=== PATIENT | male | born 1990 | race Caucasian/White ===

== ENCOUNTER 2017-09-12 14:42 | Emergency (ER) | payer SELFPAY ==
[2017-09-12 14:52] VITALS: BP 158/94; PULSE 138; RESP 20; TEMP 36.9; O2SAT 93
[2017-09-12 16:37] VITALS: BP 151/85; PULSE 126; RESP 16; O2SAT 99
--- NOTE | 2017-09-12 17:03 | ED.ANXIETY ---
HPI - Anxiety <NOEL Lucio - Last Filed: 09/12/17 22:32> General Chief Complaint: Anxiety Stated Complaint: PANIC ATTACK Time Seen by Provider: 09/12/17 17:03 Source: patient History of Present Illness HPI narrative: 27-year-old male here for complaint of feeling anxious starting since this morning. Patient states that he did a large amount of cocaine this morning and then felt anxious. He denies any chest pain. He denies any shortness of breath. He does report that he was hyperventilating earlier. No nausea or vomiting. No fevers no chills. After waiting in the waiting room for a while his symptoms have resolved. He states he feels much better at this timeframe and has no complaints. He states he desires to go home. MD complaint: anxiety Related Data Previous Rx's Medication Instructions Recorded chlordiazepoxide HCl 25 mg PO SEE INSTRUCTIONS #30 cap 01/16/17 famotidine [Pepcid] 40 mg PO QDAY 30 Days #0 01/16/17 tramadol 50 mg PO Q4HP PRN #5 tab 01/16/17 lorazepam 1 mg tablet 1 mg PO BIDP PRN #30 tab 06/23/17 Review of Systems <NOEL Lucio - Last Filed: 09/12/17 22:32> Constitutional Denies chills, Denies fever(s), Denies lethargy and Denies weakness Eyes Denies change in vision, Denies eye discharge, Denies irritation and Denies loss of vision ENT Ears, Nose, Mouth, and Throat: Denies change in voice, Denies neck pain and Denies sore throat Cardiovascular Denies chest pain, Denies irregular heart rhythm, Denies lightheadedness, Denies palpitations, Denies dyspnea, Denies dyspnea on exertion and Denies orthopnea Respiratory Denies cough, Denies dyspnea, Denies dyspnea on exertion and Denies wheezing Gastrointestinal Gastrointestinal: Denies abdominal pain, Denies change in bowel habits, Denies diarrhea, Denies nausea and Denies vomiting Genitourinary Denies hematuria, Denies flank pain, Denies urinary incontinence and Denies urinary urgency Musculoskeletal Denies neck pain Integumentary/Breasts Denies pruritus, Denies erythema, Denies rash and Denies wounds Neurologic Denies loss of vision and Denies weakness Psychiatric Reports anxiety Endocrine Denies palpitations Hematologic/Lymphatic Denies easy bruising Allergic/Immunologic Denies wheezing Exam <NOEL Lucio - Last Filed: 09/12/17 22:32> Initial Vital Signs Initial Vital Signs: Vital Signs Temperature 98.5 F 09/12/17 14:52 Pulse Rate 138 H 09/12/17 14:52 Respiratory Rate 20 09/12/17 14:52 Blood Pressure 158/94 H 09/12/17 14:52 Pulse Oximetry 93 09/12/17 14:52 Const General: cooperative and well developed Nutritional Appearance: well nourished Orientation: alert, awake, oriented x3 and not confused HENMI Mouth: oral mucosae normal and moist mucous membranes Throat: tonsils normal and uvula midline Eyes Conjunctivae: conjunctivae normal Sclera: sclerae normal Pupils: PERRL EOM: EOM intact bilaterally Resp Effort & Inspection: normal respiratory effort, able to speak in complete sentences, no respiratory distress and no use of accessory muscles Auscultation: clear to auscultation bilaterally, no rales, no rhonchi and no wheezes Cardio Rate: regular rate Rhythm: regular rhythm Heart Sounds: no click, no gallops, no murmurs and no rubs Pulses: normal peripheral pulses Skin General: no rashes or lesions noted, No jaundice and No petechiae Neuro General: alert, oriented x3, gait normal and no focal motor deficits Speech: speech normal <Dagoberto Salcedo DO - Last Filed: 09/18/17 18:23> Initial Vital Signs Initial Vital Signs: Vital Signs Temperature 98.5 F 09/12/17 14:52 Pulse Rate 138 H 09/12/17 14:52 Respiratory Rate 20 09/12/17 14:52 Blood Pressure 158/94 H 09/12/17 14:52 Pulse Oximetry 93 09/12/17 14:52 Course <NOEL Lucio - Last Filed: 09/12/17 22:32> Vital Signs - 8 hr 09/12/17 14:52 09/12/17 16:37 09/12/17 18:02 Temperature 98.5 F Pulse Rate 138 H 126 H 105 H Respiratory Rate 20 16 16 Blood Pressure 158/94 H Blood Pressure [Right Arm] 151/85 H 132/74 H Pulse Oximetry 93 99 96 09/12/17 19:03 Temperature Pulse Rate 90 Respiratory Rate 18 Blood Pressure 147/90 H Blood Pressure [Right Arm] Pulse Oximetry 95 <Dagoberto Salcedo DO - Last Filed: 09/18/17 18:23> Vital Signs - 8 hr 09/12/17 14:52 09/12/17 16:37 09/12/17 18:02 Temperature 98.5 F Pulse Rate 138 H 126 H 105 H Respiratory Rate 20 16 16 Blood Pressure 158/94 H Blood Pressure [Right Arm] 151/85 H 132/74 H Pulse Oximetry 93 99 96 09/12/17 19:03 Temperature Pulse Rate 90 Respiratory Rate 18 Blood Pressure 147/90 H Blood Pressure [Right Arm] Pulse Oximetry 95 MDM - Anxiety <NOEL Lucio - Last Filed: 09/12/17 22:32> MDM Narrative Medical decision making narrative: Signs and symptoms of his anxiety and hyperventilating have resolved since he has been in the emergency room. His symptoms secondary to the cocaine and alcohol use this morning. His heart rate normalized from the time of admission. Patient desires to go home at this timeframe. He is encouraged to hydrate with plenty of fluids and rest. Follow up with primary care provider. Return emergency room for any worsening symptoms. Discharge Plan Departure Patient Disposition: Home, Self-Care Clinical Impression: Cocaine abuse Discharge Date/Time: 09/12/17 19:04 Interventions: ED Discharge Assessment Last Done: 09/12/17 19:03 Instructions: DI for Cocaine Use Disorder Activity Restrictions/Additional Instructions: Signs and symptoms are secondary to the cocaine and alcohol use earlier today. Symptoms have resolved over time while you were in the emergency room. Plenty of fluids and rest. Follow up with her primary care provider. For any worsening symptoms return to the emergency room. Prescriptions: No Action famotidine [Pepcid] 40 MG tablet 40 mg PO QDAY 30 Days Qty: 0 RF: 0 tramadol 50 MG tablet 50 mg PO Q4HP PRNQty: 5 RF: 0 chlordiazepoxide HCl 25 MG capsule 25 mg PO SEE INSTRUCTIONS Qty: 30 RF: 0 lorazepam [Ativan] 1 mg tablet 1 mg PO BIDP PRN (Reason: anxiety) Qty: 30 RF: 1 Referrals: Erika Jimenez PA-C [Primary Care Provider] - <Dagoberto Salcedo DO - Last Filed: 09/18/17 18:23> Cosign ED Attending Yuanature Attestation: I was available for consultation during this patient's emergency department encounter
[2017-09-12 18:02] VITALS: BP 132/74; PULSE 105; RESP 16; O2SAT 96
--- NOTE | 2017-09-12 18:50 | PC.NURSE ---
Admits to [facility] abuse and use of cocaine.
--- NOTE | 2017-09-12 18:53 | PC.NURSE ---
Patient sitting on floor in room with mom. Not on monitor at this time, ok per PELP who states patient will be DC'd shortly.
[2017-09-12 19:03] VITALS: BP 147/90; PULSE 90; RESP 18; O2SAT 95
== END 2017-09-12 19:04 | disposition home or self-care (01) ==
PROVIDERS: Emergency Provider Nurse Practitioner Family; Family Provider Physician Assistant; PCP Physician Assistant
DX: F14.10 Cocaine abuse, uncomplicated (principal)
CPT/HCPCS: 99282

== ENCOUNTER 2019-11-22 13:28 | Emergency (ER) | payer OTHER, MEDICAID, SELFPAY ==
[2019-11-22] VITALS (23 sets, daily range): BP systolic 138–181; BP diastolic 92–128; PULSE 71–104; RESP 12–27; TEMP 36.6; O2SAT 83–100
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
[2019-11-22] MEDS: fentaNYL 100 MCG/2 ML INJ (14:03)
[2019-11-22] MEDS: ONDANSETRON 4 MG/2 ML INJ (14:04)
[2019-11-22 14:08] LABS: Add Manual Diff / Slide Review NO; Basophils Absolute Auto 0 /uL (0-100); Basophils Percent Auto 0.3 % (0-2); Eosinophils Absolute Auto 0 /uL (0-450); Eosinophils Percent Auto 0.1 % (2-4); Hemoglobin 15.8 g/dL (13.5-17.5); Lymphocytes Absolute Auto 1400 /uL (1100-4500); Mean Corpuscular Hemoglobin 31.6 PG (26-34); Mean Corpuscular Volume 90.2 fL (80-100); Monocytes Absolute Auto 700 /uL (0-900); Monocytes Percent Auto 6.8 % (3-14); Neutrophils Absolute Auto 8500 /uL (1500-7000); Neutrophils Percent Auto 79.8 % (50-75); Platelet Count 275 X10^3/uL (150-400); Red Blood Cell Count 4.99 X10^6/uL (4.5-5.9); Red Cell Distribution Width 13.6 % (11.6-14.8); White Blood Cell Count 10.6 X10^3/uL (4.5-11.0)
[2019-11-22 14:19] LABS: Alanine Aminotransferase 22 IU/L (<50); Albumin 5.1 g/dL (3.5-5.0); Albumin Globulin Ratio 1.3 (1.0-2.8); Alkaline Phosphatase 71 U/L (38-126); Aspartate Aminotransferase 33 IU/L (17-59); BUN Creatinine Ratio 7.8 (6-22); Blood Urea Nitrogen 7 mg/dL (9-20); Calcium 10.7 mg/dL (8.4-10.2); Carbon Dioxide 26 mmol/L (22-32); Chloride 101 mmol/L (98-107); Creatine Kinase 326 U/L (55-170); Estimated Glomerular Filt Rate > 60.0 mL/min (>60); Ethanol (ETOH) < 10 mg/dL; Globulin 3.9 g/dL (1.7-4.1); Glucose 105 mg/dL (70-100); HEMOLYSIS < 15 (0-50); Lipase 31 U/L (23-300); Potassium 3.7 mmol/L (3.4-5.1); Sodium 139 mmol/L (137-145)
[2019-11-22 14:30] LABS: Troponin I < 0.012 ng/mL (0.01-0.034)
[2019-11-22 14:34] LABS: CKMB % Relative Index 1.2 % (1.5-5.0); Creatine Kinase MB 4.06 ng/mL (<2.37)
[2019-11-22] MEDS: SODIUM CHLORIDE 0.9% 1,000 ML 125 ML IV (14:40)
--- NOTE | 2019-11-22 15:15 | PC.NURSE ---
patient reporting increasing back pain, provider aware, verbal sublimaze order received.
[2019-11-22] MEDS: fentaNYL 100 MCG/2 ML INJ IV (15:24)
--- NOTE | 2019-11-22 16:26 | PC.NURSE ---
collar cleard and removed by ROCAEL
== END 2019-11-22 16:47 | disposition home or self-care (01) ==
PROVIDERS: Emergency Provider Emergency Medicine
DX: M54.6 Pain in thoracic spine (principal); S20.212A Contusion of left front wall of thorax, initial encounter; R07.9 Chest pain, unspecified; R10.9 Unspecified abdominal pain; V29.9XXA Motorcycle rider (driver) (passenger) injured in unspecified traffic accident, initial encounter
CPT/HCPCS: 36415; 70450; 71045; 71260; 72125; 72170; 74177; 80053; 80320; 82550; 82553; 83690; 84484; 85025; 86850; 86900; 86901; 93005; 96361; 96374; 96375; 96376; 99285; J2405; J3010; Q9967

== ENCOUNTER 2022-10-26 11:14 | Emergency (ER) | payer OTHER, MEDICAID, SELFPAY ==
[2022-10-26 11:33] VITALS: BP 129/96; PULSE 139; RESP 18; TEMP 36.8; O2SAT 99; BMI 25.8
--- NOTE | 2022-10-26 11:40 | ED.GENADULT ---
HPI - General Adult General Chief complaint: Toxicology Problem Stated complaint: chest arm pain Time Seen by Provider: 10/26/22 11:30 Source: patient Mode of arrival: Ambulatory Limitations: no limitations History of Present Illness HPI narrative: 32-year-old male who is here for chest pain. He states that he took ?a bunch? of Adderall this morning. He states that it was prescribed to him. He was not taking it in order to hurt himself but was taking it in order to get high. It is somewhat difficult to obtain an HPI as he is very tangential with his speech. He denied any other drugs or alcohol. Related Data Home Medications Medication Instructions Recorded Confirmed acetaminophen 500 mg tablet 1,000 mg PO Q6H PRN 07/26/18 05/30/21 (Tylenol Extra Strength) veokvgy-yraducvzemimv-xtepmvxs 250 1 tab PO Q4-6H PRN 07/26/18 05/30/21 mg-250 mg-65 mg tablet (Excedrin Extra Strength) Previous Rx's Medication Instructions Recorded dextroamphetamine-amphetamine ER See Rx Instructions .Route 05/30/22 20 mg 24hr capsule,extend release .COMPLEX #90 caps dextroamphetamine-amphetamine ER See Rx Instructions .Route 05/30/22 20 mg 24hr capsule,extend release .COMPLEX #90 caps dextroamphetamine-amphetamine ER See Rx Instructions .Route 09/18/22 20 mg 24hr capsule,extend release .COMPLEX #90 caps Allergies Allergy/AdvReac Type Severity Reaction Status Date / Time No Known Drug Allergies Allergy Verified 05/30/21 15:24 Review of Systems Neurologic Neurologic: Reports system reviewed and no additional complaints, except as documented Hematologic/Lymphatic On Anticoagulants: No Patient History Medical History (Updated 10/26/22 @ 14:37 by Dagoberto Salcedo DO) Alcohol abuse Alcoholism Anxiety Cocaine abuse History of pancreatitis Tachycardia Social History Smoking Status: Current some day smoker Tobacco: How many years used: 10 quit status: not considering quitting second hand exposure: No alcohol intake: current substance use type: does not use Smoking Status: Current some day smoker alcohol intake frequency: 3 or more drinks per day Substance Use Type: crack/cocaine Exam Initial Vital Signs Initial Vital Signs: Vital Signs Temperature 98.2 F 10/26/22 11:33 Pulse Rate 139 H 10/26/22 11:33 Respiratory Rate 18 10/26/22 11:33 Blood Pressure 129/96 H 10/26/22 11:33 Pulse Oximetry 99 10/26/22 11:33 Oxygen Delivery Method Room Air 10/26/22 11:33 HENMT Head: normal to inspection and normocephalic Resp Effort & Inspection: normal respiratory effort Auscultation: clear to auscultation bilaterally Cardio Rate: regular rate Rhythm: regular rhythm GI Inspection: normal to inspection Skin General: no rashes or lesions noted Neuro General: patient alert, patient awake and moves all extremities Psych Other: Very tangential. Not suicidal. Not homicidal. Is cooperative. Course Orders Ordered: ED Orders 10/26/22 11:29 EKG-12 Lead Stat Discontinued Medications Lorazepam (Lorazepam 0.5 Mg Tablet) 1 mg PO NOW ONE Stop: 10/26/22 11:40 Last Admin: 10/26/22 11:57 Dose: 1 mg Documented By: CHANDRAKANT Lorazepam (Lorazepam 0.5 Mg Tablet) 1 mg PO NOW ONE Stop: 10/26/22 13:42 Last Admin: 10/26/22 14:00 Dose: 1 mg Documented By: FEDE Nicotine (Nicotine 21 Mg Patch) 21 mg TOP NOW ONE Stop: 10/26/22 14:02 Last Admin: 10/26/22 14:16 Dose: 21 mg Documented By: CHANDRAKANT Vital Signs Vital signs: Vital Signs - 8 hr 10/26/22 11:33 Temperature 98.2 F Pulse Rate 139 H Respiratory Rate 18 Blood Pressure 129/96 H Pulse Oximetry 99 Oxygen Delivery Method Room Air Medical Decision Making MDM Narrative Medical decision making narrative: Patient is obviously having a reaction to his Adderall. He was having some hallucinations. He is not suicidal. He did receive Ativan which potentially helped his symptoms somewhat but was very anxious in the room and moving around. He stated that he did not want to stay in the emergency department anymore. He stated that he would rather go home. No indication for further workup here. He was advised that he should take all of his medications as directed. Discharge Plan Departure Patient Disposition: Home Clinical Impression: Amphetamine overdose Activity Restrictions/Additional Instructions: No driving for the next 24 hours. It is important that you take all of your medications as directed. Keep all of your scheduled medical appointments. Prescriptions: No Action dextroamphetamine-amphetamine 20 mg capsule,extended release 24hr See Rx Instructions .ROUTE .COMPLEX Qty: 90 0RF Rx Instructions: 40 mg (2 caps) PO QAM and 20 mg (1 cap) PO Q Noon dextroamphetamine-amphetamine 20 mg capsule,extended release 24hr See Rx Instructions .ROUTE .COMPLEX Qty: 90 0RF Rx Instructions: 40 mg (2 caps) PO QAM and 20 mg (1 cap) PO Q Noon; dextroamphetamine-amphetamine 20 mg capsule,extended release 24hr See Rx Instructions .ROUTE .COMPLEX Qty: 90 0RF Rx Instructions: 40 mg (2 tabs) PO QAM and 20 mg (1 tab) PO QNoon; acetaminophen [Tylenol Extra Strength] 500 mg tablet 1,000 mg PO Q6H PRN Excedrin Extra Strength 250-250-65 mg tablet 1 tab PO Q4-6H PRN Referrals: Miscellaneous,Doctor, MD [Primary Care Provider] - Stand Alone Forms: Patient Portal/API
[2022-10-26] MEDS: LORazepam 0.5 MG TABLET 1 MG PO ×2 (11:57→14:00)
[2022-10-26] MEDS: NICOTINE 21 MG PATCH TOP (14:16)
[2022-10-27 12:14] LABS: PCO2 ABG 35.9 mmHg (35-45); pH ABG 7.46 (7.35-7.45)
[2022-10-27 12:15] LABS: HCO3 ABG 25 mmol/L (23-27); Oxygen Saturation ABG 96 % (95-100); PO2 ABG 76 mmHg (80-100); TCO2 ABG 26 mmol/L (23-27)
== END 2022-10-26 14:38 | disposition home or self-care (01) ==
PROVIDERS: Emergency Provider Emergency Medicine
DX: T43.621A Poisoning by amphetamines, accidental (unintentional), initial encounter (principal)
CPT/HCPCS: 36600; 82805; 99283

== ENCOUNTER 2023-02-02 16:51 | Emergency (ER) | payer OTHER, MEDICAID, SELFPAY ==
[2023-02-02 16:56] VITALS: BP 148/107; PULSE 127; RESP 20; TEMP 36.3; O2SAT 98; BMI 25.0
--- NOTE | 2023-02-02 17:41 | PC.NURSE ---
current ciwa is 8, pt requesting placement for rehab
[2023-02-02 17:47] LABS: Add Manual Diff / Slide Review NO; Basophils Absolute Auto 0 /uL (0-100); Basophils Percent Auto 0.9 % (0-2); Eosinophils Absolute Auto 0 /uL (0-450); Eosinophils Percent Auto 0.4 % (2-4); Hematocrit 45.2 % (41-53); Hemoglobin 15.7 g/dL (13.5-17.5); INR 0.9 (0.9-1.3); Lymphocytes Absolute Auto 1700 /uL (1100-4500); Lymphocytes Percent Auto 44.2 % (25-40); Mean Corpuscular HGB Conc 34.6 % (30-36); Mean Corpuscular Hemoglobin 31.5 PG (26-34); Mean Corpuscular Volume 90.9 fL (80-100); Monocytes Absolute Auto 200 /uL (0-900); Monocytes Percent Auto 5.2 % (3-14); Neutrophils Absolute Auto 1900 /uL (1500-7000); Neutrophils Percent Auto 49.3 % (50-75); Platelet Count 225 X10^3/uL (150-400); Prothrombin Time 9.9 SECONDS (9.4-12.5); Red Blood Cell Count 4.98 X10^6/uL (4.5-5.9); Red Cell Distribution Width 14.1 % (11.6-14.8); White Blood Cell Count 3.9 X10^3/uL (4.5-11.0)
[2023-02-02] MEDS: PHENobarbital 65 MG/ML VIAL 260 MG IV (17:49)
[2023-02-02 17:50] LABS: PTT Partial Thromboplastin Tim 30 SECONDS (25.1-36.5)
[2023-02-02 17:53] LABS: Alanine Aminotransferase 43 IU/L (<50); Albumin 4.4 g/dL (3.5-5.0); Albumin Globulin Ratio 1.3 (1.0-2.8); Alkaline Phosphatase 74 U/L (38-126); Aspartate Aminotransferase 84 IU/L (17-59); BUN Creatinine Ratio 16.1 (6-22); Bilirubin Total 0.7 mg/dL (0.2-1.3); Blood Urea Nitrogen 15 mg/dL (9-20); Calcium 8.9 mg/dL (8.4-10.2); Carbon Dioxide 26 mmol/L (22-32); Chloride 109 mmol/L (98-107); Estimated Glomerular Filt Rate > 60 mL/min (>60); Globulin 3.4 g/dL (1.7-4.1); Glucose 99 mg/dL (70-100); HEMOLYSIS < 15 (0-50); Lipase 258 U/L (23-300); Potassium 4.4 mmol/L (3.4-5.1); Sodium 146 mmol/L (137-145); Total Protein 7.8 g/dL (6.3-8.2)
[2023-02-02] MEDS: SODIUM CHLORIDE 0.9% 1,000 ML 1000 ML IV (17:59)
[2023-02-02 18:01] LABS: Ethanol (ETOH) 382 mg/dL
--- NOTE | 2023-02-02 18:10 | CM.SWNOTE ---
ED PROCEDURAL NURSE Assessment PROCEDURAL NURSE - Cps Team Lead Assessment PROCEDURAL NURSE/Cps Team Lead Assessment Time Spent with Patient Start date 02/02/23 Visit Start Time 17:40 End date 02/02/23 Visit End Time 17:50 Total time Care Management spent on 15 minutes patient visit-in minutes Substance Abuse Screening Include Onset, Duration, Intensity Presenting Problem Patient presents to ED due to concern for ETOH withdrawal symptoms, patient states he is seeking detox. Patient does not recall when his last drink was earlier today but patient states he drank a lot of alcohol (liquor and beer). Patient states he has been on a 3 week hernandez and drank anything he could find. Patient states I was even stealing liquor. Patient endorses he has been drinking more than 750ml of ETOH a day. Patient states his ex- girlfriend drove him here today. Patient presents with a 382 BAL. Precipitating Event(s) Patient cannot identify a specific trigger. Patient states he started on antidepressants a few weeks ago, patient states he wants to be a better father to his kids. Patient states his kids are in the care of their mother/his ex girlfriend currently. Patient Strengths Patient endorses he is seeking to be sober so he can be a good father to his children. Current Behavioral Health Provider(s) Patient has hx of seeing Include Facility, Provider, Ph. # Psychiatrist Dr. Concepcion with [facility] clinic (Ph. # [phone]) patient was discharged from the clinic in September 2022 due to missed appts and lack of correspondence with clinic. Patient endorses that his PCP Dr. Jordan prescribes his adderall and antidepressant. Family Hx of Behavioral Abuse None reported Rehab Facilities? ((Date(s), Location(s) Patient endorses he has been ) to [facility] and [facility] in [facility] for detox and rehab treatment. Patient is not able to provide dates. History of Withdrawal? Seizures? Patient endorses tremors, Nausea and vomiting. Patient presents with anxiety as well. Patient denies hx of seizures . Longest Period of Sobriety Patient endorses his longest period of sobriety has been a few months. Psychosocial information & Support Patient is 32 y/o male who Systems resides in [place] on [facility]. Patient has his mother and father listed as supports. 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 Mental Status Orientation (Person/Place/Time) A/Ox4 Stated Mood I drank a lot Affect (Congruent with Mood?) anxious, congruent with mood Thought Content - Specify/Describe None reported Obsessions, Delusions, Hallucinations Thought Processes (Nwhkevy-Pbkdaexz-Uyhr circumstantial Qhrjkcgh-Txkwefmu-Ndbkadmtbx- Rauzudcuidmfxe-Mmpqfmb-Haltqmpkwmmj- Thought Blocking) Speech (Efupdb-Tcgg-Slacwbs-Rapid-Soft- rapid/slurred Loud-Pressured) Motor (Fauarz-Cdafskzvg-Rgvg-Other) excessive, patient is shaking with tremors. Insight (Hduc-Mabs-Jrqb/Limited) fair Judgement (Uwub-Dqpc-Uxca/Limited) fair Impulse Control (Adequate-Impaired) adequate Memory (Gsfnwjari-Twrjkv-Kdtcsx, somewhat intact, not formally Impaired-Intact) assessed. Patient unable to identify when his last drink was and exactly how much he drank. Concentration (Intact-Impaired) intact Attention (Intact-Impaired) intact Behavior (Appropriate-Inappropriate) appropriate Additional Comment Patient presents as cooperative and communicative. Risk Assessment Suicidal Ideation (Plan) No Homicidal Ideation (Plan) No Intervention Intervention PROCEDURAL NURSE enters room to meet with patient. Patient presents with tremors and appears to be currently withdrawing from ETOH. Patient endorses he drank large amounts of ETOH (liquor and beer) and he is not able to quantify how much or when his last drink was. Patient states his last drink was sometime earlier today and he has drank at least 750 ml of ETOH. Patient presents in some physical distress and is seeking detox for his withdrawals. Patient is not yet medically clear at this time and will likely board in the ED over night. It is the opinion of this PROCEDURAL NURSE that patient is appropriate for and will benefit from detox upon medical clearance. ED provider to evaluate patient to determine medical clearance. Plan RA Plan ED team to seek detox for patient upon medical clearance . Etta Cochran, PIT MANAGER
[2023-02-02 18:42] LABS: UR Morphine/Opiate cutoff 300 Negative (Negative); Ur Creatinine Normal (Normal); Ur Specific Gravity Normal (Normal); Urine Amphetamines Negative (Negative); Urine Barbiturates Negative (Negative); Urine Benzodiazepines Negative (Negative); Urine Cocaine Negative (Negative); Urine MDMA Negative (Negative); Urine Methadone Negative (Negative); Urine Methamphetamines Negative (Negative); Urine Oxycodone Negative (Negative); Urine Phencyclidine Negative (Negative); Urine Tetrahydrocannabinol Negative (Negative); Urine Tricyclic Antidepressant Negative (Negative); Urine pH Normal (Normal)
[2023-02-02 18:46] LABS: Bacteria Urine Occasional (0-1); Hyaline Casts Urine 0-1/LPF; Mucus Urine 1+ (Negative); RBC Urine 0-1/HPF (0-5/HPF); Squamous Epithelial Cell Urine 0-1 /HPF (0-5/HPF); Urine Comments N; WBC Urine 0-1/HPF (0-5/HPF)
--- NOTE | 2023-02-02 18:57 | PC.NURSE ---
MEDICAL SPECIALIST NOTE Patient is in silly goofy mood, walked/danced down hallway shirtless. assisted to cover and back to bed.
[2023-02-02] MEDS: LORazepam 2 MG/ML INJ 1 MG IV (19:33)
[2023-02-02] MEDS: NICOTINE 21 MG PATCH TOP (20:42)
--- NOTE | 2023-02-02 21:27 | ED_ITS ---
HPI - Alcohol General Chief Complaint: Toxicology Problem Stated Complaint: alcohol withdrawls really bad Time Seen by Provider: 02/02/23 17:28 Source: patient Mode of arrival: Ambulatory History of Present Illness HPI narrative: 32-year-old male with a history of alcohol abuse presenting requesting alcohol detox. He is also apparently had some nausea and vomiting. He is not having abdominal pain he is not having fevers. Has a history of alcohol withdrawal seizures in the past. States that his last drink was earlier in the day. He drinks regularly. Related Data Home Medications Medication Instructions Recorded Confirmed acetaminophen 500 mg tablet 1,000 mg PO Q6H PRN 07/26/18 05/30/21 (Tylenol Extra Strength) tnfyzdv-xcxuwklqdtndb-yhiacnwk 250 1 tab PO Q4-6H PRN 07/26/18 05/30/21 mg-250 mg-65 mg tablet (Excedrin Extra Strength) Previous Rx's Medication Instructions Recorded dextroamphetamine-amphetamine ER See Rx Instructions .Route 05/30/22 20 mg 24hr capsule,extend release .COMPLEX #90 caps dextroamphetamine-amphetamine ER See Rx Instructions .Route 05/30/22 20 mg 24hr capsule,extend release .COMPLEX #90 caps dextroamphetamine-amphetamine ER See Rx Instructions .Route 09/18/22 20 mg 24hr capsule,extend release .COMPLEX #90 caps Allergies Allergy/AdvReac Type Severity Reaction Status Date / Time No Known Drug Allergies Allergy Verified 05/30/21 15:24 Patient History Medical History (Updated 02/02/23 @ 21:27 by Perez Klein MD) History of pancreatitis Anxiety Tachycardia Cocaine abuse Alcohol abuse Alcoholism Social History Smoking Status: Current some day smoker Tobacco: How many years used: 10 quit status: not considering quitting second hand exposure: No alcohol intake: current substance use type: does not use Smoking Status: Current some day smoker alcohol intake frequency: 3 or more drinks per day Alcohol type: beer, wine and hard liquor Substance Use Type: crack/cocaine Exam Initial Vital Signs Initial Vital Signs: Vital Signs Temperature 97.4 F L 02/02/23 16:56 Pulse Rate 127 H 02/02/23 16:56 Respiratory Rate 20 02/02/23 16:56 Blood Pressure 148/107 H 02/02/23 16:56 Pulse Oximetry 98 02/02/23 16:56 Oxygen Delivery Method Room Air 02/02/23 16:56 Const General: No acute distress, disheveled and intoxicated appearing [facility] Head: normocephalic and atraumatic Eyes Pupils: PERRL EOM: EOM intact bilaterally Resp Effort & Inspection: normal respiratory effort Auscultation: clear to auscultation bilaterally Cardio Rate: tachycardic GI Palpation: soft and No tender Skin General: dry skin and warm Neuro General: patient awake, patient oriented x3 and gait normal Psych Appearance: disheveled Affect: labile affect Thought Content: normal Judgment: fair Course Orders Ordered: Discontinued Medications Sodium Chloride (Normal Saline 0.9%) 1,000 mls @ 1,000 mls/hr IV BOLUS ONE Stop: 02/02/23 18:51 Last Infusion: 02/02/23 19:16 Dose: Infused Documented By: Admin: 02/02/23 17:59 Dose: 1,000 mls/hr Documented By: BROOKLYN Lorazepam (Lorazepam 2 Mg/Ml Inj) 1 mg IV NOW ONE Stop: 02/02/23 19:26 Last Admin: 02/02/23 19:33 Dose: 1 mg Documented By: BROOKLYN Nicotine (Nicotine 21 Mg Patch) 21 mg TOP NOW ONE Stop: 02/02/23 20:38 Last Admin: 02/02/23 20:42 Dose: 21 mg Documented By: BROOKLYN Phenobarbital (Phenobarbital 65 Mg/Ml Vial) 260 mg IV NOW ONE Stop: 02/02/23 17:42 Last Admin: 02/02/23 17:49 Dose: 260 mg Documented By: BROOKLYN Reevaluation(s) Reevaluation #2: Patient was standing at the doorway room requesting discharge. He has been calm and cooperative for the last hour and a half. It has been a couple hours since he received any sedating medications, he is definitely still intoxicated on alcohol however that appears to be his typical state. He is ambulatory with a steady gait his speech is clear and he can elaborate understanding of risks related to his ongoing alcohol use and his present intoxication. At this point I do not think that I can continue to hold him involuntarily. He is discharged against medical advice. Vital Signs Vital signs: Vital Signs - 8 hr 02/02/23 16:56 Temperature 97.4 F L Pulse Rate 127 H Respiratory Rate 20 Blood Pressure 148/107 H Pulse Oximetry 98 Oxygen Delivery Method Room Air MDM - Alcohol Lab Data Lab results narrative: CBC with diff and CMP are unremarkable. Lipase was normal. Ethanol elevated at 382. Urine drug screen is negative 02/02/23 17:35 02/02/23 17:35 Labs: Lab Results 02/02/23 02/02/23 Range/Units 17:35 18:10 WBC 3.9 L (4.5-11.0) X10^3/uL RBC 4.98 (4.5-5.9) X10^6/uL Hgb 15.7 (13.5-17.5) g/dL Hct 45.2 (41-53) % MCV 90.9 (80-100) fL MCH 31.5 (26-34) PG MCHC 34.6 (30-36) % RDW 14.1 (11.6-14.8) % Plt Count 225 (150-400) X10^3/uL Neut % (Auto) 49.3 L (50-75) % Lymph % (Auto) 44.2 H (25-40) % [place]dwell % (Auto) 5.2 (3-14) % Eos % (Auto) 0.4 L (2-4) % Baso % (Auto) 0.9 (0-2) % Neut # (Auto) 1900 (9740-0411) /uL Lymph # (Auto) 1700 (9326-3717) /uL Caldwell # (Auto) 200 (0-900) /uL Eos # (Auto) 0 (0-450) /uL Baso # (Auto) 0 (0-100) /uL PT 9.9 (9.4-12.5) SECONDS INR 0.9 (0.9-1.3) APTT 30 (25.1-36.5) SECONDS Sodium 146 H (137-145) mmol/L Potassium 4.4 (3.4-5.1) mmol/L Chloride 109 H (98-107) mmol/L Carbon Dioxide 26 (22-32) mmol/L BUN 15 (9-20) mg/dL Creatinine 0.93 (0.66-1.25) mg/dL Estimated GFR > 60 (>60) mL/min BUN/Creatinine Ratio 16.1 (6-22) Glucose 99 (70-100) mg/dL Calcium 8.9 (8.4-10.2) mg/dL Total Bilirubin 0.7 (0.2-1.3) mg/dL AST 84 H (17-59) IU/L ALT 43 (<50) IU/L Alkaline Phosphatase 74 (38-126) U/L Total Protein 7.8 (6.3-8.2) g/dL Albumin 4.4 (3.5-5.0) g/dL Globulin 3.4 (1.7-4.1) g/dL Albumin/Globulin Ratio 1.3 (1.0-2.8) Lipase 258 (23-300) U/L Urine RBC 0-1/hpf (0-5/HPF) Urine WBC 0-1/hpf (0-5/HPF) Ur Squamous Epith Cells 0-1 /hpf (0-5/HPF) Urine Bacteria Occasional (0-1) (None) Hyaline Casts 0-1/lpf (None) Urine Mucus 1+ H (Negative) Micro UA Comment N U Opiates 300ng/mL cut Negative (Negative) Ur Oxycodone Screen Negative (Negative) Urine Methadone Screen Negative (Negative) Ur Barbiturates Screen Negative (Negative) U Tricyclic Antidepress Negative (Negative) Ur Phencyclidine Scrn Negative (Negative) Ur Amphetamines Screen Negative (Negative) U Methamphetamines Scrn Negative (Negative) Ur MDMA Scrn (Ecstasy) Negative (Negative) U Benzodiazepines Scrn Negative (Negative) Urine Cocaine Screen Negative (Negative) U Marijuana (THC) Screen Negative (Negative) Urine pH Normal (Normal) Urine Specific [place] Normal (Normal) Ethyl Alcohol 382 H ( - 10) mg/dL Ur Creatinine Normal (Normal) Urine Dip Bedside Urine Glucose Negative Bedside Urine Bilirubin - Negative Bedside Urine Ketone - Negative Urine Specific [place] 1.025 Bedside Urine Occult Blood +/- Bedside Urine pH 6.0 Bedside Urine Protein + 30 Bedside Urine Urobilinogen 0.2 Bedside Urine Nitrite - Negative Bedside Urine Leukocytes - Negative Esterase Treatment and Disposition Social Determinants of Health that impact treatment or disposition: Active use of alcohol MDM Narrative Medical decision making narrative: 32-year-old male with a significant alcohol use history presenting requesting detox. He was initially treated with phenobarbital and then lorazepam, he then began requesting to be discharged. He was observed for 2 hours after his last dose of lorazepam he is not driving he is fully alert oriented although his blood alcohol is I am sure still elevated, I do not think that he is incapable of making an informed decision. He is signed out against medical advice. Discharge Plan Departure Patient Disposition: Left Against Medical Advice Clinical Impression: Alcohol withdrawal Activity Restrictions/Additional Instructions: We are discharging against medical advice. I am concerned that you are still fairly intoxicated and you have also received some sedating medications. You are however walking and talking and able to engage in a reasonable conversation acknowledging the risks that you assume. You are going to walk directly home. I hope that you do not drink anymore alcohol and I hope that you do in fact go to treatment soon. You are always welcome to return to the emergency department if you need our assistance. Prescriptions: No Action dextroamphetamine-amphetamine 20 mg capsule,extended release 24hr See Rx Instructions .ROUTE .COMPLEX Qty: 90 0RF Rx Instructions: 40 mg (2 caps) PO QAM and 20 mg (1 cap) PO Q Noon dextroamphetamine-amphetamine 20 mg capsule,extended release 24hr See Rx Instructions .ROUTE .COMPLEX Qty: 90 0RF Rx Instructions: 40 mg (2 caps) PO QAM and 20 mg (1 cap) PO Q Noon; dextroamphetamine-amphetamine 20 mg capsule,extended release 24hr See Rx Instructions .ROUTE .COMPLEX Qty: 90 0RF Rx Instructions: 40 mg (2 tabs) PO QAM and 20 mg (1 tab) PO QNoon; acetaminophen [Tylenol Extra Strength] 500 mg tablet 1,000 mg PO Q6H PRN Excedrin Extra Strength 250-250-65 mg tablet 1 tab PO Q4-6H PRN Referrals: Miscellaneous,Doctor, MD [Primary Care Provider] - Stand Alone Forms: Patient Portal/API, Against Medical Advice
[2023-02-02 21:32] VITALS: BP 159/106; PULSE 124; RESP 18; O2SAT 98
== END 2023-02-02 21:34 | disposition left against medical advice (07) ==
PROVIDERS: Emergency Medicine; Emergency Provider Emergency Medicine
DX: F10.239 Alcohol dependence with withdrawal, unspecified (principal); Y90.8 Blood alcohol level of 240 mg/100 ml or more
CPT/HCPCS: 36415; 80053; 80305; 80320; 81003; 81015; 83690; 85025; 85610; 85730; 87086; 93005; 93010; 96361; 96374; 96375; 99284; J2060; J2560

== ENCOUNTER 2023-02-03 15:00 | Emergency (ER) | payer OTHER, MEDICAID, SELFPAY ==
[2023-02-03] VITALS (13 sets, daily range): BP systolic 126–173; BP diastolic 79–102; PULSE 103–127; RESP 12–26; TEMP 36.6–36.9; O2SAT 86–100; BMI 24.3
--- NOTE | 2023-02-03 15:05 | ED_ITS ---
HPI - General Adult <DO Butch Hodgson Filed: 02/04/23 07:36> General Chief complaint: Toxicology Problem Stated complaint: alcohol withdrawl Time Seen by Provider: 02/03/23 15:05 Source: patient, RN notes reviewed and old records reviewed Mode of arrival: Ambulatory Limitations: no limitations History of Present Illness HPI narrative: 32-year-old male with history of chronic alcohol abuse on Wellbutrin and Adderall. Patient presents with request for alcohol detox. Patient was here last night and left Against Medical Advice after receiving medications but before having placement. States it after he left he did drink alcohol again has not sure how much. Patient states he does not think that he had anything in the last couple hours. Denies any trauma or falls. He does note he is having more pain today in the right upper quadrant area. Denies fevers, denies chest pain or shortness of breath. He has been nauseated but had no vomiting. Denies any diarrhea, has had some constipation but still stooling, no black or bloody stools. Denies any urinary symptoms. No new swelling in extremities. Patient states he has not had any other ingestions. Patient states home medications are Wellbutrin and Adderall. He denies any recent surgeries. Patient does use tobacco daily, drinks approximately a 5th of alcohol daily, does use recreational drugs at times including cocaine. Denies recent ingestion. Related Data Home Medications Medication Instructions Recorded Confirmed acetaminophen 500 mg tablet 1,000 mg PO Q6H PRN 07/26/18 05/30/21 (Tylenol Extra Strength) aphsccf-[id number]-rhtvveax 250 1 tab PO Q4-6H PRN 07/26/18 05/30/21 mg-250 mg-65 mg tablet (Excedrin Extra Strength) Previous Rx's Medication Instructions Recorded dextroamphetamine-amphetamine ER See Rx Instructions .Route 05/30/22 20 mg 24hr capsule,extend release .COMPLEX #90 caps dextroamphetamine-amphetamine ER See Rx Instructions .Route 05/30/22 20 mg 24hr capsule,extend release .COMPLEX #90 caps dextroamphetamine-amphetamine ER See Rx Instructions .Route 09/18/22 20 mg 24hr capsule,extend release .COMPLEX #90 caps Allergies Allergy/AdvReac Type Severity Reaction Status Date / Time No Known Drug Allergies Allergy Verified 05/30/21 15:24 Review of Systems <DO Butch Hodgson Filed: 02/04/23 07:36> Review of Systems ROS Unobtainable: All systems reviewed & are unremarkable except as noted in HPI and below Patient History <Aleida CristobalDO - Last Filed: 02/04/23 07:36> Medical History (Updated 02/03/23 @ 21:50 by Laurence Sumner MD) History of pancreatitis Anxiety Tachycardia Cocaine abuse Alcohol abuse Alcoholism Social History Smoking Status: Current some day smoker Tobacco: How many years used: 10 quit status: not considering quitting second hand exposure: No alcohol intake: current substance use type: does not use Smoking Status: Current some day smoker alcohol intake frequency: 3 or more drinks per day Alcohol type: beer, wine and hard liquor Substance Use Type: crack/cocaine Exam <Aleida CristobalDO - Last Filed: 02/04/23 07:36> Narrative Exam Narrative: GENERAL: Alert and oriented x three, male in mild distress. Slurred speech does smell of alcohol. HEENT: Head normocephalic, atraumatic, EOMI, pupils reactive, face symmetric, moist mucous membranes NECK: Supple, full range of motion CARDIOVASCULAR: Regular rate and rhythm without murmurs, rubs or gallops. RESPIRATORY: Breath sounds equal bilaterally, no wheezes rales or rhonchi. ABDOMEN: Soft, positive for right upper quadrant tenderness. No ecchymosis or skin changes. Normoactive bowel sounds all 4 quadrants. No guarding or rebound, rigidity, no mass : No CVA tenderness EXTREMITIES: Normal range of motion, no clubbing or edema. Neurovascularly intact NEUROLOGICAL: Cranial nerves II through XII grossly intact. Moving all extremities, patient ambulated back from bathroom without assistance. SKIN: Warm, dry, no petechiae, no rashes or lesions. Initial Vital Signs Initial Vital Signs: Vital Signs Temperature 98.4 F 02/03/23 15:03 Pulse Rate 120 H 02/03/23 15:03 Respiratory Rate 26 H 02/03/23 15:03 Blood Pressure 173/82 H 02/03/23 15:03 Pulse Oximetry 100 02/03/23 15:03 Oxygen Delivery Method Room Air 02/03/23 15:03 <Laurence Sumner MD - Last Filed: 02/03/23 21:50> Initial Vital Signs Initial Vital Signs: Vital Signs Temperature 98.4 F 02/03/23 15:03 Pulse Rate 120 H 02/03/23 15:03 Respiratory Rate 26 H 02/03/23 15:03 Blood Pressure 173/82 H 02/03/23 15:03 Pulse Oximetry 100 02/03/23 15:03 Oxygen Delivery Method Room Air 02/03/23 15:03 Course <Aleida Cristobal DO - Last Filed: 02/04/23 07:36> Orders Ordered: Discontinued Medications Sodium Chloride (Normal Saline 0.9%) 1,000 mls @ 1,000 mls/hr IV BOLUS ONE Stop: 02/03/23 16:16 Last Infusion: 02/03/23 16:32 Dose: Infused Documented By: Admin: 02/03/23 15:30 Dose: 1,000 mls/hr Documented By: OW Ondansetron HCl (Ondansetron 4 Mg/2 Ml Inj) 4 mg IV NOW ONE Stop: 02/03/23 15:56 Last Admin: 02/03/23 15:56 Dose: 4 mg Documented By: EBEN Phenobarbital (Phenobarbital 65 Mg/Ml Vial) 260 mg IV NOW ONE Stop: 02/03/23 15:19 Last Admin: 02/03/23 15:33 Dose: 260 mg Documented By: EBEN Phenobarbital (Phenobarbital 65 Mg/Ml Vial) 130 mg IV NOW ONE Stop: 02/03/23 17:23 Last Admin: 02/03/23 17:27 Dose: 130 mg Documented By: EBEN Phenobarbital (Phenobarbital 65 Mg/Ml Vial) 130 mg IV NOW ONE Stop: 02/03/23 18:56 Last Admin: 02/03/23 19:03 Dose: 130 mg Documented By: EBEN Phenobarbital (Phenobarbital 65 Mg/Ml Vial) 130 mg IV NOW ONE Stop: 02/03/23 20:35 Last Admin: 02/03/23 20:47 Dose: 130 mg Documented By: BROOKLYN Vital Signs Vital signs: Vital Signs - 8 hr 02/03/23 15:03 02/03/23 15:30 02/03/23 16:00 Temperature 98.4 F Pulse Rate 120 H 110 H 103 H Respiratory Rate 26 H 26 H 20 Blood Pressure 173/82 H 133/102 H 144/95 H Pulse Oximetry 100 98 95 Oxygen Delivery Method Room Air Room Air Room Air Oxygen Flow Rate 02/03/23 16:25 02/03/23 16:30 02/03/23 17:06 Temperature 97.8 F Pulse Rate 104 H 103 H Respiratory Rate 12 14 14 Blood Pressure 131/88 126/79 Pulse Oximetry 86 L 98 99 Oxygen Delivery Method Room Air Nasal Cannula Room Air Oxygen Flow Rate 2 02/03/23 17:31 02/03/23 17:55 02/03/23 19:00 Temperature Pulse Rate 120 H 119 H 118 H Respiratory Rate 22 12 18 Blood Pressure 148/98 H 147/92 H 130/88 Pulse Oximetry 97 95 94 Oxygen Delivery Method Room Air Room Air Room Air Oxygen Flow Rate 02/03/23 19:30 02/03/23 19:30 02/03/23 19:39 Temperature Pulse Rate 112 H 127 H Respiratory Rate 16 18 Blood Pressure 130/79 Pulse Oximetry 94 96 Oxygen Delivery Method Oxygen Flow Rate 02/03/23 19:39 02/03/23 20:00 02/03/23 20:00 Temperature Pulse Rate 120 H Respiratory Rate 16 Blood Pressure 150/89 H 141/91 H Pulse Oximetry 96 Oxygen Delivery Method Oxygen Flow Rate 02/03/23 20:30 02/03/23 20:30 Temperature Pulse Rate 116 H Respiratory Rate 17 Blood Pressure 135/83 Pulse Oximetry 96 Oxygen Delivery Method Oxygen Flow Rate <Laurence Sumner MD - Last Filed: 02/03/23 21:50> Orders Ordered: Discontinued Medications Sodium Chloride (Normal Saline 0.9%) 1,000 mls @ 1,000 mls/hr IV BOLUS ONE Stop: 02/03/23 16:16 Last Infusion: 02/03/23 16:32 Dose: Infused Documented By: Admin: 02/03/23 15:30 Dose: 1,000 mls/hr Documented By: EBEN Ondansetron HCl (Ondansetron 4 Mg/2 Ml Inj) 4 mg IV NOW ONE Stop: 02/03/23 15:56 Last Admin: 02/03/23 15:56 Dose: 4 mg Documented By: EBEN Phenobarbital (Phenobarbital 65 Mg/Ml Vial) 260 mg IV NOW ONE Stop: 02/03/23 15:19 Last Admin: 02/03/23 15:33 Dose: 260 mg Documented By: OW Phenobarbital (Phenobarbital 65 Mg/Ml Vial) 130 mg IV NOW ONE Stop: 02/03/23 17:23 Last Admin: 02/03/23 17:27 Dose: 130 mg Documented By: OW Phenobarbital (Phenobarbital 65 Mg/Ml Vial) 130 mg IV NOW ONE Stop: 02/03/23 18:56 Last Admin: 02/03/23 19:03 Dose: 130 mg Documented By: OW Phenobarbital (Phenobarbital 65 Mg/Ml Vial) 130 mg IV NOW ONE Stop: 02/03/23 20:35 Last Admin: 02/03/23 20:47 Dose: 130 mg Documented By: BROOK[place]N Vital Signs Vital signs: Vital Signs - 8 hr 02/03/23 15:03 02/03/23 15:30 02/03/23 16:00 Temperature 98.4 F Pulse Rate 120 H 110 H 103 H Respiratory Rate 26 H 26 H 20 Blood Pressure 173/82 H 133/102 H 144/95 H Pulse Oximetry 100 98 95 Oxygen Delivery Method Room Air Room Air Room Air Oxygen Flow Rate 02/03/23 16:25 02/03/23 16:30 02/03/23 17:06 Temperature 97.8 F Pulse Rate 104 H 103 H Respiratory Rate 12 14 14 Blood Pressure 131/88 126/79 Pulse Oximetry 86 L 98 99 Oxygen Delivery Method Room Air Nasal Cannula Room Air Oxygen Flow Rate 2 02/03/23 17:31 02/03/23 17:55 02/03/23 19:00 Temperature Pulse Rate 120 H 119 H 118 H Respiratory Rate 22 12 18 Blood Pressure 148/98 H 147/92 H 130/88 Pulse Oximetry 97 95 94 Oxygen Delivery Method Room Air Room Air Room Air Oxygen Flow Rate 02/03/23 19:30 02/03/23 19:30 02/03/23 19:39 Temperature Pulse Rate 112 H 127 H Respiratory Rate 16 18 Blood Pressure 130/79 Pulse Oximetry 94 96 Oxygen Delivery Method Oxygen Flow Rate 02/03/23 19:39 02/03/23 20:00 02/03/23 20:00 Temperature Pulse Rate 120 H Respiratory Rate 16 Blood Pressure 150/89 H 141/91 H Pulse Oximetry 96 Oxygen Delivery Method Oxygen Flow Rate 02/03/23 20:30 02/03/23 20:30 Temperature Pulse Rate 116 H Respiratory Rate 17 Blood Pressure 135/83 Pulse Oximetry 96 Oxygen Delivery Method Oxygen Flow Rate Medical Decision Making <Aleida Mitchelljavid, DO - Last Filed: 02/04/23 07:36> Lab Data 02/03/23 15:30 02/03/23 15:30 Labs: Lab Results 02/03/23 02/03/23 Range/Units 15:30 15:57 WBC 5.3 (4.5-11.0) X10^3/uL RBC 4.91 (4.5-5.9) X10^6/uL Hgb 15.2 (13.5-17.5) g/dL Hct 44.7 (41-53) % MCV 91.0 (80-100) fL MCH 30.9 (26-34) PG MCHC 34.0 (30-36) % RDW 14.2 (11.6-14.8) % Plt Count 214 (150-400) X10^3/uL Neut % (Auto) 40.7 L (50-75) % Lymph % (Auto) 53.1 H (25-40) % [place] % (Auto) 4.6 (3-14) % Eos % (Auto) 0.5 L (2-4) % Baso % (Auto) 1.1 (0-2) % Neut # (Auto) 2200 (9614-2143) /uL Lymph # (Auto) 2800 (7329-6215) /uL [place] # (Auto) 200 (0-900) /uL Eos # (Auto) 0 (0-450) /uL Baso # (Auto) 100 (0-100) /uL PT 10.7 (9.4-12.5) SECONDS INR 0.9 (0.9-1.3) APTT 31 (25.1-36.5) SECONDS Sodium 140 (137-145) mmol/L Potassium 3.8 (3.4-5.1) mmol/L Chloride 102 (98-107) mmol/L Carbon Dioxide 23 (22-32) mmol/L BUN 11 (9-20) mg/dL Creatinine 0.64 L (0.66-1.25) mg/dL Estimated GFR > 60 (>60) mL/min BUN/Creatinine Ratio 17.2 (6-22) Glucose 100 (70-100) mg/dL Calcium 8.8 (8.4-10.2) mg/dL Total Bilirubin 1.5 H (0.2-1.3) mg/dL AST 57 (17-59) IU/L ALT 37 (<50) IU/L Alkaline Phosphatase 75 (38-126) U/L Total Protein 8.1 (6.3-8.2) g/dL Albumin 4.6 (3.5-5.0) g/dL Globulin 3.5 (1.7-4.1) g/dL Albumin/Globulin Ratio 1.3 (1.0-2.8) Lipase 160 (23-300) U/L U Opiates 300ng/mL cut Negative (Negative) Ur Oxycodone Screen Negative (Negative) Urine Methadone Screen Negative (Negative) Ur Barbiturates Screen Negative (Negative) U Tricyclic Antidepress Negative (Negative) Ur Phencyclidine Scrn Negative (Negative) Ur Amphetamines Screen Negative (Negative) U Methamphetamines Scrn Negative (Negative) Ur MDMA Scrn (Ecstasy) Negative (Negative) U Benzodiazepines Scrn Negative (Negative) Urine Cocaine Screen Negative (Negative) U Marijuana (THC) Screen Negative (Negative) Urine pH Normal (Normal) Urine Specific Vinson Normal (Normal) Ethyl Alcohol 329 H ( - 10) mg/dL Ur Creatinine Normal (Normal) MDM Narrative Medical decision making narrative: 32-year-old male presents with complaint of alcohol withdrawal and request for detox. States his last drink was last night. He was here last night requesting detox but left prior to placement against medical advice. Denies any other current ingestions. He is tachycardic and hypertensive on examination. No hypoxia afebrile. Patient was seen briefly by myself last night was not tender on examination at that time but does have some tenderness in his right upper quadrant today. Labs and abdominal ultrasound was ordered. Labs patient's CBC shows a normal white count, hemoglobin and platelets, elevated lymphocytes, low neutrophils. Coags are negative, electrolytes are normal normal creatinine, patient's bilirubin is elevated today at 1.5 but AST ALT and lipase are all appropriate. ETOH is 392. Ultrasound UDS is negative. Patient received fluids and phenobarbital on recheck is feeling improved. Patient signed out to Dr. Sumner is talking to [facility]. 815pm phone call to [employer]. They are just receiving paperwork. We will call back. Patient has been given another dose of 130 mg of phenobarbital after complaining of feeling increasing anxiety, tremor and heart rate beginning to increase. He has tolerated this nicely and at this point is doing well 950pm patient has been accepted to [facility]. He will be transported via taxi. He is safe for discharge to the detox facility at this time <Laurence Sumner MD - Last Filed: 02/03/23 21:50> Lab Data Labs: Lab Results 02/03/23 02/03/23 Range/Units 15:30 15:57 WBC 5.3 (4.5-11.0) X10^3/uL RBC 4.91 (4.5-5.9) X10^6/uL Hgb 15.2 (13.5-17.5) g/dL Hct 44.7 (41-53) % MCV 91.0 (80-100) fL MCH 30.9 (26-34) PG MCHC 34.0 (30-36) % RDW 14.2 (11.6-14.8) % Plt Count 214 (150-400) X10^3/uL Neut % (Auto) 40.7 L (50-75) % Lymph % (Auto) 53.1 H (25-40) % [place] % (Auto) 4.6 (3-14) % Eos % (Auto) 0.5 L (2-4) % Baso % (Auto) 1.1 (0-2) % Neut # (Auto) 2200 (0614-1950) /uL Lymph # (Auto) 2800 (5662-7288) /uL [place] # (Auto) 200 (0-900) /uL Eos # (Auto) 0 (0-450) /uL Baso # (Auto) 100 (0-100) /uL PT 10.7 (9.4-12.5) SECONDS INR 0.9 (0.9-1.3) APTT 31 (25.1-36.5) SECONDS Sodium 140 (137-145) mmol/L Potassium 3.8 (3.4-5.1) mmol/L Chloride 102 (98-107) mmol/L Carbon Dioxide 23 (22-32) mmol/L BUN 11 (9-20) mg/dL Creatinine 0.64 L (0.66-1.25) mg/dL Estimated GFR > 60 (>60) mL/min BUN/Creatinine Ratio 17.2 (6-22) Glucose 100 (70-100) mg/dL Calcium 8.8 (8.4-10.2) mg/dL Total Bilirubin 1.5 H (0.2-1.3) mg/dL AST 57 (17-59) IU/L ALT 37 (<50) IU/L Alkaline Phosphatase 75 (38-126) U/L Total Protein 8.1 (6.3-8.2) g/dL Albumin 4.6 (3.5-5.0) g/dL Globulin 3.5 (1.7-4.1) g/dL Albumin/Globulin Ratio 1.3 (1.0-2.8) Lipase 160 (23-300) U/L U Opiates 300ng/mL cut Negative (Negative) Ur Oxycodone Screen Negative (Negative) Urine Methadone Screen Negative (Negative) Ur Barbiturates Screen Negative (Negative) U Tricyclic Antidepress Negative (Negative) Ur Phencyclidine Scrn Negative (Negative) Ur Amphetamines Screen Negative (Negative) U Methamphetamines Scrn Negative (Negative) Ur MDMA Scrn (Ecstasy) Negative (Negative) U Benzodiazepines Scrn Negative (Negative) Urine Cocaine Screen Negative (Negative) U Marijuana (THC) Screen Negative (Negative) Urine pH Normal (Normal) Urine Specific Vinson Normal (Normal) Ethyl Alcohol 329 H ( - 10) mg/dL Ur Creatinine Normal (Normal) [facility] Narrative Medical decision making narrative: 32-year-old male presents with complaint of alcohol withdrawal and request for detox. States his last drink was last night. He was here last night requesting detox but left prior to placement against medical advice. Denies any other current ingestions. He is tachycardic and hypertensive on examination. No hypoxia afebrile. Patient was seen briefly by myself last night was not tender on examination at that time but does have some tenderness in his right upper quadrant today. Labs and abdominal ultrasound was ordered. Labs patient's CBC shows a normal white count, hemoglobin and platelets, elevated lymphocytes, low neutrophils. Coags are negative, electrolytes are normal normal creatinine, patient's bilirubin is elevated today at 1.5 but AST ALT and lipase are all appropriate. ETOH is 392. Ultrasound UDS is negative. Patient received fluids and phenobarbital on recheck 815pm phone call to [facility]. They are just receiving paperwork. We will call back. Patient has been given another dose of 130 mg of phenobarbital after complaining of feeling increasing anxiety, tremor and heart rate beginning to increase. He has tolerated this nicely and at this point is doing well 950pm patient has been accepted to [facility]. He will be transported via taxi. He is safe for discharge to the detox facility at this time Discharge Plan Departure Patient Disposition: Home Clinical Impression: Alcohol abuse Alcohol withdrawal Qualifiers: Complication of substance-induced condition: with perceptual disturbance Q ualified Code(s): F10.932 - Alcohol use, unspecified with withdrawal with perceptual disturbance Instructions: DI for Alcohol Use Disorder Activity Restrictions/Additional Instructions: I am glad that you have decided to go to detox. The taxi will take you to [facility] I wish you the best in your recovery Prescriptions: No Action dextroamphetamine-amphetamine 20 mg capsule,extended release 24hr See Rx Instructions .ROUTE .COMPLEX Qty: 90 0RF Rx Instructions: 40 mg (2 caps) PO QAM and 20 mg (1 cap) PO Q Noon dextroamphetamine-amphetamine 20 mg capsule,extended release 24hr See Rx Instructions .ROUTE .COMPLEX Qty: 90 0RF Rx Instructions: 40 mg (2 caps) PO QAM and 20 mg (1 cap) PO Q Noon; dextroamphetamine-amphetamine 20 mg capsule,extended release 24hr See Rx Instructions .ROUTE .COMPLEX Qty: 90 0RF Rx Instructions: 40 mg (2 tabs) PO QAM and 20 mg (1 tab) PO QNoon; acetaminophen [Tylenol Extra Strength] 500 mg tablet 1,000 mg PO Q6H PRN Excedrin Extra Strength 250-250-65 mg tablet 1 tab PO Q4-6H PRN Referrals: Miscellaneous,Doctor, MD [Primary Care Provider] - Stand Alone Forms: Patient Portal/API
--- NOTE | 2023-02-03 15:18 | DI.US.S_ITS ---
PROCEDURE: US ABDOMEN LIMITED INDICATIONS: RUQ pain, etoh abuse TECHNIQUE: Real-time focused scanning was performed of the abdomen, with image documentation. COMPARISON: None. FINDINGS: The liver demonstrates enlarged size. The liver demonstrates generalized mildly to moderately increased echogenicity. This decreases ultrasound sensitivity for detection of hepatic masses. The main portal vein demonstrates normal size and demonstrates normal appearing, hepatopetal flow. No findings of gallstones or sludge are seen. The gallbladder wall is not thickened, measuring 3 mm or less. No specific pericholecystic fluid is seen. The sonographic Aragon sign is negative. There is no biliary dilatation, the common bile duct measures 4 mm. No significant pancreatic abnormality is seen on these images. IMPRESSION: The liver demonstrates increased echogenicity. This finding is nonspecific, yet it is most commonly attributed to fatty infiltration. However, differential diagnosis includes cirrhosis and fibrosis in this patient. Dictated by: Mert Wright M.D. on 02/03/2023 at 16:15 Approved by: Mert Wright M.D. on 02/03/2023 at 16:17
[2023-02-03] MEDS: SODIUM CHLORIDE 0.9% 1,000 ML 1000 ML IV (15:30)
[2023-02-03] MEDS: PHENobarbital 65 MG/ML VIAL 260 MG IV (15:33)
[2023-02-03 15:40] LABS: Add Manual Diff / Slide Review NO; Basophils Absolute Auto 100 /uL (0-100); Basophils Percent Auto 1.1 % (0-2); Eosinophils Absolute Auto 0 /uL (0-450); Eosinophils Percent Auto 0.5 % (2-4); Hematocrit 44.7 % (41-53); Hemoglobin 15.2 g/dL (13.5-17.5); Lymphocytes Absolute Auto 2800 /uL (1100-4500); Lymphocytes Percent Auto 53.1 % (25-40); Mean Corpuscular Hemoglobin 30.9 PG (26-34); Monocytes Absolute Auto 200 /uL (0-900); Monocytes Percent Auto 4.6 % (3-14); Neutrophils Absolute Auto 2200 /uL (1500-7000); Neutrophils Percent Auto 40.7 % (50-75); Platelet Count 214 X10^3/uL (150-400); Red Blood Cell Count 4.91 X10^6/uL (4.5-5.9); Red Cell Distribution Width 14.2 % (11.6-14.8); White Blood Cell Count 5.3 X10^3/uL (4.5-11.0)
[2023-02-03 15:46] LABS: INR 0.9 (0.9-1.3); Prothrombin Time 10.7 SECONDS (9.4-12.5)
[2023-02-03 15:49] LABS: PTT Partial Thromboplastin Tim 31 SECONDS (25.1-36.5)
[2023-02-03] MEDS: ONDANSETRON 4 MG/2 ML INJ IV (15:56)
[2023-02-03 16:02] LABS: Alanine Aminotransferase 37 IU/L (<50); Albumin 4.6 g/dL (3.5-5.0); Albumin Globulin Ratio 1.3 (1.0-2.8); Alkaline Phosphatase 75 U/L (38-126); Aspartate Aminotransferase 57 IU/L (17-59); BUN Creatinine Ratio 17.2 (6-22); Bilirubin Total 1.5 mg/dL (0.2-1.3); Blood Urea Nitrogen 11 mg/dL (9-20); Calcium 8.8 mg/dL (8.4-10.2); Carbon Dioxide 23 mmol/L (22-32); Chloride 102 mmol/L (98-107); Estimated Glomerular Filt Rate > 60 mL/min (>60); Globulin 3.5 g/dL (1.7-4.1); Glucose 100 mg/dL (70-100); HEMOLYSIS < 15 (0-50); Lipase 160 U/L (23-300); Potassium 3.8 mmol/L (3.4-5.1); Sodium 140 mmol/L (137-145); Total Protein 8.1 g/dL (6.3-8.2)
[2023-02-03 16:09] LABS: Ethanol (ETOH) 329 mg/dL
--- NOTE | 2023-02-03 16:11 | PC.NURSE ---
1535: Pt was able to stand at bedside without assist and voided into a urinal. Total output: 400cc. Urine is dark yellow and clear.
--- NOTE | 2023-02-03 16:14 | PC.NURSE ---
1600: Pt is now able to lay still in bed and is no longer grabbing and squeezing the side rails. Pt is no longer trying to get out of bed and has stopped shaking his legs like he did upon arrival. Pt has slowed his RR from 33 to 18 and reports that the tingling in his hands have gone away. Pt appears slightly lethargic but is able to speak to RN in full sentences. his CIWA score has gone from 13 to 5 since receiving phenobarbital. Pt states, that he feels his alcohol withdrawal symptoms returning. This RN spoke to pt about the specific symptoms he feels and then this RN gave education to the pt that he presents with an improvement in symptoms and that it is unsafe to give more medications at this time due to his presentation. This RN reassures that she is continually monitoring and will treat patient properly if his condition changes. This RN continues to monitor. ED MD notified.
[2023-02-03 16:16] LABS: UR Morphine/Opiate cutoff 300 Negative (Negative); Ur Creatinine Normal (Normal); Ur Specific Gravity Normal (Normal); Urine Amphetamines Negative (Negative); Urine Barbiturates Negative (Negative); Urine Benzodiazepines Negative (Negative); Urine Cocaine Negative (Negative); Urine MDMA Negative (Negative); Urine Methadone Negative (Negative); Urine Methamphetamines Negative (Negative); Urine Oxycodone Negative (Negative); Urine Phencyclidine Negative (Negative); Urine Tetrahydrocannabinol Negative (Negative); Urine Tricyclic Antidepressant Negative (Negative); Urine pH Normal (Normal)
--- NOTE | 2023-02-03 16:40 | PC.NURSE ---
1625: Pt reporting to RN that he needs more medication for alcohol withdraw. This RN asks pt to inform her what he is experiencing of feeling. Pt avoids answering the questions and repeatedly states, I don't know it just feels like its coming. I just need something to get me through the next hour. Just knock me out, please just knock me out. This RN provides pt with education on how he needs to be given oxygen via nasal canula due to his SpO2 being 86% of RA and that it would be unsafe to give further medication without evidence of needing more combined with his decreased respiratory rate. This then left the room and continued to monitor pt from nurses station and within 5 min. pt is resting with his eyes closed with unlabored respiration. CIWA 3. This RN will continue to closely monitor.
[2023-02-03] MEDS: PHENobarbital 65 MG/ML VIAL 130 MG IV ×3 (17:27→20:47)
--- NOTE | 2023-02-03 18:04 | PC.NURSE ---
1730: After RN finished giving pt second dose of IV phenobarbital and received a sandwich pt states that he is ready to go home now. When RN question pt about his request for detox pt states, Yeah, yeah, well, I've been to multiple rehabs and I just need to go home and I'll go, I just need to go home now. This RN reminds pt that he is medically cleared and that ED staff is currently looking for placement for him now. Pt responds by saying, yeah, you don't need to do that I'll detox at home. I usually do and it just got to bad this time, but I'm good now. ED MD and ED charge accounts audit clerk notified.
--- NOTE | 2023-02-03 18:08 | PC.NURSE ---
Pt walked to the bathroom with a steady gait.
--- NOTE | 2023-02-03 18:26 | PC.NURSE ---
After speaking with ED cupola charger insulation pt is in agreement to continue seeking detox. Pt is now on the phone doing an intake interview. Pt speaks in full clear sentences.
== END 2023-02-03 21:56 | disposition home or self-care (01) ==
PROVIDERS: Emergency Provider Emergency Medicine
DX: F10.139 Alcohol abuse with withdrawal, unspecified (principal); Y90.8 Blood alcohol level of 240 mg/100 ml or more; R10.11 Right upper quadrant pain; R00.0 Tachycardia, unspecified; I10 Essential (primary) hypertension
CPT/HCPCS: 36415; 76705; 80053; 80305; 80320; 83690; 85025; 85610; 85730; 96361; 96374; 96375; 96376; 99284; 99285; J2405; J2560

== ENCOUNTER 2023-05-19 14:02 | Emergency (ER) | payer OTHER, MEDICAID, SELFPAY ==
[2023-05-19 14:21] VITALS: BP 141/103; PULSE 90; RESP 16; TEMP 36.9; O2SAT 97; BMI 27.3
--- NOTE | 2023-05-19 14:34 | ED_ITS ---
HPI - Dental/Oral General Chief complaint: Dental/Oral Stated complaint: tooth pain Time Seen by Provider: 05/19/23 14:25 Source: patient Mode of arrival: Ambulatory History of Present Illness HPI Narrative: Patient is a 33-year-old male presenting with dental pain. He was seen by a dentist yesterday he was given 14 5 mg tablets of oxycodone, 4 days' worth, and amoxicillin presenting today with increased pain. He says that he only has 2 pain pills left and he has not going to make it. He sees a dentist again in 5 days. He feels like something is swollen in his tooth. He is unable to sit still during exam. Patient reports that he has gabapentin at home but he has not taking it. Related Data Home Medications Medication Instructions Recorded Confirmed acetaminophen 500 mg tablet 1,000 mg PO Q6H PRN 07/26/18 03/06/23 (Tylenol Extra Strength) [id number]-[id number]-[id number] 250 1 tab PO Q4-6H PRN 07/26/18 03/06/23 mg-250 mg-65 mg tablet (Excedrin Extra Strength) bupropion HCl 300 mg 24 hr tablet, 300 mg PO DAILY 03/06/23 03/06/23 extended release hydroxyzine pamoate 50 mg capsule 50 mg PO 3XD 03/06/23 03/06/23 Previous Rx's Medication Instructions Recorded dextroamphetamine-amphetamine ER See Rx Instructions .Route 05/30/22 20 mg 24hr capsule,extend release .COMPLEX #90 caps dextroamphetamine-amphetamine ER See Rx Instructions .Route 05/30/22 20 mg 24hr capsule,extend release .COMPLEX #90 caps dextroamphetamine-amphetamine ER See Rx Instructions .Route 09/18/22 20 mg 24hr capsule,extend release .COMPLEX #90 caps lidocaine 5 % topical patch 1 patch topical DAILY #15 ea 03/06/23 Allergies Allergy/AdvReac Type Severity Reaction Status Date / Time No Known Drug Allergies Allergy Verified 05/19/23 14:21 Patient History Medical History (Updated 05/19/23 @ 14:41 by Rebecca Garcia DO) History of pancreatitis Anxiety Tachycardia Cocaine abuse Alcohol abuse Alcoholism Social History Smoking Status: Current some day smoker Tobacco: How many years used: 10 quit status: not considering quitting second hand exposure: No alcohol intake: current substance use type: does not use Smoking Status: Current some day smoker alcohol intake frequency: 3 or more drinks per day Alcohol type: beer, wine and hard liquor Substance Use Type: crack/cocaine Exam Initial Vital Signs Initial Vital Signs: Vital Signs Temperature 98.4 F 05/19/23 14:21 Pulse Rate 90 05/19/23 14:21 Respiratory Rate 16 05/19/23 14:21 Blood Pressure 141/103 H 05/19/23 14:21 Pulse Oximetry 97 05/19/23 14:21 Oxygen Delivery Method Room Air 05/19/23 14:21 GENERAL: Jittery unable to sit still FACE: No facial swelling no trismus no erythema CARDIOVASCULAR: peripheral pulses in tact, cap refill <2 sec RESPIRATORY: No respiratory distress, speaks in full sentences without difficulty EXTREMITIES: Normal range of motion, no clubbing or edema. Neurovascularly intact NEUROLOGICAL: Cranial nerves II through XII grossly intact. Normal gait and speech. SKIN: Warm, dry, no petechiae, no rashes or lesions. HENMT Adult Head Mouth w/Numbe Teeth: 2 1. Multiple dental caries and fractures no obvious abscess Procedures Nerve Block Nerve Block 1: Local Anesthetic: bupivacaine 0.25% and with epi Amount of anesthesia used (mL): 2 Side: right Intraoral Nerve Block: supraperiosteal Procedure Successful: Yes Patient Tolerated Procedure: Well and No complications Course Orders Ordered: Discontinued Medications Bupivacaine HCl/Epinephrine Bitart (Bupivacaine 0.25% W/ Epi (Pf) 10 Ml Vial) 5 ml SUBCUT NOW ONE Stop: 05/19/23 14:34 Last Admin: 05/19/23 14:56 Dose: 5 ml Vital Signs Vital signs: Vital Signs - 8 hr 05/19/23 14:21 Temperature 98.4 F Pulse Rate 90 Respiratory Rate 16 Blood Pressure 141/103 H Pulse Oximetry 97 Oxygen Delivery Method Room Air MDM - Dental/Oral MDM Narrative Medical decision making narrative: Patient 33-year-old male presenting today with ongoing dental pain. He multiple rotted teeth in the same area I do not appreciate any obvious abscess. He received 14 oxycodone yesterday and only has 2 left. I will not be prescribing him any further narcotic medication. However he was given a dental block which he actually did receive significant amount of relief from. He is already on antibiotics. Encouraged him to use gabapentin at night max out Tylenol and ibuprofen. He can talk with primary care provider or dentist for further opiate medications. Discharge Plan Departure Patient Disposition: Home Clinical Impression: Pain, dental Instructions: DI for Dental Pain Activity Restrictions/Additional Instructions: *You have been diagnosed with dental *What to do: At this time unfortunately it is not time for you to have refill prescription of your oxycodone *Continue to take medications as directed Gabapentin 300 mg at night Continue antibiotics as prescribed Ibuprofen 600 mg every 6 hours ziwx-ab-ockyqyda pain Tylenol mg every 6 hours for [id number]-rhdnatcx *Follow up with your primary care provider in 2-3 days or call [phone] *Return to ER if you should have increasing pain, facial swelling redness fever or any new, worsening or concerning symptoms Prescriptions: No Action bupropion HCl 300 mg tablet extended release 24 hr 300 mg PO DAILY hydroxyzine pamoate 50 mg capsule 50 mg PO 3XD lidocaine 5 % adhesive patch,medicated 1 patch topical DAILY Qty: 15 0RF Rx Instructions: leave on most painful area for up to 12 hrs dextroamphetamine-amphetamine 20 mg capsule,extended release 24hr See Rx Instructions .ROUTE .COMPLEX Qty: 90 0RF Rx Instructions: 40 mg (2 caps) PO QAM and 20 mg (1 cap) PO Q Noon dextroamphetamine-amphetamine 20 mg capsule,extended release 24hr See Rx Instructions .ROUTE .COMPLEX Qty: 90 0RF Rx Instructions: 40 mg (2 caps) PO QAM and 20 mg (1 cap) PO Q Noon; dextroamphetamine-amphetamine 20 mg capsule,extended release 24hr See Rx Instructions .ROUTE .COMPLEX Qty: 90 0RF Rx Instructions: 40 mg (2 tabs) PO QAM and 20 mg (1 tab) PO QNoon; acetaminophen [Tylenol Extra Strength] 500 mg tablet 1,000 mg PO Q6H PRN Excedrin Extra Strength 250-250-65 mg tablet 1 tab PO Q4-6H PRN Referrals: Miscellaneous,Doctor, MD [Primary Care Provider] - Stand Alone Forms: Patient Portal/API
[2023-05-19] MEDS: BUPIVACAINE 0.25% W/ EPI (PF) 10 ML VIAL 5 ML SUBCUT (14:56)
--- NOTE | 2023-05-19 15:01 | PC.NURSE ---
See provider note. first contact with pt is discharge. pt discharge in NAD
== END 2023-05-19 15:03 | disposition home or self-care (01) ==
PROVIDERS: Emergency Provider Emergency Medicine
DX: K08.89 Other specified disorders of teeth and supporting structures (principal); Z79.899 Other long term (current) drug therapy
CPT/HCPCS: 64400; 99281; 99283

== ENCOUNTER 2023-06-10 05:28 | Emergency (ER) | payer OTHER, MEDICAID, SELFPAY ==
[2023-06-10 05:33] VITALS: BP 134/92; PULSE 109; RESP 18; TEMP 35.6; O2SAT 100; BMI 24.3
--- NOTE | 2023-06-10 05:34 | DI.RAD.S_ITS ---
PROCEDURE: XR FOOT RT MIN 3V INDICATIONS: injury TECHNIQUE: 3 views of the foot were acquired. COMPARISON: [facility], CR, XR ANKLE RT MIN 3V, 06/10/2023, 5:43. [facility], , FOOT 3V RIGHT, 11/15/2014, 10:33. FINDINGS: Bones: No fractures or dislocations. No suspicious bony lesions. There is a postoperative screws seen at the base of the 5th metatarsal. A moderate plantar calcaneal spur can be seen. Soft tissues: No tibiotalar joint effusion. Achilles tendon appears normal. IMPRESSION: No acute bony abnormality. Postoperative change of the proximal 5th metatarsal. Plantar calcaneal spur noted. Note: No significant discrepancy from the preliminary report. Dictated by: Mert Wright M.D. on 06/10/2023 at 7:58 Approved by: Mert Wright M.D. on 06/10/2023 at 7:59
--- NOTE | 2023-06-10 05:43 | ED.LOWEXIN ---
HPI - Extremity Injury (Lower) General Chief Complaint: Extremity Injury, Lower Stated Complaint: Right foot injury Time Seen by Provider: 06/10/23 05:43 Source: patient Mode of arrival: Wheelchair History of Present Illness HPI Narrative: Patient is a 33-year-old male without significant past medical history presenting today with right ankle pain and swelling. He denies any sort of injury. 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 But he woke up a couple days ago with increased swelling and pain. He is unable to bear weight. He previously had surgery on his foot about 10 years ago. He has been taking ibuprofen without any sort of relief Related Data Home Medications Medication Instructions Recorded Confirmed acetaminophen 500 mg tablet 1,000 mg PO Q6H PRN 07/26/18 03/06/23 (Tylenol Extra Strength) omtwgfm-avtxocknyjykx-lrhjghbo 250 1 tab PO Q4-6H PRN 07/26/18 03/06/23 mg-250 mg-65 mg tablet (Excedrin Extra Strength) bupropion HCl 300 mg 24 hr tablet, 300 mg PO DAILY 03/06/23 03/06/23 extended release hydroxyzine pamoate 50 mg capsule 50 mg PO 3XD 03/06/23 03/06/23 Previous Rx's Medication Instructions Recorded dextroamphetamine-amphetamine ER See Rx Instructions .Route 05/30/22 20 mg 24hr capsule,extend release .COMPLEX #90 caps dextroamphetamine-amphetamine ER See Rx Instructions .Route 05/30/22 20 mg 24hr capsule,extend release .COMPLEX #90 caps dextroamphetamine-amphetamine ER See Rx Instructions .Route 09/18/22 20 mg 24hr capsule,extend release .COMPLEX #90 caps lidocaine 5 % topical patch 1 patch topical DAILY #15 ea 03/06/23 Allergies Allergy/AdvReac Type Severity Reaction Status Date / Time bupropion [From Wellbutrin] Allergy Mild Anxiety Verified 06/10/23 05:43 Patient History Medical History (Updated 06/10/23 @ 06:01 by Rebecca Garcia DO) History of pancreatitis Anxiety Tachycardia Cocaine abuse Alcohol abuse Alcoholism Social History Smoking Status: Current some day smoker Tobacco: How many years used: 10 quit status: not considering quitting second hand exposure: No alcohol intake: current substance use type: does not use Smoking Status: Current some day smoker alcohol intake frequency: 3 or more drinks per day Alcohol type: beer, wine and hard liquor Substance Use Type: crack/cocaine Exam Initial Vital Signs Initial Vital Signs: Vital Signs Temperature 96.0 F L 06/10/23 05:33 Pulse Rate 109 H 06/10/23 05:33 Respiratory Rate 18 06/10/23 05:33 Blood Pressure 134/92 H 06/10/23 05:33 Pulse Oximetry 100 06/10/23 05:33 Oxygen Delivery Method Room Air 06/10/23 05:33 GENERAL: Well-appearing, well-nourished and in no acute distress. CARDIOVASCULAR: peripheral pulses in tact, cap refill <2 sec RESPIRATORY: No respiratory distress, speaks in full sentences without difficulty EXTREMITIES: Normal range of motion, no clubbing or edema. Neurovascularly intact Right lower extremity ankle is swollen on the medial side no significant erythema decreased range of motion Achilles tendon intact soft calf. Distal pedal pulse intact NEUROLOGICAL: Cranial nerves II through XII grossly intact. Normal gait and speech. SKIN: Warm, dry, no petechiae, no rashes or lesions. Course Orders Ordered: ED Orders 06/10/23 05:34 XR foot RT min 3V Stat 06/10/23 05:44 XR ankle RT min 3V Stat Vital Signs Vital signs: Vital Signs - 8 hr 06/10/23 05:33 06/10/23 06:20 Temperature 96.0 F L Pulse Rate 109 H 72 Respiratory Rate 18 15 Blood Pressure 134/92 H 125/78 Pulse Oximetry 100 99 Oxygen Delivery Method Room Air Room Air MDM - Extremity Injury (Lower) Imaging Data Extremity x-ray #1: My Impression: No acute fracture. Previous hardware noted in foot Radiologist's Impression: Right foot no acute traumatic injury is identified postsurgical findings detailed and calcaneal spur Extremity x-ray #2: Radiologist's Impression: No acute traumatic injuries identified postsurgical findings as detailed of in inferior calcaneal spur MDM Narrative Medical decision making narrative: Patient 33-year-old male presenting today with increased ankle pain and swelling. Obviously swollen medially not significantly erythematous. He is extremely tender and jumpy. He is afebrile. He denies any injury over there is report of cocaine abuse and alcohol abuse in chart. He does not remember any sort of injury. It has not significantly erythematous not likely a cellulitis or gout although considered. That this time recommend supportive care with increased elevation ice and crutches. Discharge Plan Departure Patient Disposition: Home Clinical Impression: Right ankle sprain Instructions: DI for Ankle Sprain Activity Restrictions/Additional Instructions: *You have been diagnosed with right ankle sprain *What to do: At this time your x-ray is negative. Possibly that you sprained it at this time recommend elevation ice and crutches. Meds swelling goes down the pain will improve *Continue to take medications as directed Ibuprofen 600 mg every 6 hours if needed for yxnf-le-emvyjyjb pain *Follow up with your primary care provider in 2-3 days or call [phone] *Return to ER if you should have increasing pain redness swelling [or] any new, worsening or concerning symptoms Prescriptions: No Action bupropion HCl 300 mg tablet extended release 24 hr 300 mg PO DAILY hydroxyzine pamoate 50 mg capsule 50 mg PO 3XD lidocaine 5 % adhesive patch,medicated 1 patch topical DAILY Qty: 15 0RF Rx Instructions: leave on most painful area for up to 12 hrs dextroamphetamine-amphetamine 20 mg capsule,extended release 24hr See Rx Instructions .ROUTE .COMPLEX Qty: 90 0RF Rx Instructions: 40 mg (2 caps) PO QAM and 20 mg (1 cap) PO Q Noon dextroamphetamine-amphetamine 20 mg capsule,extended release 24hr See Rx Instructions .ROUTE .COMPLEX Qty: 90 0RF Rx Instructions: 40 mg (2 caps) PO QAM and 20 mg (1 cap) PO Q Noon; dextroamphetamine-amphetamine 20 mg capsule,extended release 24hr See Rx Instructions .ROUTE .COMPLEX Qty: 90 0RF Rx Instructions: 40 mg (2 tabs) PO QAM and 20 mg (1 tab) PO QNoon; acetaminophen [Tylenol Extra Strength] 500 mg tablet 1,000 mg PO Q6H PRN Excedrin Extra Strength 250-250-65 mg tablet 1 tab PO Q4-6H PRN Referrals: Miscellaneous,Doctor, MD [Primary Care Provider] - Stand Alone Forms: Patient Portal/API
--- NOTE | 2023-06-10 05:44 | DI.RAD.S_ITS ---
PROCEDURE: XR ANKLE RT MIN 3V INDICATIONS: injury TECHNIQUE: 3 views of the ankle were acquired. COMPARISON: [facility], CR, XR FOOT RT MIN 3V, 06/10/2023, 5:38. FINDINGS: Bones: No fractures or dislocations. Ankle mortise is normally aligned. No suspicious bony lesions. The talar dome demonstrates no demetra abnormality. Postoperative change of the proximal 5th metatarsal can be seen. A moderate plantar calcaneal spur is seen. Soft tissues: No tibiotalar joint effusion. Achilles tendon appears normal. IMPRESSION: No acute bony abnormality or significant effusion. Additional findings: Moderate plantar calcaneal spur Intact appearing postoperative change of the proximal 5th metatarsal. Note: No significant discrepancy from the preliminary report. Dictated by: Mert Wright M.D. on 06/10/2023 at 8:00 Approved by: Mert Wright M.D. on 06/10/2023 at 8:01
--- NOTE | 2023-06-10 06:17 | PC.NURSE ---
Crutches set at 5ft 8 in, top handle quality control inspector heading. Pt has used before return demonstration done. 4 inch whitney wrap to right ankle.
[2023-06-10 06:20] VITALS: BP 125/78; PULSE 72; RESP 15; O2SAT 99
== END 2023-06-10 06:21 | disposition home or self-care (01) ==
PROVIDERS: Emergency Provider Emergency Medicine
DX: S93.401A Sprain of unspecified ligament of right ankle, initial encounter (principal); X58.XXXA Exposure to other specified factors, initial encounter
CPT/HCPCS: 73610; 73630; 99282

== ENCOUNTER 2023-07-22 09:09 | Emergency (ER) | payer OTHER, MEDICAID, SELFPAY ==
[2023-07-22 09:15] VITALS: BP 152/104; PULSE 105; RESP 18; TEMP 36.8; O2SAT 100; BMI 25.8
--- NOTE | 2023-07-22 09:49 | PC.NURSE ---
Pt came to to the ED today after being sober for several months and recently relapsing. Pt reports that he recently went on a what he refers to as a hernandez and now would like help seeking detox to get sober again. Pt visibly shaking and states that he is feeling very nauseous and vomited this morning. Denies any visual and audio hallucinations. Pt skin cool and dry. He also reports that his girlfriend usually monitors him for ETOH detox but today he felt that he needed more help. Last ETOH drink today at 0600 today.
[2023-07-22 09:50] LABS: Add Manual Diff / Slide Review NO; Basophils Absolute Auto 0 /uL (0-100); Basophils Percent Auto 1.2 % (0-2); Eosinophils Absolute Auto 0 /uL (0-450); Eosinophils Percent Auto 0.2 % (2-4); Hemoglobin 14.3 g/dL (13.5-17.5); Lymphocytes Absolute Auto 1600 /uL (1100-4500); Lymphocytes Percent Auto 39.9 % (25-40); Mean Corpuscular HGB Conc 34.9 % (30-36); Mean Corpuscular Hemoglobin 31.9 PG (26-34); Mean Corpuscular Volume 91.3 fL (80-100); Monocytes Absolute Auto 300 /uL (0-900); Monocytes Percent Auto 8.2 % (3-14); Neutrophils Absolute Auto 2000 /uL (1500-7000); Neutrophils Percent Auto 50.5 % (50-75); Platelet Count 332 X10^3/uL (150-400); Red Blood Cell Count 4.49 X10^6/uL (4.5-5.9); Red Cell Distribution Width 13.7 % (11.6-14.8)
--- NOTE | 2023-07-22 09:53 | ED.ALCOHOL ---
HPI - Alcohol General Chief Complaint: Toxicology Problem Stated Complaint: Alcohol withdrawl Time Seen by Provider: 07/22/23 09:42 Source: patient Mode of arrival: Ambulatory History of Present Illness HPI narrative: Patient 33-year-old male history of alcohol abuse presenting today without well withdrawal. He reports that he was sober for about 4 months started drinking almost a gal of wine daily for the last 5 days. He reports he is involved in AA he does not yet have a sponsor. He does not want detox he thinks he can do it at home. He would like some Ativan. He is done drinking he does not want his kid seeing him this way. Related Data Home Medications Medication Instructions Recorded Confirmed acetaminophen 500 mg tablet 1,000 mg PO Q6H PRN 07/26/18 03/06/23 (Tylenol Extra Strength) [id number] 250 1 tab PO Q4-6H PRN 07/26/18 03/06/23 mg-250 mg-65 mg tablet (Excedrin Extra Strength) bupropion HCl 300 mg 24 hr tablet, 300 mg PO DAILY 03/06/23 03/06/23 extended release hydroxyzine pamoate 50 mg capsule 50 mg PO 3XD 03/06/23 03/06/23 Previous Rx's Medication Instructions Recorded dextroamphetamine-amphetamine ER See Rx Instructions .Route 05/30/22 20 mg 24hr capsule,extend release .COMPLEX #90 caps dextroamphetamine-amphetamine ER See Rx Instructions .Route 05/30/22 20 mg 24hr capsule,extend release .COMPLEX #90 caps dextroamphetamine-amphetamine ER See Rx Instructions .Route 09/18/22 20 mg 24hr capsule,extend release .COMPLEX #90 caps lidocaine 5 % topical patch 1 patch topical DAILY #15 ea 03/06/23 lorazepam 1 mg tablet 1 mg PO TID #6 tabs 07/22/23 Allergies Allergy/AdvReac Type Severity Reaction Status Date / Time bupropion [From Wellbutrin] Allergy Mild Anxiety Verified 06/10/23 05:43 Patient History Medical History (Updated 07/22/23 @ 12:15 by Rebecca Garcia DO) History of pancreatitis Anxiety Tachycardia Cocaine abuse Alcohol abuse Alcoholism Social History Smoking Status: Current some day smoker Tobacco: How many years used: 10 quit status: not considering quitting second hand exposure: No alcohol intake: current substance use type: does not use Smoking Status: Current some day smoker alcohol intake frequency: 3 or more drinks per day Alcohol type: beer, wine and hard liquor Substance Use Type: crack/cocaine Exam Initial Vital Signs Initial Vital Signs: Vital Signs Temperature 98.3 F 07/22/23 09:15 Pulse Rate 105 H 07/22/23 09:15 Respiratory Rate 18 07/22/23 09:15 Blood Pressure 152/104 H 07/22/23 09:15 Pulse Oximetry 100 07/22/23 09:15 Oxygen Delivery Method Room Air 07/22/23 09:15 GENERAL: Alert 33-year-old male clears and in no acute distress. HEENT: Head atraumatic,EOMI, pupils reactive, face symmetric, moist mucous membranes CARDIOVASCULAR: Regular rate and rhythm without murmurs, rubs or gallops. RESPIRATORY: Breath sounds equal bilaterally, no wheezes rales or rhonchi. ABDOMEN: Soft, nontender. Normoactive bowel sounds all 4 quadrants. No guarding or rebound. EXTREMITIES: Normal range of motion, no clubbing or edema. Neurovascularly intact NEUROLOGICAL: Alert and oriented x4.Normal gait and speech. No tremor SKIN: Warm, dry, no laceration, no petechiae, no rashes or lesions. Course Orders Ordered: ED Orders 07/22/23 09:37 Complete Blood Count AUTO DIFF Stat Comprehensive Metabolic Panel Stat Ethanol (ETOH) Stat Lipase Stat 07/22/23 09:42 EKG-12 Lead Stat 07/22/23 10:52 Urinalysis and Microscopic Stat Urine Drug Screen, Rapid Stat Discontinued Medications Sodium Chloride (Normal Saline 0.9%) 1,000 mls @ 1,000 mls/hr IV BOLUS ONE Stop: 07/22/23 12:10 Last Infusion: 07/22/23 12:34 Dose: Infused Documented By: Admin: 07/22/23 11:26 Dose: 1,000 mls/hr Documented By: YUNI Lorazepam (Lorazepam 2 Mg/Ml Inj) 2 mg IV NOW ONE Stop: 07/22/23 10:59 Last Admin: 07/22/23 11:08 Dose: 2 mg Documented By: REJI Lorazepam (Lorazepam 2 Mg/Ml Inj) 2 mg IV NOW ONE Stop: 07/22/23 12:21 Last Admin: 07/22/23 12:42 Dose: 2 mg Documented By: YUNI Ondansetron HCl (Ondansetron 4 Mg/2 Ml Inj) 4 mg IV NOW ONE Stop: 07/22/23 11:12 Last Admin: 07/22/23 11:26 Dose: 4 mg Documented By: YUNI Phenobarbital (Phenobarbital 65 Mg/Ml Vial) 130 mg IV NOW ONE Stop: 07/22/23 10:19 Last Admin: 07/22/23 10:25 Dose: 130 mg Documented By: REJI Phenobarbital (Phenobarbital 65 Mg/Ml Vial) 130 mg IV NOW ONE Stop: 07/22/23 12:21 Last Admin: 07/22/23 12:36 Dose: 130 mg Documented By: YUNI Vital Signs Vital signs: Vital Signs - 8 hr 07/22/23 09:15 07/22/23 11:30 07/22/23 12:53 Temperature 98.3 F Pulse Rate 105 H 100 H 116 H Respiratory Rate 18 16 12 Blood Pressure 152/104 H 149/106 H 137/89 Pulse Oximetry 100 98 98 Oxygen Delivery Method Room Air Room Air Room Air MDM - Alcohol Lab Data 07/22/23 09:37 07/22/23 09:37 Labs: Lab Results 07/22/23 07/22/23 07/22/23 Range/Units 09:37 10:52 10:52 WBC 4.0 L (4.5-11.0) X10^3/uL RBC 4.49 L (4.5-5.9) X10^6/uL Hgb 14.3 (13.5-17.5) g/dL Hct 41.0 (41-53) % MCV 91.3 (80-100) fL MCH 31.9 (26-34) PG MCHC 34.9 (30-36) % RDW 13.7 (11.6-14.8) % Plt Count 332 (150-400) X10^3/uL Neut % (Auto) 50.5 (50-75) % Lymph % (Auto) 39.9 (25-40) % Dickens % (Auto) 8.2 (3-14) % Eos % (Auto) 0.2 L (2-4) % Baso % (Auto) 1.2 (0-2) % Neut # (Auto) 2000 (3484-5421) /uL Lymph # (Auto) 1600 (0483-4313) /uL Dickens # (Auto) 300 (0-900) /uL Eos # (Auto) 0 (0-450) /uL Baso # (Auto) 0 (0-100) /uL Sodium 136 L (137-145) mmol/L Potassium 4.2 (3.4-5.1) mmol/L Chloride 102 (98-107) mmol/L Carbon Dioxide 26 (22-32) mmol/L BUN 20 (9-20) mg/dL Creatinine 0.90 (0.66-1.25) mg/dL Estimated GFR > 60 (>60) mL/min BUN/Creatinine Ratio 22.2 H (6-22) Glucose 103 H (70-100) mg/dL Calcium 8.6 (8.4-10.2) mg/dL Total Bilirubin 1.1 (0.2-1.3) mg/dL AST 150 H (17-59) IU/L ALT 167 H (<50) IU/L Alkaline Phosphatase 47 (38-126) U/L Total Protein 8.0 (6.3-8.2) g/dL Albumin 4.6 (3.5-5.0) g/dL Globulin 3.4 (1.7-4.1) g/dL Albumin/Globulin Ratio 1.4 (1.0-2.8) Lipase 63 (23-300) U/L Urine Color Yellow Urine Appearance Clear Urine pH 7.5 Normal (4.5-8.0) Ur Specific [place] 1.015 (1.000-1.035) Urine Protein Negative (Negative) Urine Glucose (UA) Negative (Negative) g/dL Urine Ketones Negative (NEGATIVE) Urine Occult Blood Negative (Negative) Urine Nitrate Negative (Negative) Urine Bilirubin Negative (NEGATIVE) Urine Urobilinogen 1.0 (0.2) E.U./dL Ur Leukocyte Esterase Negative (NEGATIVE) Urine RBC None seen (0-5/HPF) Urine WBC None seen (0-5/HPF) Ur Squamous Epith Cells None seen (0-5/HPF) Urine Bacteria None seen (None) Ur Culture Indicated? Cult not indicated Vol Urine Centrifuged 10ml (spun) U Opiates 300ng/mL cut Negative (Negative) Ur Oxycodone Screen Negative (Negative) Urine Methadone Screen Negative (Negative) Ur Barbiturates Screen Negative (Negative) U Tricyclic Antidepress Negative (Negative) Ur Phencyclidine Scrn Negative (Negative) Ur Amphetamines Screen Negative (Negative) U Methamphetamines Scrn Negative (Negative) Ur MDMA Scrn (Ecstasy) Negative (Negative) U Benzodiazepines Scrn Negative (Negative) Urine Cocaine Screen Negative (Negative) U Marijuana (THC) Screen Negative (Negative) Urine Specific [place] Normal (Normal) Ethyl Alcohol 162 H ( - 10) mg/dL Ur Creatinine Normal (Normal) ECG Data Attestation: I personally reviewed and interpreted this ECG as follows: Interpretation: Normal sinus rhythm rate 93 PA interval 160 QRS [address] changes MDM Narrative Medical decision making narrative: Patient 33-year-old male history of alcohol abuse presenting today with alcohol withdrawal and wanting to stop. He has not interested in detox. He has required multiple doses of phenobarb and Ativan here in the ED. Blood work today does not show any evidence of pancreatitis but does show some mild elevation in liver enzymes AST 150 ALT 167, bilirubin 1.1 lipase is 63. Discussed with patient need for detox what he is quite adamant he does not want to do it. We will give him few tablets of Ativan however discussed with him and his partner that this is likely not enough for him and he would benefit from detox. He reports the all alcohol has been removed from the house as fiancee or girlfriend will be responsible for giving him the Ativan he understands that he can come back at any time. Discharge Plan Departure Patient Disposition: Home Clinical Impression: Alcohol withdrawal Instructions: DI for Delirium Tremens Activity Restrictions/Additional Instructions: *You have been diagnosed with alcohol withdrawal *What to do: At this time I do recommend that you go to detox if you are continuing to having significant symptoms *Continue to take medications as directed Ativan 1 mg 3 times a day for 1 day, 1 mg twice a day for 1 day and 1 mg once a day do not drink while taking *Follow up with your primary care provider in 2-3 days or call [phone] *Return to ER if you should have shaking seizure or any new, worsening or concerning symptoms Prescriptions: New lorazepam 1 mg tablet 1 mg PO TID Qty: 6 0RF Rx Instructions: Day 1 1 tablet 3 times a day, Day 2 1 tablet twice a day, Day 3 1 tablet No Action bupropion HCl 300 mg tablet extended release 24 hr 300 mg PO DAILY hydroxyzine pamoate 50 mg capsule 50 mg PO 3XD lidocaine 5 % adhesive patch,medicated 1 patch topical DAILY Qty: 15 0RF Rx Instructions: leave on most painful area for up to 12 hrs dextroamphetamine-amphetamine 20 mg capsule,extended release 24hr See Rx Instructions .ROUTE .COMPLEX Qty: 90 0RF Rx Instructions: 40 mg (2 caps) PO QAM and 20 mg (1 cap) PO Q Noon dextroamphetamine-amphetamine 20 mg capsule,extended release 24hr See Rx Instructions .ROUTE .COMPLEX Qty: 90 0RF Rx Instructions: 40 mg (2 caps) PO QAM and 20 mg (1 cap) PO Q Noon; dextroamphetamine-amphetamine 20 mg capsule,extended release 24hr See Rx Instructions .ROUTE .COMPLEX Qty: 90 0RF Rx Instructions: 40 mg (2 tabs) PO QAM and 20 mg (1 tab) PO QNoon; acetaminophen [Tylenol Extra Strength] 500 mg tablet 1,000 mg PO Q6H PRN Excedrin Extra Strength 250-250-65 mg tablet 1 tab PO Q4-6H PRN Referrals: Miscellaneous,Doctor, MD [Primary Care Provider] - Stand Alone Forms: Patient Portal/API
[2023-07-22 10:17] LABS: Alanine Aminotransferase 167 IU/L (<50); Albumin 4.6 g/dL (3.5-5.0); Albumin Globulin Ratio 1.4 (1.0-2.8); Alkaline Phosphatase 47 U/L (38-126); Aspartate Aminotransferase 150 IU/L (17-59); BUN Creatinine Ratio 22.2 (6-22); Bilirubin Total 1.1 mg/dL (0.2-1.3); Blood Urea Nitrogen 20 mg/dL (9-20); Calcium 8.6 mg/dL (8.4-10.2); Carbon Dioxide 26 mmol/L (22-32); Chloride 102 mmol/L (98-107); Estimated Glomerular Filt Rate > 60 mL/min (>60); Ethanol (ETOH) 162 mg/dL; Globulin 3.4 g/dL (1.7-4.1); Glucose 103 mg/dL (70-100); Lipase 63 U/L (23-300); Potassium 4.2 mmol/L (3.4-5.1); Sodium 136 mmol/L (137-145)
[2023-07-22 10:20] LABS: HEMOLYSIS 72 (0-50)
[2023-07-22] MEDS: PHENobarbital 65 MG/ML VIAL 130 MG IV ×2 (10:25→12:36)
[2023-07-22 11:04] LABS: Appearance Urine UA CLEAR; Bilirubin Urine UA NEGATIVE (NEGATIVE); Color Urine UA YELLOW; Glucose Urine UA NEGATIVE (Negative); Ketones Urine UA NEGATIVE (NEGATIVE); Leukocyte Esterase Urine UA NEGATIVE (NEGATIVE); Nitrite Urine UA NEGATIVE (Negative); Occult Blood Urine UA NEGATIVE (Negative); Protein Urine UA NEGATIVE (Negative); Specific Gravity Urine UA 1.015 (1.000-1.035); pH Urine UA 7.5 (4.5-8.0)
[2023-07-22 11:06] LABS: UR Morphine/Opiate cutoff 300 Negative (Negative); Ur Creatinine Normal (Normal); Ur Specific Gravity Normal (Normal); Urine Amphetamines Negative (Negative); Urine Barbiturates Negative (Negative); Urine Benzodiazepines Negative (Negative); Urine Cocaine Negative (Negative); Urine MDMA Negative (Negative); Urine Methadone Negative (Negative); Urine Methamphetamines Negative (Negative); Urine Oxycodone Negative (Negative); Urine Phencyclidine Negative (Negative); Urine Tetrahydrocannabinol Negative (Negative); Urine Tricyclic Antidepressant Negative (Negative); Urine pH Normal (Normal)
[2023-07-22] MEDS: LORazepam 2 MG/ML INJ IV ×2 (11:08→12:42)
[2023-07-22] MEDS: SODIUM CHLORIDE 0.9% 1,000 ML 1000 ML IV (11:26)
[2023-07-22] MEDS: ONDANSETRON 4 MG/2 ML INJ IV (11:26)
[2023-07-22 11:30] VITALS: BP 149/106; PULSE 100; RESP 16; O2SAT 98
[2023-07-22 11:41] LABS: Urine Volume 10mL (spun)
[2023-07-22 11:42] LABS: Bacteria Urine None Seen; Culture Indicated Urine Cult Not Indicated; RBC Urine None Seen (0-5/HPF); Squamous Epithelial Cell Urine None Seen (0-5/HPF); WBC Urine None Seen (0-5/HPF)
[2023-07-22 12:53] VITALS: BP 137/89; PULSE 116; RESP 12; O2SAT 98
== END 2023-07-22 13:00 | disposition home or self-care (01) ==
PROVIDERS: Emergency Provider Emergency Medicine
DX: F10.139 Alcohol abuse with withdrawal, unspecified (principal); Y90.6 Blood alcohol level of 120-199 mg/100 ml
CPT/HCPCS: 36415; 80053; 80305; 80320; 81001; 83690; 85025; 93005; 93010; 96361; 96374; 96375; 96376; 99284; J2060; J2405; J2560

== ENCOUNTER 2023-09-12 08:14 | Emergency (ER) | payer OTHER, MEDICAID, SELFPAY ==
[2023-09-12] VITALS (17 sets, daily range): BP systolic 112–139; BP diastolic 73–94; PULSE 81–110; RESP 12–30; TEMP 36.6; O2SAT 94–100; BMI 26.6
--- NOTE | 2023-09-12 08:48 | DI.CT.S_ITS ---
PROCEDURE: CT CHEST ABD PEL W CON INDICATIONS: Fall/trauma TECHNIQUE: After the administration of intravenous contrast, 5 mm thick sections acquired from the lung apices to the symphysis. 2.5 mm thick coronal and sagittal reformats were acquired. Additional 7 mm thick coronal maximum intensity projection (MIP) reformats acquired through the lungs. Optional 10-minute delayed imaging may be performed from the kidneys to the bladder. For radiation dose reduction, the following was used: automated exposure control, adjustment of mA and/or kV according to patient size. COMPARISON: None. FINDINGS: Image quality: Diagnostic. CHEST: Lower Neck: No enlarged lymph nodes. Thyroid: No thyroid nodules which require sonographic evaluation. Axillae: No enlarged lymph nodes. Chest Wall: No subcutaneous gas. Lungs and Pleura: No evidence of pneumonia or edema. 2 mm subpleural nodule within the right middle lobe laterally (image 196). Mediastinum: No mediastinal hematomas. Heart size is normal. No pericardial effusion. Thoracic aorta and pulmonary arteries demonstrate normal size and enhancement. No mediastinal or hilar adenopathy. Esophagus is normal in caliber. No hiatal hernia. ABDOMEN: Liver: No lacerations. Gallbladder: No radiopaque gallstones or wall thickening. Biliary ducts: No biliary dilation. Pancreas: Homogenous enhancement. Spleen: Homogenous enhancement without laceration or hematoma. Adrenal Glands: Symmetric enhancement. Kidneys and Ureters: Symmetric enhancement. No hydronephrosis. No solid mass. No complex renal cystic lesion which requires follow up. Stomach and Bowel: Normal colonic caliber, without significant wall thickening. Peritoneum: No abnormal intraperitoneal fluid. No free air. Ventral Wall: No hernia. Abdominal Nodes: No retroperitoneal or mesenteric adenopathy by size criteria. Vessels: Aorta and inferior vena cava are normal in size. PELVIS: Pelvic Organs: Unremarkable. Bladder: Normal thickness. Pelvic Nodes: No enlarged lymph nodes. Miscellaneous: No inguinal hernias are seen. Bones: Pelvic ring and hip joints appear intact. No displaced rib fractures. IMPRESSION: 1. No acute process. 2. Small right middle lobe pulmonary nodule. Follow-up is recommended below. Fleischner Society criteria for SOLID lung nodule followup. Nodule size (mm)Low-risk patientHigh-risk patient<6 (single or multiple)No routine followup.Optional CT at 12 months. 6-8 (single or multiple)CT at 6-12 months, then optional CT at 18-24 mo.CT at 6-12 months, then CT at 18-24 months. >8 (single)CT, PET-CT, or biopsy at 3 months. Same as for low-risk pts. >8 (multiple)CT at 3-6 months, then optional CT at 18-24 mo.CT at 3-6 months, then CT at 18-24 months. Fleischner Society criteria for SUB-SOLID lung nodule followup. Solitary pure ground-glass nodules<6 mm (ground glass or part solid)No followup needed. 6 mm or larger (ground glass)CT at 6-12 months to confirm persistence, then CT every 2 years until 5 years.6 mm or larger (part solid)CT at 3-6 months to confirm persistence, then annual CT until 5 years if unchanged and solid component remains <6 mm. Multiple sub-solid nodules<6 mmCT at 3-6 months, then CT consider at 2 & 4 years for high risk patients. [address] at 3-6 months. Subsequent management based on most suspicious lesions. Recommendations do not apply to lung cancer screening, patients with immunosuppression, or patients with known primary cancer. Dictated by: Kyree Lu M.D. on 09/12/2023 at 9:13 Approved by: Kyree Lu M.D. on 09/12/2023 at 9:18
[2023-09-12 08:50] LABS: Ur Creatinine Normal (Normal); Ur Specific Gravity Normal (Normal); Urine Amphetamines Negative (Negative); Urine Barbiturates Negative (Negative); Urine Benzodiazepines Negative (Negative); Urine Cocaine Negative (Negative); Urine MDMA Negative (Negative); Urine Methadone Negative (Negative); Urine Methamphetamines Negative (Negative); Urine Opiates Negative (Negative); Urine Oxycodone Negative (Negative); Urine Phencyclidine Negative (Negative); Urine THC Negative (Negative); Urine Tricyclic Antidepressant Negative (Negative); Urine pH Normal (Normal)
--- NOTE | 2023-09-12 08:51 | ED_ITS ---
HPI - Alcohol General Chief Complaint: Toxicology Problem Stated Complaint: alcohol withdrawal Time Seen by Provider: 09/12/23 08:44 Source: patient Mode of arrival: Ambulatory History of Present Illness HPI narrative: Patient here for alcohol withdrawal symptoms. He is trying to drink from alcohol. Has long history of alcohol abuse. Does not recall last detox or inpatient treatment. Last alcohol taken was yesterday. Since then has nausea shakes and tremors.. He did trip and fall and has bruising to left lower quadrant. Denies hitting his head. Has not had any seizures or confusion. It does wish to stop drinking alcohol. Does not recall any stressors that caused him to drink again. He states he has been doing well until recently. Related Data Home Medications Medication Instructions Recorded Confirmed acetaminophen 500 mg tablet 1,000 mg PO Q6H PRN 07/26/18 03/06/23 (Tylenol Extra Strength) yvinite-hjcslibegwtys-ucszazun 250 1 tab PO Q4-6H PRN 07/26/18 03/06/23 mg-250 mg-65 mg tablet (Excedrin Extra Strength) bupropion HCl 300 mg 24 hr tablet, 300 mg PO DAILY 03/06/23 03/06/23 extended release hydroxyzine pamoate 50 mg capsule 50 mg PO 3XD 03/06/23 03/06/23 Previous Rx's Medication Instructions Recorded dextroamphetamine-amphetamine ER See Rx Instructions .Route 05/30/22 20 mg 24hr capsule,extend release .COMPLEX #90 caps dextroamphetamine-amphetamine ER See Rx Instructions .Route 05/30/22 20 mg 24hr capsule,extend release .COMPLEX #90 caps dextroamphetamine-amphetamine ER See Rx Instructions .Route 09/18/22 20 mg 24hr capsule,extend release .COMPLEX #90 caps lidocaine 5 % topical patch 1 patch topical DAILY #15 ea 03/06/23 lorazepam 1 mg tablet 1 mg PO TID #6 tabs 07/22/23 chlordiazepoxide HCl 25 mg capsule 25 mg PO QID #12 caps 09/12/23 Allergies Allergy/AdvReac Type Severity Reaction Status Date / Time bupropion [From Wellbutrin] Allergy Mild Anxiety Verified 09/12/23 08:26 Review of Systems Review of Systems Narrative: GENERAL: negative chills, fatigue, malaise, fever, sweats. HEENT: negative sinus pain, ear pain, sore throat RESPIRATORY: negative dyspnea, cough CARDIOVASCULAR: negative chest pain, palpitations GASTROINTESTINAL: Positive nausea, vomiting, abdominal pain : negative dysuria, frequency, hematuria MUSCULOSKELETAL: negative muscle or bony pain SKIN: negative rash, skin lesions NEUROLOGIC: negative weakness, numbness negative seizure, positive tremor ROS Unobtainable: All systems reviewed & are unremarkable except as noted in HPI and below Patient History Medical History (Updated 09/12/23 @ 12:30 by Higinio Cochran MD) History of pancreatitis Anxiety Tachycardia Cocaine abuse Alcohol abuse Alcoholism Social History Smoking Status: Current some day smoker Tobacco: How many years used: 10 quit status: not considering quitting second hand exposure: No alcohol intake: current substance use type: does not use Smoking Status: Current some day smoker alcohol intake frequency: 3 or more drinks per day Alcohol type: beer, wine and hard liquor Substance Use Type: former substance user and crack/cocaine Exam Narrative Exam Narrative: GENERAL: in no distress, not toxic not dyspneic HEAD: Normocephalic. Atraumatic EYES: Pupils equal round ENT: Mucous membranes moist. NECK: Trachea midline. No midline tenderness or step-off of the cervical thoracic or lumbar spine CARDIOVASCULAR: Regular rate and rhythm RESPIRATORY: Clear to auscultation. Breath sounds equal bilaterally. No wheezes, rales, or rhonchi. GASTROINTESTINAL: Abdomen soft, non-tender however, there is linear ecchymosis to the left lower quadrant which is nontender. No peritoneal signs. Bowel sounds are present. No CVA tenderness. EXTREMITIES: No gross deformities. Nontender bilateral shoulders elbows wrists pelvis hips knees and ankles BACK: No flank tenderness. NEURO: AOx4. Clear speech no facial droop moving all 4 extremities purposely., slight tremors to the hands SKIN: Warm and dry PSYCH: Not anxious, is cooperative Initial Vital Signs Initial Vital Signs: Vital Signs Pulse Rate 93 H 09/12/23 08:19 Pulse Oximetry 96 09/12/23 08:19 Course Orders Ordered: Discontinued Medications Folic Acid (Folic Acid 1 Mg Tablet) 1 mg PO DAILY MANISH Last Admin: 09/12/23 09:02 Dose: 1 mg Documented By: Sodium Chloride (Normal Saline 0.9%) 500 mls @ 1,000 mls/hr IV BOLUS ONE Stop: 09/12/23 09:17 Last Infusion: 09/12/23 09:42 Dose: Infused Documented By: Admin: 09/12/23 09:02 Dose: 1,000 mls/hr Documented By: Sodium Chloride (Normal Saline 0.9%) 1,000 mls @ 1,000 mls/hr IV BOLUS ONE Stop: 09/12/23 12:20 Last Admin: 09/12/23 11:27 Dose: 1,000 mls/hr Documented By: MARY Lorazepam (Lorazepam 2 Mg/Ml Inj) 0 mg IV CIWAPRN PRN; Protocol PRN Reason: Alcohol Withdrawal Last Admin: 09/12/23 10:38 Dose: 1 mg Documented By: Admin: 09/12/23 09:02 Dose: 1 mg Documented By: Lorazepam (Lorazepam 0.5 Mg Tablet) 1 mg PO NOW ONE Stop: 09/12/23 12:29 Last Admin: 09/12/23 12:32 Dose: 1 mg Documented By: MILLA Multivitamins (Multivitamin 1 Tablet) 1 tab PO DAILY [facility] Last Admin: 09/12/23 09:02 Dose: 1 tab Documented By: Nicotine (Nicotine 21 Mg Patch) 21 mg TOP NOW ONE Stop: 09/12/23 09:13 Last Admin: 09/12/23 09:39 Dose: 21 mg Documented By: Ondansetron HCl (Ondansetron 4 Mg/2 Ml Inj) 4 mg IV Q6HR PRN PRN Reason: Nausea And Vomiting Last Admin: 09/12/23 09:02 Dose: 4 mg Documented By: Thiamine HCl (Thiamine 100 Mg Tablet) 100 mg PO DAILY MANISH Stop: 09/15/23 09:01 Last Admin: 09/12/23 09:02 Dose: 100 mg Documented By: Vital Signs Vital signs: Vital Signs - 8 hr 09/12/23 08:19 09/12/23 08:20 09/12/23 08:23 Temperature 98 F Pulse Rate 93 H 92 H 93 H Respiratory Rate 18 Blood Pressure 139/94 H Pulse Oximetry 96 100 100 Oxygen Delivery Method Room Air 09/12/23 08:30 09/12/23 08:30 09/12/23 09:02 Temperature Pulse Rate 89 82 Respiratory Rate 21 Blood Pressure 125/84 Pulse Oximetry 100 100 Oxygen Delivery Method 09/12/23 09:03 09/12/23 09:03 09/12/23 09:30 Temperature Pulse Rate 81 Respiratory Rate Blood Pressure 114/73 117/77 Pulse Oximetry 100 Oxygen Delivery Method 09/12/23 09:30 09/12/23 10:00 09/12/23 10:00 Temperature Pulse Rate 90 94 H Respiratory Rate 16 15 Blood Pressure 112/73 Pulse Oximetry 94 97 Oxygen Delivery Method 09/12/23 10:30 09/12/23 10:30 09/12/23 11:00 Temperature Pulse Rate 88 89 Respiratory Rate 13 12 Blood Pressure 116/78 Pulse Oximetry 98 99 Oxygen Delivery Method 09/12/23 11:29 09/12/23 11:29 09/12/23 11:30 Temperature Pulse Rate 94 H Respiratory Rate 15 Blood Pressure 119/78 122/78 Pulse Oximetry 98 Oxygen Delivery Method 09/12/23 11:30 09/12/23 11:36 Temperature Pulse Rate 90 87 Respiratory Rate 17 16 Blood Pressure Pulse Oximetry 98 96 Oxygen Delivery Method Room Air MDM - Alcohol Lab Data 09/12/23 08:33 09/12/23 08:33 Labs: Lab Results 09/12/23 09/12/23 09/12/23 Range/Units 08:23 08:23 08:33 WBC 4.7 (4.5-11.0) X10^3/uL RBC 4.69 (4.5-5.9) X10^6/uL Hgb 15.1 (13.5-17.5) g/dL Hct 43.2 (41-53) % MCV 92.1 (80-100) fL MCH 32.1 (26-34) PG MCHC 34.9 (30-36) % RDW 13.9 (11.6-14.8) % Plt Count 296 (150-400) X10^3/uL Neut % (Auto) 61.1 (50-75) % Lymph % (Auto) 29.9 (25-40) % [place] % (Auto) 8.0 (3-14) % Eos % (Auto) 0.0 L (2-4) % Baso % (Auto) 1.0 (0-2) % Neut # (Auto) 2900 (7669-7123) /uL Lymph # (Auto) 1400 (2890-2964) /uL [place] # (Auto) 400 (0-900) /uL Eos # (Auto) 0 (0-450) /uL Baso # (Auto) 0 (0-100) /uL Sodium 140 (137-145) mmol/L Potassium 4.6 (3.4-5.1) mmol/L Chloride 102 (98-107) mmol/L Carbon Dioxide 25 (22-32) mmol/L BUN 22 H (9-20) mg/dL Creatinine 0.98 (0.66-1.25) mg/dL Estimated GFR > 60 (>60) mL/min BUN/Creatinine Ratio 22.4 H (6-22) Glucose 112 H (70-100) mg/dL Lactate 2.5 H (0.7-2.1) mmol/L Calcium 8.7 (8.4-10.2) mg/dL Magnesium (1.6-2.3) mg/dL Total Bilirubin 1.0 (0.2-1.3) mg/dL Conjugated Bilirubin 0.0 (0.0-0.3) md/dL Unconjugated Bilirubin 0.5 (0.0-1.1) mg/dL AST 47 (17-59) IU/L ALT 38 (<50) IU/L Alkaline Phosphatase 53 (38-126) U/L Total Protein 7.9 (6.3-8.2) g/dL Albumin 4.7 (3.5-5.0) g/dL Globulin 3.2 (1.7-4.1) g/dL Albumin/Globulin Ratio 1.5 (1.0-2.8) Lipase 142 (23-300) U/L TSH (0.47-4.68) uIU/mL Urine Color Yellow Urine Appearance Clear Urine pH 5.5 Normal (4.5-8.0) Ur Specific [place] >=1.030 H (1.000-1.035) Urine Protein Negative (Negative) Urine Glucose (UA) Negative (Negative) g/dL Urine Ketones Negative (NEGATIVE) Urine Occult Blood Negative (Negative) Urine Nitrate Negative (Negative) Urine Bilirubin Negative (NEGATIVE) Urine Urobilinogen 0.2 (0.2) E.U./dL Ur Leukocyte Esterase Negative (NEGATIVE) Urine RBC None seen (0-5/HPF) Urine WBC None seen (0-5/HPF) Ur Squamous Epith Cells None seen (0-5/HPF) Urine Bacteria None seen (None) Ur Culture Indicated? Cult not indicated Vol Urine Centrifuged 10ml (spun) Salicylates < 1.0 (<20) mg/dL U Opiates 300ng/mL cut Negative (Negative) Ur Oxycodone Screen Negative (Negative) Urine Methadone Screen Negative (Negative) Acetaminophen < 10 (10-30) ug/mL Ur Barbiturates Screen Negative (Negative) U Tricyclic Antidepress Negative (Negative) Ur Phencyclidine Scrn Negative (Negative) Ur Amphetamines Screen Negative (Negative) U Methamphetamines Scrn Negative (Negative) Ur MDMA Scrn (Ecstasy) Negative (Negative) U Benzodiazepines Scrn Negative (Negative) Urine Cocaine Screen Negative (Negative) U Marijuana (THC) Screen Negative (Negative) Urine Specific [place] Normal (Normal) Ethyl Alcohol 220 H ( - 10) mg/dL Ur Creatinine Normal (Normal) 09/12/23 09/12/23 09/12/23 Range/Units 08:48 08:49 10:38 WBC (4.5-11.0) X10^3/uL RBC (4.5-5.9) X10^6/uL Hgb (13.5-17.5) g/dL Hct (41-53) % MCV (80-100) fL MCH (26-34) PG MCHC (30-36) % RDW (11.6-14.8) % Plt Count (150-400) X10^3/uL Neut % (Auto) (50-75) % Lymph % (Auto) (25-40) % [place] % (Auto) (3-14) % Eos % (Auto) (2-4) % Baso % (Auto) (0-2) % Neut # (Auto) (4238-8536) /uL Lymph # (Auto) (5011-4220) /uL [place] # (Auto) (0-900) /uL Eos # (Auto) (0-450) /uL Baso # (Auto) (0-100) /uL Sodium (137-145) mmol/L Potassium (3.4-5.1) mmol/L Chloride (98-107) mmol/L Carbon Dioxide (22-32) mmol/L BUN (9-20) mg/dL Creatinine (0.66-1.25) mg/dL Estimated GFR (>60) mL/min BUN/Creatinine Ratio (6-22) Glucose (70-100) mg/dL Lactate 2.6 H (0.7-2.1) mmol/L Calcium (8.4-10.2) mg/dL Magnesium 1.8 (1.6-2.3) mg/dL Total Bilirubin (0.2-1.3) mg/dL Conjugated Bilirubin (0.0-0.3) md/dL Unconjugated Bilirubin (0.0-1.1) mg/dL AST (17-59) IU/L ALT (<50) IU/L Alkaline Phosphatase (38-126) U/L Total Protein (6.3-8.2) g/dL Albumin (3.5-5.0) g/dL Globulin (1.7-4.1) g/dL Albumin/Globulin Ratio (1.0-2.8) Lipase (23-300) U/L TSH 0.490 (0.47-4.68) uIU/mL Urine Color Urine Appearance Urine pH (4.5-8.0) Ur Specific [place] (1.000-1.035) Urine Protein (Negative) Urine Glucose (UA) (Negative) g/dL Urine Ketones (NEGATIVE) Urine Occult Blood (Negative) Urine Nitrate (Negative) Urine Bilirubin (NEGATIVE) Urine Urobilinogen (0.2) E.U./dL Ur Leukocyte Esterase (NEGATIVE) Urine RBC (0-5/HPF) Urine WBC (0-5/HPF) Ur Squamous Epith Cells (0-5/HPF) Urine Bacteria (None) Ur Culture Indicated? Vol Urine Centrifuged Salicylates (<20) mg/dL U Opiates 300ng/mL cut (Negative) Ur Oxycodone Screen (Negative) Urine Methadone Screen (Negative) Acetaminophen (10-30) ug/mL Ur Barbiturates Screen (Negative) U Tricyclic Antidepress (Negative) Ur Phencyclidine Scrn (Negative) Ur Amphetamines Screen (Negative) U Methamphetamines Scrn (Negative) Ur MDMA Scrn (Ecstasy) (Negative) U Benzodiazepines Scrn (Negative) Urine Cocaine Screen (Negative) U Marijuana (THC) Screen (Negative) Urine Specific [place] (Normal) Ethyl Alcohol ( - 10) mg/dL Ur Creatinine (Normal) Urine Dip Bedside Urine Glucose Negative Bedside Urine Bilirubin - Negative Bedside Urine Ketone - Negative Urine Specific [place] 1.030 Bedside Urine Occult Blood - Negative Bedside Urine pH 5.5 Bedside Urine Protein - Negative Bedside Urine Urobilinogen - Negative Bedside Urine Nitrite - Negative Bedside Urine Leukocytes - Negative Esterase Imaging Data CT chest abdomen pelvis: Radiologist's Impressoin: [address] [address] [address] Scan Report Signed Patient: Dagoberto Frank MR#: [id number] : 1990 Acct:[id number] Age/Sex: 33 / M Date of Service: 09/12/23 Loc: ED Accession Number: [id number] Procedure: CT chest abd pel w con Ordering Provider: Higinio Cochran MD PROCEDURE: CT CHEST ABD PEL W CON INDICATIONS: Fall/trauma TECHNIQUE: After the administration of intravenous contrast, 5 mm thick sections acquired from the lung apices to the symphysis. 2.5 mm thick coronal and sagittal reformats were acquired. Additional 7 mm thick coronal maximum intensity projection (MIP) reformats acquired through the lungs. Optional 10-minute delayed imaging may be performed from the kidneys to the bladder. For radiation dose reduction, the following was used: automated exposure control, adjustment of mA and/or kV according to patient size. COMPARISON: None. FINDINGS: Image quality: Diagnostic. CHEST: Lower Neck: No enlarged lymph nodes. Thyroid: No thyroid nodules which require sonographic evaluation. Axillae: No enlarged lymph nodes. Chest Wall: No subcutaneous gas. Lungs and Pleura: No evidence of pneumonia or edema. 2 mm subpleural nodule within the right middle lobe laterally (image 196). Mediastinum: No mediastinal hematomas. Heart size is normal. No pericardial effusion. Thoracic aorta and pulmonary arteries demonstrate normal size and enhancement. No mediastinal or hilar adenopathy. Esophagus is normal in caliber. No hiatal hernia. ABDOMEN: Liver: No lacerations. Gallbladder: No radiopaque gallstones or wall thickening. Biliary ducts: No biliary dilation. Pancreas: Homogenous enhancement. Spleen: Homogenous enhancement without laceration or hematoma. Adrenal Glands: Symmetric enhancement. Kidneys and Ureters: Symmetric enhancement. No hydronephrosis. No solid mass. No complex renal cystic lesion which requires follow up. Stomach and Bowel: Normal colonic caliber, without significant wall thickening. Peritoneum: No abnormal intraperitoneal fluid. No free air. Ventral Wall: No hernia. Abdominal Nodes: No retroperitoneal or mesenteric adenopathy by size criteria. Vessels: Aorta and inferior vena cava are normal in size. PELVIS: Pelvic Organs: Unremarkable. Bladder: Normal thickness. Pelvic Nodes: No enlarged lymph nodes. Miscellaneous: No inguinal hernias are seen. Bones: Pelvic ring and hip joints appear intact. No displaced rib fractures. IMPRESSION: 1. No acute process. 2. Small right middle lobe pulmonary nodule. Follow-up is recommended below. Fleischner Society criteria for SOLID lung nodule followup. Nodule size (mm)Low-risk patientHigh-risk patient<6 (single or multiple)No routine followup.Optional CT at 12 months. 6-8 (single or multiple)CT at 6-12 months, then optional CT at 18-24 mo.CT at 6-12 months, then CT at 18-24 months. >8 (single)CT, PET-CT, or biopsy at 3 months. Same as for low-risk pts. >8 (multiple)CT at 3-6 months, then optional CT at 18-24 mo.CT at 3-6 months, then CT at 18-24 months. Fleischner Society criteria for SUB-SOLID lung nodule followup. Solitary pure ground-glass nodules<6 mm (ground glass or part solid)No followup needed. 6 mm or larger (ground glass)CT at 6-12 months to confirm persistence, then CT every 2 years until 5 years.6 mm or larger (part solid)CT at 3-6 months to confirm persistence, then annual CT until 5 years if unchanged and solid component remains <6 mm. Multiple sub-solid nodules<6 mmCT at 3-6 months, then CT consider at 2 & 4 years for high risk patients. [address] at 3-6 months. Subsequent management based on most suspicious lesions. Recommendations do not apply to lung cancer screening, patients with immunosuppression, or patients with known primary cancer. Dictated by: Kyree Lu M.D. on 09/12/2023 at 9:13 Approved by: Kyree Lu M.D. on 09/12/2023 at 9:18 MDM Narrative Medical decision making narrative: Patient here for alcohol withdrawal symptoms. He is trying to drink from alcohol. Has long history of alcohol abuse. Does not recall last detox or inpatient treatment. Last alcohol taken was yesterday. Since then has nausea shakes and tremors.. He did trip and fall and has bruising to left lower quadrant. Denies hitting his head. Has not had any seizures or confusion. It does wish to stop drinking alcohol. Does not recall any stressors that caused him to drink again. He states he has been doing well until recently. After history and exam CBC CMP drug screen alcohol urinalysis TSH social work consult CT chest abdomen pelvis [facility] protocol normal saline Zofran [facility] Medical records reviewed: Seen in July for alcohol abuse Differential considered: Includes but not limited to alcohol withdrawal alcohol abuse dehydration Lab Test results independently reviewed as above. Pertinent findings: WBC 4.7 hemoglobin 15.1 sodium 140 potassium 4.6 lactic acid 2.5 glucose 112 AST 47 ALT 38 lipase 142 TSH 0.49 alcohol 220 drug screen negative Tylenol negative aspirin negative Imaging studies independently reviewed: CT chest abdomen pelvis no acute finding Consultations: 12:28 p.m.. Social work has seen patient. He declines detox today but he does have appointment scheduled for 9:00 a.m. tomorrow. Treatments: Ativan/CIWA protocol Re-evaluations: 12:30 p.m.. Spoke with patient and he does not want immediate detox now he has appointment tomorrow at 9:00 a.m.. He does agree with short course of Librium to get him through the night. 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 He desires discharge home Discussion: Appropriate for discharge home patient feeling much better does not want detox today. 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 tomorrow to detox. Social work has seen patient. Not toxic. Lactic acid noted however likely related to alcohol. However patient did receive 2 L of normal saline Diagnosis: Alcohol abuse Discharge Plan Departure Patient Disposition: Home Clinical Impression: Alcoholism Instructions: DI for Alcohol Use Disorder Activity Restrictions/Additional Instructions: No driving or operating machinery today. Please go to detox tomorrow as scheduled at 9:00 a.m.. Short course of Librium has been provided for you to help for withdrawals. Return if worse if any questions or concerns. Please review resources provided by social work today. Return if worse if any questions or concerns Prescriptions: New chlordiazepoxide HCl 25 mg capsule 25 mg PO QID Qty: 12 0RF No Action bupropion HCl 300 mg tablet extended release 24 hr 300 mg PO DAILY hydroxyzine pamoate 50 mg capsule 50 mg PO 3XD lidocaine 5 % adhesive patch,medicated 1 patch topical DAILY Qty: 15 0RF Rx Instructions: leave on most painful area for up to 12 hrs dextroamphetamine-amphetamine 20 mg capsule,extended release 24hr See Rx Instructions .ROUTE .COMPLEX Qty: 90 0RF Rx Instructions: 40 mg (2 caps) PO QAM and 20 mg (1 cap) PO Q Noon dextroamphetamine-amphetamine 20 mg capsule,extended release 24hr See Rx Instructions .ROUTE .COMPLEX Qty: 90 0RF Rx Instructions: 40 mg (2 caps) PO QAM and 20 mg (1 cap) PO Q Noon; dextroamphetamine-amphetamine 20 mg capsule,extended release 24hr See Rx Instructions .ROUTE .COMPLEX Qty: 90 0RF Rx Instructions: 40 mg (2 tabs) PO QAM and 20 mg (1 tab) PO QNoon; acetaminophen [Tylenol Extra Strength] 500 mg tablet 1,000 mg PO Q6H PRN Excedrin Extra Strength 250-250-65 mg tablet 1 tab PO Q4-6H PRN lorazepam 1 mg tablet 1 mg PO TID Qty: 6 0RF Rx Instructions: Day 1 1 tablet 3 times a day, Day 2 1 tablet twice a day, Day 3 1 tablet Referrals: Miscellaneous,Doctor, MD [Primary Care Provider] - Stand Alone Forms: Patient Portal/API
[2023-09-12 08:54] LABS: Add Manual Diff / Slide Review NO; Basophils Absolute Auto 0 /uL (0-100); Eosinophils Absolute Auto 0 /uL (0-450); Hematocrit 43.2 % (41-53); Hemoglobin 15.1 g/dL (13.5-17.5); Lymphocytes Absolute Auto 1400 /uL (1100-4500); Lymphocytes Percent Auto 29.9 % (25-40); Mean Corpuscular HGB Conc 34.9 % (30-36); Mean Corpuscular Hemoglobin 32.1 PG (26-34); Mean Corpuscular Volume 92.1 fL (80-100); Monocytes Absolute Auto 400 /uL (0-900); Neutrophils Absolute Auto 2900 /uL (1500-7000); Neutrophils Percent Auto 61.1 % (50-75); Platelet Count 296 X10^3/uL (150-400); Red Blood Cell Count 4.69 X10^6/uL (4.5-5.9); Red Cell Distribution Width 13.9 % (11.6-14.8); White Blood Cell Count 4.7 X10^3/uL (4.5-11.0)
[2023-09-12 09:00] LABS: Appearance Urine UA CLEAR; Bilirubin Urine UA NEGATIVE (NEGATIVE); Color Urine UA YELLOW; Glucose Urine UA NEGATIVE (Negative); Ketones Urine UA NEGATIVE (NEGATIVE); Leukocyte Esterase Urine UA NEGATIVE (NEGATIVE); Nitrite Urine UA NEGATIVE (Negative); Occult Blood Urine UA NEGATIVE (Negative); Protein Urine UA NEGATIVE (Negative); Specific Gravity Urine UA >=1.030 (1.000-1.035); Urobilinogen Urine UA 0.2 E.U./dL (0.2); pH Urine UA 5.5 (4.5-8.0)
[2023-09-12 09:00] LABS: Acetaminophen < 10 ug/mL (10-30); Alanine Aminotransferase 38 IU/L (<50); Albumin 4.7 g/dL (3.5-5.0); Albumin Globulin Ratio 1.5 (1.0-2.8); Alkaline Phosphatase 53 U/L (38-126); Aspartate Aminotransferase 47 IU/L (17-59); BUN Creatinine Ratio 22.4 (6-22); Bilirubin Unconjugated 0.5 mg/dL (0.0-1.1); Blood Urea Nitrogen 22 mg/dL (9-20); Calcium 8.7 mg/dL (8.4-10.2); Carbon Dioxide 25 mmol/L (22-32); Chloride 102 mmol/L (98-107); Estimated Glomerular Filt Rate > 60 mL/min (>60); Ethanol (ETOH) 220 mg/dL; Globulin 3.2 g/dL (1.7-4.1); Glucose 112 mg/dL (70-100); HEMOLYSIS 18 (0-50); Lactate (Lactic Acid) 2.5 mmol/L (0.7-2.1); Lipase 142 U/L (23-300); Potassium 4.6 mmol/L (3.4-5.1); Salicylate < 1.0 mg/dL (<20); Sodium 140 mmol/L (137-145); Total Protein 7.9 g/dL (6.3-8.2)
[2023-09-12] MEDS: THIAMINE 100 MG TABLET PO (09:02)
[2023-09-12] MEDS: LORazepam 2 MG/ML INJ IV ×2 (09:02→10:38)
[2023-09-12] MEDS: MULTIVITAMIN 1 TABLET 1 TAB PO (09:02)
[2023-09-12] MEDS: ONDANSETRON 4 MG/2 ML INJ IV (09:02)
[2023-09-12] MEDS: FOLIC ACID 1 MG TABLET PO (09:02)
[2023-09-12] MEDS: SODIUM CHLORIDE 0.9% 500 ML 1000 ML IV (09:02)
[2023-09-12 09:09] LABS: Bacteria Urine None Seen; Culture Indicated Urine Cult Not Indicated; RBC Urine None Seen (0-5/HPF); Squamous Epithelial Cell Urine None Seen (0-5/HPF); Urine Volume 10mL (spun); WBC Urine None Seen (0-5/HPF)
[2023-09-12 09:15] LABS: Magnesium 1.8 mg/dL (1.6-2.3)
[2023-09-12] MEDS: NICOTINE 21 MG PATCH TOP (09:39)
[2023-09-12 10:17] LABS: Reflexed Lactate in 2 Hours Y
--- NOTE | 2023-09-12 10:42 | PC.NURSE ---
Pt tolerated PO water, apple sauce, and yogurt. 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 Pt appears anxious, restless, and fidgety on stretcher. VS WNL. Pt then also requesting a sandwich. [place] deferred at this time, as multiple benzos are being given for CIWA protocol, see MAR. Call light remains within reach.
[2023-09-12 11:02] LABS: Lactate 2HR (Lactic Acid Rflx) 2.6 mmol/L (0.7-2.1)
[2023-09-12] MEDS: SODIUM CHLORIDE 0.9% 1,000 ML 1000 ML IV (11:27)
--- NOTE | 2023-09-12 12:13 | CM.SWNOTE ---
ED BRICKLAYER TENDER Note: Patient is a 33yo male, resident of [place], presented to the ED for ETOH withdrawal, requesting detox. Patient lives in a house with his ex-girlfriend, Ashia, and their two children. BRICKLAYER TENDER was consulted to assist with referral and detox placement. Patient's primary care provider is Dagoberto Marie DO and insurance is [facility], Medicaid. Per EMR review and discussing pt with ED staff, pt has had a hx of attempting to detox independently and relapsing; pt was most recently seen in ED in July 2023. Pt had obtained Ativan in the ED per [facility] protocols. BRICKLAYER TENDER entered room, introduced self and role. Pt explained he is feeling better and believes he got through the tough part of detox, I can do this at home. Pt feels supported by his ex-girlfriend, Ashia, who has medical background and has monitored pt's detox before. Patient requesting to continue detox from home with a lorazepam PRN. Pt confirmed that he fell off the wagon and drank for a week. Pt was not able to quantify drinking, I drank a lot of whiskey. Pt denies any hallucinations, denies AH/VH. 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 Patient denies any recent social stressors to cause him to start drinking again but pt explains he ran out of his Adderrall prescription on 08/22 and this usually triggers him to drink, it's the only way of self medicating my ADHD. Patient explains he had an appt with his PCP to refill his medications yesterday but he missed that appt due to drinking. Patient denied [facility] referral, pt agreeable to follow up for BEN and psych medication management with [facility]. BRICKLAYER TENDER sent referral to [facility] and initiated intake appointment with [facility] on 09/12 at 9:00am. Pt provided with [facility] handout and appointment time. Plan: Pt to discharge against medical advice, back home with ex-girlfriend, to transport home. Pt to follow up with [facility] via telehealth intake appt on 09/12 at 9:00am. NICOLE Lindsay
[2023-09-12] MEDS: LORazepam 0.5 MG TABLET 1 MG PO (12:32)
--- NOTE | 2023-09-12 13:03 | PC.NURSE ---
Patient was resistant to go to [facility] detox due to feelings of the facility having unsafe practices with other patients. He stated that their are alot of sketchy drug addicts there who have access to knives. He went on to say that he feels more safe in long-term than [facility]. The patient currently has a positive plan in place where his ex girlfriend is going to help monitor him at home and will report to his detox in the morning. He is feeling well at the moment and is ready to go home.
== END 2023-09-12 13:13 | disposition home or self-care (01) ==
PROVIDERS: Emergency Provider Emergency Medicine
DX: F10.129 Alcohol abuse with intoxication, unspecified (principal); Y90.7 Blood alcohol level of 200-239 mg/100 ml; R25.1 Tremor, unspecified; R11.0 Nausea
CPT/HCPCS: 36415; 71260; 74177; 80053; 80076; 80305; 80320; 80329; 81001; 81003; 83605; 83690; 83735; 84443; 85025; 96361; 96374; 96375; 96376; 99284; G0480; J2060; J2405; Q9967

== ENCOUNTER 2023-09-17 01:31 | Emergency (ER) | payer OTHER, MEDICAID, SELFPAY ==
[2023-09-17 01:35] VITALS: PULSE 108; RESP 26; TEMP 36.6; O2SAT 100
--- NOTE | 2023-09-17 01:35 | ED_ITS ---
HPI - General Adult General Chief complaint: Medical Clearance Stated complaint: fit for care home Time Seen by Provider: 09/17/23 01:35 History of Present Illness HPI narrative: 33-year-old male with history of alcohol use disorder presents for medical clearance prior to going to care home. Patient found by law enforcement officers naked, stating that he had taken an unknown white substance prior to their arrival. Related Data Home Medications Medication Instructions Recorded Confirmed acetaminophen 500 mg tablet 1,000 mg PO Q6H PRN 07/26/18 03/06/23 (Tylenol Extra Strength) [id number]-[id number]-[id number] 250 1 tab PO Q4-6H PRN 07/26/18 03/06/23 mg-250 mg-65 mg tablet (Excedrin Extra Strength) bupropion HCl 300 mg 24 hr tablet, 300 mg PO DAILY 03/06/23 03/06/23 extended release hydroxyzine pamoate 50 mg capsule 50 mg PO 3XD 03/06/23 03/06/23 Previous Rx's Medication Instructions Recorded dextroamphetamine-amphetamine ER See Rx Instructions .Route 05/30/22 20 mg 24hr capsule,extend release .COMPLEX #90 caps dextroamphetamine-amphetamine ER See Rx Instructions .Route 05/30/22 20 mg 24hr capsule,extend release .COMPLEX #90 caps dextroamphetamine-amphetamine ER See Rx Instructions .Route 09/18/22 20 mg 24hr capsule,extend release .COMPLEX #90 caps lidocaine 5 % topical patch 1 patch topical DAILY #15 ea 03/06/23 lorazepam 1 mg tablet 1 mg PO TID #6 tabs 07/22/23 chlordiazepoxide HCl 25 mg capsule 25 mg PO QID #12 caps 09/12/23 Allergies Allergy/AdvReac Type Severity Reaction Status Date / Time bupropion [From Wellbutrin] Allergy Mild Anxiety Verified 09/12/23 08:26 Patient History Medical History History of pancreatitis Anxiety Tachycardia Cocaine abuse Alcohol abuse Alcoholism Social History Smoking Status: Current some day smoker Tobacco: How many years used: 10 quit status: not considering quitting second hand exposure: No alcohol intake: current substance use type: does not use Smoking Status: Current some day smoker alcohol intake frequency: 3 or more drinks per day Alcohol type: beer, wine and hard liquor Substance Use Type: former substance user and crack/cocaine Exam Initial Vital Signs Initial Vital Signs: Const: Awake, agitated, appears intoxicated Cardiac: Tachycardia, regular rhythm RESP: Clear bilaterally, speaking without dyspnea GI: Soft, nontender, nondistended Skin: Warm, Dry, intact, no rashes Neuro: Moves all extremities, appears to be under the influence of stimulant substances Course Orders Ordered: Discontinued Medications Lorazepam (Lorazepam 2 Mg/Ml Inj) 2 mg IM NOW ONE Stop: 09/17/23 01:42 Last Admin: 09/17/23 01:47 Dose: 2 mg Medical Decision Making Differential Diagnosis Differential Diagnosis: Fentanyl overdose, cocaine overdose, amphetamine overdose MDM Narrative Medical decision making narrative: Patient presenting for medical clearance prior to going to care home. Patient appears to be under the influence of a stimulating substance, his pupils are blown, he was very agitated and tangential in thought process. Unfortunately due to patient agitation we were unable to obtain a blood pressure, however he has a palpable pulse and is denying any medical complaints. Patient was given 2 mg of Ativan to help his agitation. The law enforcement officers state that patient says he may have taken fentanyl but isn't sure. They state that people we will be monitoring the patient in care home and they have Narcan at their facility if patient becomes less responsive. At this time I have low suspicion for patient to have opiate overdose. Discharge Plan Departure Patient Disposition: Home Clinical Impression: Agitation Instructions: DI for Substance Use Disorder Activity Restrictions/Additional Instructions: PATIENT IS MEDICALLY FIT FOR LONGTERM Prescriptions: No Action bupropion HCl 300 mg tablet extended release 24 hr 300 mg PO DAILY hydroxyzine pamoate 50 mg capsule 50 mg PO 3XD lidocaine 5 % adhesive patch,medicated 1 patch topical DAILY Qty: 15 0RF Rx Instructions: leave on most painful area for up to 12 hrs dextroamphetamine-amphetamine 20 mg capsule,extended release 24hr See Rx Instructions .ROUTE .COMPLEX Qty: 90 0RF Rx Instructions: 40 mg (2 caps) PO QAM and 20 mg (1 cap) PO Q Noon dextroamphetamine-amphetamine 20 mg capsule,extended release 24hr See Rx Instructions .ROUTE .COMPLEX Qty: 90 0RF Rx Instructions: 40 mg (2 caps) PO QAM and 20 mg (1 cap) PO Q Noon; dextroamphetamine-amphetamine 20 mg capsule,extended release 24hr See Rx Instructions .ROUTE .COMPLEX Qty: 90 0RF Rx Instructions: 40 mg (2 tabs) PO QAM and 20 mg (1 tab) PO QNoon; acetaminophen [Tylenol Extra Strength] 500 mg tablet 1,000 mg PO Q6H PRN Excedrin Extra Strength 250-250-65 mg tablet 1 tab PO Q4-6H PRN lorazepam 1 mg tablet 1 mg PO TID Qty: 6 0RF Rx Instructions: Day 1 1 tablet 3 times a day, Day 2 1 tablet twice a day, Day 3 1 tablet chlordiazepoxide HCl 25 mg capsule 25 mg PO QID Qty: 12 0RF Referrals: Miscellaneous,Doctor, [Non-Staff] - Stand Alone Forms: Patient Portal/API
[2023-09-17] MEDS: LORazepam 2 MG/ML INJ IM (01:47)
== END 2023-09-17 02:11 | disposition home or self-care (01) ==
PROVIDERS: Emergency Provider Emergency Medicine; PCP Family Medicine
DX: R45.1 Restlessness and agitation (principal)
CPT/HCPCS: 96372; 99283; J2060

== ENCOUNTER 2023-10-25 14:15 | Emergency (ER) | payer OTHER, MEDICAID, SELFPAY ==
[2023-10-25 14:18] VITALS: BP 135/99; PULSE 130; RESP 17; TEMP 36.9; O2SAT 95; BMI 27.3
[2023-10-25 15:01] LABS: Add Manual Diff / Slide Review NO; Basophils Absolute Auto 0 /uL (0-100); Eosinophils Absolute Auto 0 /uL (0-450); Eosinophils Percent Auto 0.1 % (2-4); Hematocrit 41.1 % (41-53); Hemoglobin 14.1 g/dL (13.5-17.5); Lymphocytes Absolute Auto 1600 /uL (1100-4500); Lymphocytes Percent Auto 36.3 % (25-40); Mean Corpuscular HGB Conc 34.3 % (30-36); Mean Corpuscular Hemoglobin 31.1 PG (26-34); Mean Corpuscular Volume 90.5 fL (80-100); Monocytes Absolute Auto 300 /uL (0-900); Monocytes Percent Auto 6.7 % (3-14); Neutrophils Absolute Auto 2500 /uL (1500-7000); Neutrophils Percent Auto 55.9 % (50-75); Platelet Count 372 X10^3/uL (150-400); Red Blood Cell Count 4.54 X10^6/uL (4.5-5.9); Red Cell Distribution Width 13.2 % (11.6-14.8); White Blood Cell Count 4.4 X10^3/uL (4.5-11.0)
[2023-10-25] MEDS: THIAMINE 200 MG in SODIUM CHLORIDE 0.9% 100 ML 408 MG IV (15:02)
[2023-10-25] MEDS: PHENobarbital 65 MG/ML VIAL 130 MG IV (15:02)
[2023-10-25] MEDS: SODIUM CHLORIDE 0.9% 1,000 ML 1000 ML IV (15:04)
--- NOTE | 2023-10-25 15:05 | ED.ALCOHOL ---
HPI - Alcohol General Chief Complaint: Toxicology Problem Stated Complaint: Alcohol Withdrawal Time Seen by Provider: 10/25/23 14:33 History of Present Illness HPI narrative: Patient 33-year-old male history of alcohol abuse presenting today with alcohol withdrawal. Reports that he went on for day [place] drinking excessive Anish Simmons. He did not drink all day yesterday and had a drink very early this morning. He feels quite shaky now and was encouraged by others to come in. No history of alcohol withdrawal seizures. Denies any abdominal pain nausea or vomiting. Not interested in detox now but not feeling great. Related Data Home Medications Medication Instructions Recorded Confirmed acetaminophen 500 mg tablet 1,000 mg PO Q6H PRN 07/26/18 03/06/23 (Tylenol Extra Strength) [id number]-[id number]-[id number] 250 1 tab PO Q4-6H PRN 07/26/18 03/06/23 mg-250 mg-65 mg tablet (Excedrin Extra Strength) bupropion HCl 300 mg 24 hr tablet, 300 mg PO DAILY 03/06/23 03/06/23 extended release hydroxyzine pamoate 50 mg capsule 50 mg PO 3XD 03/06/23 03/06/23 Previous Rx's Medication Instructions Recorded dextroamphetamine-amphetamine ER See Rx Instructions .Route 05/30/22 20 mg 24hr capsule,extend release .COMPLEX #90 caps dextroamphetamine-amphetamine ER See Rx Instructions .Route 05/30/22 20 mg 24hr capsule,extend release .COMPLEX #90 caps dextroamphetamine-amphetamine ER See Rx Instructions .Route 09/18/22 20 mg 24hr capsule,extend release .COMPLEX #90 caps lidocaine 5 % topical patch 1 patch topical DAILY #15 ea 03/06/23 lorazepam 1 mg tablet 1 mg PO TID #6 tabs 07/22/23 chlordiazepoxide HCl 25 mg capsule 25 mg PO QID #12 caps 09/12/23 chlordiazepoxide HCl 25 mg capsule 25 mg PO QID 12 doses #12 caps 10/25/23 Allergies Allergy/AdvReac Type Severity Reaction Status Date / Time bupropion [From Wellbutrin] Allergy Mild Anxiety Verified 09/12/23 08:26 Patient History Medical History (Updated 10/25/23 @ 17:08 by Rebecca Garcia DO) History of pancreatitis Anxiety Tachycardia Cocaine abuse Alcohol abuse Alcoholism Social History (Reviewed 10/25/23 @ 15:07 by NATHALY Love Smoking Status: Current some day smoker Tobacco: How many years used: 10 quit status: not considering quitting second hand exposure: No alcohol intake: current substance use type: does not use Smoking Status: Current some day smoker alcohol intake frequency: 3 or more drinks per day Alcohol type: beer, wine and hard liquor Substance Use Type: former substance user and crack/cocaine Exam Initial Vital Signs Initial Vital Signs: Vital Signs Temperature 98.4 F 10/25/23 14:18 Pulse Rate 130 H 10/25/23 14:18 Respiratory Rate 17 10/25/23 14:18 Blood Pressure 135/99 H 10/25/23 14:18 Pulse Oximetry 95 10/25/23 14:18 Oxygen Delivery Method Room Air 10/25/23 14:18 GENERAL: Alert 33-year-old male appears anxious and in no acute distress. HEENT: Head atraumatic,EOMI, pupils reactive, face symmetric, moist mucous membranes CARDIOVASCULAR: Tachycardic RESPIRATORY: Breath sounds equal bilaterally, no wheezes rales or rhonchi. ABDOMEN: Soft, nontender. Normoactive bowel sounds all 4 quadrants. No guarding or rebound. EXTREMITIES: Normal range of motion, no clubbing or edema. Neurovascularly intact NEUROLOGICAL: Alert and oriented x4.Normal gait and speech. SKIN: Warm, dry, no laceration, no petechiae, no rashes or lesions. Course Orders Ordered: ED Orders 10/25/23 14:40 CBC Auto Diff [Complete Blood Count AUTO DIFF] Stat CMP [Comprehensive Metabolic Panel] Stat ETOH [Ethanol (ETOH)] Stat Lipase Stat 10/25/23 14:53 Urine Drug Screen, Rapid Stat Discontinued Medications Sodium Chloride (Normal Saline 0.9%) 1,000 mls @ 1,000 mls/hr IV BOLUS ONE Stop: 10/25/23 15:49 Last Infusion: 10/25/23 16:17 Dose: Infused Documented By: Admin: 10/25/23 15:04 Dose: 1,000 mls/hr Documented By: CHEMA Thiamine HCl 200 mg/ Sodium (Chloride) 102 mls @ 408 mls/hr IV NOW ONE Stop: 10/25/23 14:51 Last Infusion: 10/25/23 15:27 Dose: Infused Documented By: Admin: 10/25/23 15:02 Dose: 408 mls/hr Documented By: CHEMA Lorazepam (Lorazepam 2 Mg/Ml Inj) 2 mg IV NOW ONE Stop: 10/25/23 17:02 Last Admin: 10/25/23 17:28 Dose: 2 mg Documented By: CHEMA Phenobarbital (Phenobarbital 65 Mg/Ml Vial) 130 mg IV NOW ONE Stop: 10/25/23 14:51 Last Admin: 10/25/23 15:02 Dose: 130 mg Documented By: CHEMA Vital Signs Vital signs: Vital Signs - 8 hr 10/25/23 14:18 10/25/23 16:17 10/25/23 16:30 Temperature 98.4 F Pulse Rate 130 H 113 H 118 H Respiratory Rate 17 27 H 29 H Blood Pressure 135/99 H 132/85 Pulse Oximetry 95 100 97 Oxygen Delivery Method Room Air 10/25/23 16:37 10/25/23 16:37 10/25/23 17:30 Temperature Pulse Rate 114 H 125 H Respiratory Rate 25 H Blood Pressure 132/85 Pulse Oximetry 97 98 Oxygen Delivery Method Room Air 10/25/23 17:31 10/25/23 17:31 Temperature Pulse Rate 125 H Respiratory Rate 22 Blood Pressure 140/89 Pulse Oximetry 97 Oxygen Delivery Method Room Air MDM - Alcohol Lab Data 10/25/23 14:40 10/25/23 14:40 Labs: Lab Results 10/25/23 10/25/23 Range/Units 14:40 14:53 WBC 4.4 L (4.5-11.0) X10^3/uL RBC 4.54 (4.5-5.9) X10^6/uL Hgb 14.1 (13.5-17.5) g/dL Hct 41.1 (41-53) % MCV 90.5 (80-100) fL MCH 31.1 (26-34) PG MCHC 34.3 (30-36) % RDW 13.2 (11.6-14.8) % Plt Count 372 (150-400) X10^3/uL Neut % (Auto) 55.9 (50-75) % Lymph % (Auto) 36.3 (25-40) % [place] % (Auto) 6.7 (3-14) % Eos % (Auto) 0.1 L (2-4) % Baso % (Auto) 1.0 (0-2) % Neut # (Auto) 2500 (5373-0600) /uL Lymph # (Auto) 1600 (8510-9479) /uL [place] # (Auto) 300 (0-900) /uL Eos # (Auto) 0 (0-450) /uL Baso # (Auto) 0 (0-100) /uL Sodium 140 (137-145) mmol/L Potassium 4.7 (3.4-5.1) mmol/L Chloride 104 (98-107) mmol/L Carbon Dioxide 20 L (22-32) mmol/L BUN 12 (9-20) mg/dL Creatinine 0.81 (0.66-1.25) mg/dL Estimated GFR > 60 (>60) mL/min BUN/Creatinine Ratio 14.8 (6-22) Glucose 124 H (70-100) mg/dL Calcium 9.1 (8.4-10.2) mg/dL Total Bilirubin 0.5 (0.2-1.3) mg/dL AST 54 (17-59) IU/L ALT 32 (<50) IU/L Alkaline Phosphatase 54 (38-126) U/L Total Protein 7.8 (6.3-8.2) g/dL Albumin 4.5 (3.5-5.0) g/dL Globulin 3.3 (1.7-4.1) g/dL Albumin/Globulin Ratio 1.4 (1.0-2.8) Lipase 69 (23-300) U/L U Opiates 300ng/mL cut Negative (Negative) Ur Oxycodone Screen Negative (Negative) Urine Methadone Screen Negative (Negative) Ur Barbiturates Screen Negative (Negative) U Tricyclic Antidepress Negative (Negative) Ur Phencyclidine Scrn Negative (Negative) Ur Amphetamines Screen Negative (Negative) U Methamphetamines Scrn Negative (Negative) Ur MDMA Scrn (Ecstasy) Negative (Negative) U Benzodiazepines Scrn Negative (Negative) Urine Cocaine Screen Negative (Negative) U Marijuana (THC) Screen Negative (Negative) Urine pH Normal (Normal) Urine Specific [place] Normal (Normal) Ethyl Alcohol 272 H ( - 10) mg/dL Ur Creatinine Normal (Normal) MDM Narrative Medical decision making narrative: 33-year-old male known alcoholic presenting today with alcohol withdrawal. He is currently so intoxicated with an alcohol level of 272. He has no slurring of speech and a steady gait. He is tachycardic. He was given a dose of phenobarb thiamine and normal saline. He has not interested in detox he was previously detox at home with Librium he would like to do this again. Abdomen remained soft he has not vomiting getting agitated really wants to go home does not want eat does not want to talk to the social human services assistants. Other blood work has been reviewed no leukocytosis or thrombocytopenia, electrolytes are stable bicarb 20 glucose 124 bilirubin 0.5 AST 54 ALT 32 lipase 69 He is aware of risks including and seizure. He is welcome to return to the ED at any time.He has a steady gait he says that he is walking. We tried to call him a taxi cab but he refused. He is clinically sober. Discharge Plan Departure Patient Disposition: Home Clinical Impression: Alcohol withdrawal Instructions: DI for Delirium Tremens Activity Restrictions/Additional Instructions: *You have been diagnosed with alcohol withdrawal *What to do: At this time I do encourage you to go to a medical detox facility you can call or around you do not need ER clearance. *Continue to take medications as directed Librium 25 mg 4 times a day *Follow up with your primary care provider in 2-3 days or call [phone] *Return to ER if you should have seizures shaking persistent vomiting hallucinations or any new, worsening or concerning symptoms Prescriptions: New chlordiazepoxide HCl 25 mg capsule 25 mg PO QID Qty: 12 0RF Rx Instructions: until symptoms controlled No Action bupropion HCl 300 mg tablet extended release 24 hr 300 mg PO DAILY hydroxyzine pamoate 50 mg capsule 50 mg PO 3XD lidocaine 5 % adhesive patch,medicated 1 patch topical DAILY Qty: 15 0RF Rx Instructions: leave on most painful area for up to 12 hrs dextroamphetamine-amphetamine 20 mg capsule,extended release 24hr See Rx Instructions .ROUTE .COMPLEX Qty: 90 0RF Rx Instructions: 40 mg (2 caps) PO QAM and 20 mg (1 cap) PO Q Noon dextroamphetamine-amphetamine 20 mg capsule,extended release 24hr See Rx Instructions .ROUTE .COMPLEX Qty: 90 0RF Rx Instructions: 40 mg (2 caps) PO QAM and 20 mg (1 cap) PO Q Noon; dextroamphetamine-amphetamine 20 mg capsule,extended release 24hr See Rx Instructions .ROUTE .COMPLEX Qty: 90 0RF Rx Instructions: 40 mg (2 tabs) PO QAM and 20 mg (1 tab) PO QNoon; acetaminophen [Tylenol Extra Strength] 500 mg tablet 1,000 mg PO Q6H PRN Excedrin Extra Strength 250-250-65 mg tablet 1 tab PO Q4-6H PRN lorazepam 1 mg tablet 1 mg PO TID Qty: 6 0RF Rx Instructions: Day 1 1 tablet 3 times a day, Day 2 1 tablet twice a day, Day 3 1 tablet chlordiazepoxide HCl 25 mg capsule 25 mg PO QID Qty: 12 0RF Referrals: Dagoberto Marie DO [Primary Care Provider] - Stand Alone Forms: Patient Portal/API, Work Release Note
[2023-10-25 15:06] LABS: Alanine Aminotransferase 32 IU/L (<50); Albumin 4.5 g/dL (3.5-5.0); Albumin Globulin Ratio 1.4 (1.0-2.8); Alkaline Phosphatase 54 U/L (38-126); Aspartate Aminotransferase 54 IU/L (17-59); BUN Creatinine Ratio 14.8 (6-22); Bilirubin Total 0.5 mg/dL (0.2-1.3); Blood Urea Nitrogen 12 mg/dL (9-20); Calcium 9.1 mg/dL (8.4-10.2); Carbon Dioxide 20 mmol/L (22-32); Chloride 104 mmol/L (98-107); Estimated Glomerular Filt Rate > 60 mL/min (>60); Ethanol (ETOH) 272 mg/dL; Globulin 3.3 g/dL (1.7-4.1); Glucose 124 mg/dL (70-100); HEMOLYSIS 17 (0-50); Lipase 69 U/L (23-300); Potassium 4.7 mmol/L (3.4-5.1); Sodium 140 mmol/L (137-145); Total Protein 7.8 g/dL (6.3-8.2)
[2023-10-25 15:12] LABS: UR Morphine/Opiate cutoff 300 Negative (Negative); Ur Creatinine Normal (Normal); Ur Specific Gravity Normal (Normal); Urine Amphetamines Negative (Negative); Urine Barbiturates Negative (Negative); Urine Benzodiazepines Negative (Negative); Urine Cocaine Negative (Negative); Urine MDMA Negative (Negative); Urine Methadone Negative (Negative); Urine Methamphetamines Negative (Negative); Urine Oxycodone Negative (Negative); Urine Phencyclidine Negative (Negative); Urine Tetrahydrocannabinol Negative (Negative); Urine Tricyclic Antidepressant Negative (Negative); Urine pH Normal (Normal)
[2023-10-25 16:17] VITALS: PULSE 113; RESP 27; O2SAT 100
[2023-10-25 16:30] VITALS: BP 132/85; PULSE 118; RESP 29; O2SAT 97
[2023-10-25 16:37] VITALS: BP 132/85; PULSE 114; RESP 25; O2SAT 97
[2023-10-25] MEDS: LORazepam 2 MG/ML INJ IV (17:28)
[2023-10-25 17:30] VITALS: PULSE 125; O2SAT 98
[2023-10-25 17:31] VITALS: BP 140/89; PULSE 125; RESP 22; O2SAT 97
--- NOTE | 2023-10-25 17:33 | PC.NURSE ---
PT leaving ER and states he will not be driving and he will walk home. Pt refused taxi cab. Pt insists he is walking home and did not drive.
== END 2023-10-25 17:43 | disposition home or self-care (01) ==
PROVIDERS: Emergency Provider Emergency Medicine; PCP Family Medicine
DX: F10.239 Alcohol dependence with withdrawal, unspecified (principal); Y90.8 Blood alcohol level of 240 mg/100 ml or more; R79.89 Other specified abnormal findings of blood chemistry
CPT/HCPCS: 36415; 80053; 80305; 80320; 83690; 85025; 96361; 96365; 96375; 99284; J2060; J2560

== ENCOUNTER 2023-10-26 11:58 | Emergency (ER) | payer OTHER, MEDICAID, SELFPAY ==
[2023-10-26] VITALS (29 sets, daily range): BP systolic 96–178; BP diastolic 61–104; PULSE 82–107; RESP 13–26; TEMP 36.6; O2SAT 90–100; BMI 26.6
--- NOTE | 2023-10-26 12:18 | PC.NURSE ---
assisted pt to bathroom. urine obtained and sent. Pt placed in wheelchair and in rm 4. assisted to bed.
[2023-10-26 12:32] LABS: UR Morphine/Opiate cutoff 300 Negative (Negative); Ur Creatinine Normal (Normal); Ur Specific Gravity Normal (Normal); Urine Amphetamines Negative (Negative); Urine Barbiturates Negative (Negative); Urine Benzodiazepines Positive (Negative); Urine Cocaine Negative (Negative); Urine MDMA Negative (Negative); Urine Methadone Negative (Negative); Urine Methamphetamines Negative (Negative); Urine Oxycodone Negative (Negative); Urine Phencyclidine Negative (Negative); Urine Tetrahydrocannabinol Negative (Negative); Urine Tricyclic Antidepressant Negative (Negative); Urine pH Normal (Normal)
[2023-10-26] MEDS: SODIUM CHLORIDE 0.9% 1,000 ML 1000 ML IV (12:38)
[2023-10-26] MEDS: THIAMINE 200 MG in SODIUM CHLORIDE 0.9% 100 ML 408 MG IV (12:38)
[2023-10-26 12:39] LABS: Add Manual Diff / Slide Review NO; Basophils Absolute Auto 100 /uL (0-100); Basophils Percent Auto 1.5 % (0-2); Eosinophils Absolute Auto 0 /uL (0-450); Eosinophils Percent Auto 0.2 % (2-4); Hematocrit 39.8 % (41-53); Hemoglobin 13.7 g/dL (13.5-17.5); Lymphocytes Absolute Auto 1600 /uL (1100-4500); Lymphocytes Percent Auto 34.6 % (25-40); Mean Corpuscular HGB Conc 34.5 % (30-36); Mean Corpuscular Hemoglobin 31.3 PG (26-34); Mean Corpuscular Volume 90.8 fL (80-100); Monocytes Absolute Auto 500 /uL (0-900); Monocytes Percent Auto 9.7 % (3-14); Neutrophils Absolute Auto 2500 /uL (1500-7000); Platelet Count 310 X10^3/uL (150-400); Red Blood Cell Count 4.38 X10^6/uL (4.5-5.9); Red Cell Distribution Width 13.5 % (11.6-14.8); White Blood Cell Count 4.7 X10^3/uL (4.5-11.0)
[2023-10-26] MEDS: PHENobarbital 65 MG/ML VIAL 260 MG IV (12:39)
[2023-10-26 12:50] LABS: Acetaminophen < 10 ug/mL (10-30); Alanine Aminotransferase 36 IU/L (<50); Albumin 4.3 g/dL (3.5-5.0); Albumin Globulin Ratio 1.2 (1.0-2.8); Alkaline Phosphatase 59 U/L (38-126); Aspartate Aminotransferase 57 IU/L (17-59); BUN Creatinine Ratio 15.4 (6-22); Bilirubin Total 0.6 mg/dL (0.2-1.3); Blood Urea Nitrogen 12 mg/dL (9-20); Carbon Dioxide 26 mmol/L (22-32); Chloride 104 mmol/L (98-107); Estimated Glomerular Filt Rate > 60 mL/min (>60); Globulin 3.5 g/dL (1.7-4.1); Glucose 107 mg/dL (70-100); Salicylate < 1.0 mg/dL (<20); Sodium 140 mmol/L (137-145); Total Protein 7.8 g/dL (6.3-8.2)
[2023-10-26 12:58] LABS: Ethanol (ETOH) 317 mg/dL; HEMOLYSIS 55 (0-50)
[2023-10-26] MEDS: diphenhydrAMINE 50 MG/ML VIAL IV (13:12)
[2023-10-26] MEDS: HALOPERIDOL 5 MG/ML VIAL 2 MG IV (13:12)
[2023-10-26 14:23] LABS: Thyroid Stimulating Hormone 1.62 uIU/mL (0.47-4.68)
--- NOTE | 2023-10-26 14:25 | ED_ITS ---
HPI - Alcohol <Rebecca Garcia DO - Last Filed: 10/27/23 07:40> General Chief Complaint: Toxicology Problem Stated Complaint: Alcohol Withdrawal Time Seen by Provider: 10/26/23 12:28 History of Present Illness HPI narrative: Patient 33-year-old male known alcoholic familiar to myself and this facility presenting today with alcohol intoxication wanting detox. He was seen evaluated by me yesterday. He was adamant about going home he got some Librium unsure if he took it. But he would like detox. He has not really redirectable appears unsteady on his feet. Definite slurring of speech with alcohol on breath Related Data Home Medications Medication Instructions Recorded Confirmed acetaminophen 500 mg tablet 1,000 mg PO Q6H PRN 07/26/18 03/06/23 (Tylenol Extra Strength) [id number] 250 1 tab PO Q4-6H PRN 07/26/18 03/06/23 mg-250 mg-65 mg tablet (Excedrin Extra Strength) bupropion HCl 300 mg 24 hr tablet, 300 mg PO DAILY 03/06/23 03/06/23 extended release hydroxyzine pamoate 50 mg capsule 50 mg PO 3XD 03/06/23 03/06/23 Previous Rx's Medication Instructions Recorded dextroamphetamine-amphetamine ER See Rx Instructions .Route 05/30/22 20 mg 24hr capsule,extend release .COMPLEX #90 caps dextroamphetamine-amphetamine ER See Rx Instructions .Route 05/30/22 20 mg 24hr capsule,extend release .COMPLEX #90 caps dextroamphetamine-amphetamine ER See Rx Instructions .Route 09/18/22 20 mg 24hr capsule,extend release .COMPLEX #90 caps lidocaine 5 % topical patch 1 patch topical DAILY #15 ea 03/06/23 lorazepam 1 mg tablet 1 mg PO TID #6 tabs 07/22/23 chlordiazepoxide HCl 25 mg capsule 25 mg PO QID #12 caps 09/12/23 chlordiazepoxide HCl 25 mg capsule 25 mg PO QID 12 doses #12 caps 10/25/23 Allergies Allergy/AdvReac Type Severity Reaction Status Date / Time bupropion [From Wellbutrin] Allergy Mild Anxiety Verified 09/12/23 08:26 Patient History <DO Butch Love Last Filed: 10/27/23 07:40> Medical History (Updated 10/26/23 @ 20:12 by Aleida Cristobal DO) History of pancreatitis Anxiety Tachycardia Cocaine abuse Alcohol abuse Alcoholism Social History Smoking Status: Current some day smoker Tobacco: How many years used: 10 quit status: not considering quitting second hand exposure: No alcohol intake: current substance use type: does not use Smoking Status: Current some day smoker alcohol intake frequency: 3 or more drinks per day Alcohol type: beer, wine and hard liquor Substance Use Type: former substance user and crack/cocaine Exam <Rebecca Garcia DO - Last Filed: 10/27/23 07:40> Initial Vital Signs Initial Vital Signs: Vital Signs Temperature 97.8 F 10/26/23 12:01 Pulse Rate 91 H 10/26/23 12:01 Respiratory Rate 16 10/26/23 12:01 Blood Pressure 144/102 H 10/26/23 12:01 Pulse Oximetry 99 10/26/23 12:01 Oxygen Delivery Method Room Air 10/26/23 12:01 GENERAL: Alert intoxicated 33-year-old male and in [no acute] distress. HEENT: Head atraumatic,EOMI, pupils reactive, face symmetric, CARDIOVASCULAR: Regular rate and rhythm without murmurs, rubs or gallops. RESPIRATORY: Breath sounds equal bilaterally, no wheezes rales or rhonchi. ABDOMEN: Soft, nontender. Normoactive bowel sounds all 4 quadrants. No guarding or rebound. EXTREMITIES: Normal range of motion, no clubbing or edema. Neurovascularly intact NEUROLOGICAL: Slurring of speech unsteady on feet face symmetric SKIN: Warm, dry, no laceration, no petechiae, no rashes or lesions. <Aleida Cristobal DO - Last Filed: 10/27/23 02:53> Initial Vital Signs Initial Vital Signs: Vital Signs Temperature 97.8 F 10/26/23 12:01 Pulse Rate 91 H 10/26/23 12:01 Respiratory Rate 16 10/26/23 12:01 Blood Pressure 144/102 H 10/26/23 12:01 Pulse Oximetry 99 10/26/23 12:01 Oxygen Delivery Method Room Air 10/26/23 12:01 Course <Rebecca Garcia DO - Last Filed: 10/27/23 07:40> Orders Ordered: Discontinued Medications Diphenhydramine HCl (Diphenhydramine 50 Mg/Ml Vial) 50 mg IV NOW ONE Stop: 10/26/23 13:12 Last Admin: 10/26/23 13:12 Dose: 50 mg Documented By: MILLA Haloperidol (Haloperidol 5 Mg/Ml Vial) 2 mg IV NOW ONE Stop: 10/26/23 13:12 Last Admin: 10/26/23 13:12 Dose: 2 mg Documented By: MILLA Thiamine HCl 200 mg/ Sodium (Chloride) 102 mls @ 408 mls/hr IV NOW ONE Stop: 10/26/23 12:29 Last Infusion: 10/26/23 13:16 Dose: Infused Documented By: Admin: 10/26/23 12:38 Dose: 408 mls/hr Documented By: FEDE Sodium Chloride (Normal Saline 0.9%) 1,000 mls @ 1,000 mls/hr IV BOLUS ONE Stop: 10/26/23 13:27 Last Infusion: 10/26/23 13:54 Dose: Infused Documented By: Admin: 10/26/23 12:38 Dose: 1,000 mls/hr Documented By: FEDE Lorazepam (Lorazepam 2 Mg/Ml Inj) 2 mg IV NOW ONE Stop: 10/26/23 14:35 Last Admin: 10/26/23 14:45 Dose: 2 mg Documented By: CHEMA Phenobarbital (Phenobarbital 65 Mg/Ml Vial) 260 mg IV NOW ONE Stop: 10/26/23 12:29 Last Admin: 10/26/23 12:39 Dose: 260 mg Documented By: FEDE Vital Signs Vital signs: Vital Signs - 8 hr 10/26/23 19:00 10/26/23 19:00 10/26/23 19:30 Temperature Pulse Rate 82 82 Respiratory Rate 16 15 Blood Pressure 102/68 Pulse Oximetry 96 97 10/26/23 19:30 10/26/23 20:00 10/26/23 20:00 Temperature Pulse Rate 83 Respiratory Rate 15 Blood Pressure 99/70 118/81 Pulse Oximetry 97 10/26/23 20:30 10/26/23 20:30 10/26/23 21:03 Temperature Pulse Rate 95 H 101 H Respiratory Rate 19 26 H Blood Pressure 120/62 Pulse Oximetry 98 97 10/26/23 21:04 10/26/23 21:04 10/26/23 21:30 Temperature Pulse Rate 99 H 107 H Respiratory Rate 19 Blood Pressure 140/93 H Pulse Oximetry 98 97 10/26/23 21:31 10/26/23 21:31 Temperature 98 F Pulse Rate 100 H Respiratory Rate Blood Pressure 153/104 H Pulse Oximetry 98 <Aleida Cristobal, DO - Last Filed: 10/27/23 02:53> Orders Ordered: Discontinued Medications Diphenhydramine HCl (Diphenhydramine 50 Mg/Ml Vial) 50 mg IV NOW ONE Stop: 10/26/23 13:12 Last Admin: 10/26/23 13:12 Dose: 50 mg Documented By: MILLA Haloperidol (Haloperidol 5 Mg/Ml Vial) 2 mg IV NOW ONE Stop: 10/26/23 13:12 Last Admin: 10/26/23 13:12 Dose: 2 mg Documented By: MILLA Thiamine HCl 200 mg/ Sodium (Chloride) 102 mls @ 408 mls/hr IV NOW ONE Stop: 10/26/23 12:29 Last Infusion: 10/26/23 13:16 Dose: Infused Documented By: Admin: 10/26/23 12:38 Dose: 408 mls/hr Documented By: FEDE Sodium Chloride (Normal Saline 0.9%) 1,000 mls @ 1,000 mls/hr IV BOLUS ONE Stop: 10/26/23 13:27 Last Infusion: 10/26/23 13:54 Dose: Infused Documented By: Admin: 10/26/23 12:38 Dose: 1,000 mls/hr Documented By: FEDE Lorazepam (Lorazepam 2 Mg/Ml Inj) 2 mg IV NOW ONE Stop: 10/26/23 14:35 Last Admin: 10/26/23 14:45 Dose: 2 mg Documented By: CHEMA Phenobarbital (Phenobarbital 65 Mg/Ml Vial) 260 mg IV NOW ONE Stop: 10/26/23 12:29 Last Admin: 10/26/23 12:39 Dose: 260 mg Documented By: FEDE Vital Signs Vital signs: Vital Signs - 8 hr 10/26/23 19:00 10/26/23 19:00 10/26/23 19:30 Temperature Pulse Rate 82 82 Respiratory Rate 16 15 Blood Pressure 102/68 Pulse Oximetry 96 97 10/26/23 19:30 10/26/23 20:00 10/26/23 20:00 Temperature Pulse Rate 83 Respiratory Rate 15 Blood Pressure 99/70 118/81 Pulse Oximetry 97 10/26/23 20:30 10/26/23 20:30 10/26/23 21:03 Temperature Pulse Rate 95 H 101 H Respiratory Rate 19 26 H Blood Pressure 120/62 Pulse Oximetry 98 97 10/26/23 21:04 10/26/23 21:04 10/26/23 21:30 Temperature Pulse Rate 99 H 107 H Respiratory Rate 19 Blood Pressure 140/93 H Pulse Oximetry 98 97 10/26/23 21:31 10/26/23 21:31 Temperature 98 F Pulse Rate 100 H Respiratory Rate Blood Pressure 153/104 H Pulse Oximetry 98 MDM - Alcohol <Rebecca Garcia, DO - Last Filed: 10/27/23 07:40> Lab Data 10/26/23 12:30 10/26/23 12:30 Labs: Lab Results 10/26/23 10/26/23 10/26/23 Range/Units 12:09 12:30 16:27 WBC 4.7 (4.5-11.0) X10^3/uL RBC 4.38 L (4.5-5.9) X10^6/uL Hgb 13.7 (13.5-17.5) g/dL Hct 39.8 L (41-53) % MCV 90.8 (80-100) fL MCH 31.3 (26-34) PG MCHC 34.5 (30-36) % RDW 13.5 (11.6-14.8) % Plt Count 310 (150-400) X10^3/uL Neut % (Auto) 54.0 (50-75) % Lymph % (Auto) 34.6 (25-40) % [place] % (Auto) 9.7 (3-14) % Eos % (Auto) 0.2 L (2-4) % Baso % (Auto) 1.5 (0-2) % Neut # (Auto) 2500 (9153-5099) /uL Lymph # (Auto) 1600 (2397-8229) /uL [place] # (Auto) 500 (0-900) /uL Eos # (Auto) 0 (0-450) /uL Baso # (Auto) 100 (0-100) /uL Sodium 140 (137-145) mmol/L Potassium 4.0 (3.4-5.1) mmol/L Chloride 104 (98-107) mmol/L Carbon Dioxide 26 (22-32) mmol/L BUN 12 (9-20) mg/dL Creatinine 0.78 (0.66-1.25) mg/dL Estimated GFR > 60 (>60) mL/min BUN/Creatinine Ratio 15.4 (6-22) Glucose 107 H (70-100) mg/dL Calcium 9.0 (8.4-10.2) mg/dL Total Bilirubin 0.6 (0.2-1.3) mg/dL AST 57 (17-59) IU/L ALT 36 (<50) IU/L Alkaline Phosphatase 59 (38-126) U/L Total Protein 7.8 (6.3-8.2) g/dL Albumin 4.3 (3.5-5.0) g/dL Globulin 3.5 (1.7-4.1) g/dL Albumin/Globulin Ratio 1.2 (1.0-2.8) TSH 1.62 (0.47-4.68) uIU/mL Free T4 0.76 L (0.78-2.19) ng/dL Salicylates < 1.0 (<20) mg/dL U Opiates 300ng/mL cut Negative (Negative) Ur Oxycodone Screen Negative (Negative) Urine Methadone Screen Negative (Negative) Acetaminophen < 10 (10-30) ug/mL Ur Barbiturates Screen Negative (Negative) U Tricyclic Antidepress Negative (Negative) Ur Phencyclidine Scrn Negative (Negative) Ur Amphetamines Screen Negative (Negative) U Methamphetamines Scrn Negative (Negative) Ur MDMA Scrn (Ecstasy) Negative (Negative) U Benzodiazepines Scrn Positive H (Negative) Urine Cocaine Screen Negative (Negative) U Marijuana (THC) Screen Negative (Negative) Urine pH Normal (Normal) Urine Specific [place] Normal (Normal) Ethyl Alcohol 317 H 256 H ( - 10) mg/dL Ur Creatinine Normal (Normal) Urine Dip Bedside Urine Glucose Negative Bedside Urine Bilirubin - Negative Bedside Urine Ketone - Negative Urine Specific [place] 1.010 Bedside Urine Occult Blood - Negative Bedside Urine pH 6.5 Bedside Urine Protein - Negative Bedside Urine Urobilinogen - Negative Bedside Urine Nitrite - Negative Bedside Urine Leukocytes - Negative Esterase MDM Narrative Medical decision making narrative: Patient 33-year-old male with known alcohol abuse presenting today with alcohol intoxication wanting detox. Arm he has not aggressive but not redirectable unsteady on his feet fear that he will fall down if he continues to ambulate. He was given phenobarbital which did not quite sedate him. He then got up from the bed and was holding on to the door very clearly unsteady multiple people tried redirecting him and getting him into bed. Ultimately we did. At that time he was given Haldol and Benadryl for alcohol withdrawal and danger for himself. Did not want EPS symptoms with the Haldol Benadryl was given as well. Patient sleeping. Alcohol level is quite high unable to participate for interview for detox but he is willing and wanting to go. He has expresses to me yesterday as well. Other blood work has been reviewed no leukocytosis no anemia normal platelets electrolytes stable normal creatinine no evidence of pancreatitis Urine drug screen positive for benzodiazepine which I gave him yesterday Awaiting for patient to wake up and cooperate for detox <Aleida Cristobal, - Last Filed: 10/27/23 02:53> Lab Data Labs: Lab Results 10/26/23 10/26/23 10/26/23 Range/Units 12:09 12:30 16:27 WBC 4.7 (4.5-11.0) X10^3/uL RBC 4.38 L (4.5-5.9) X10^6/uL Hgb 13.7 (13.5-17.5) g/dL Hct 39.8 L (41-53) % MCV 90.8 (80-100) fL MCH 31.3 (26-34) PG MCHC 34.5 (30-36) % RDW 13.5 (11.6-14.8) % Plt Count 310 (150-400) X10^3/uL Neut % (Auto) 54.0 (50-75) % Lymph % (Auto) 34.6 (25-40) % Ball[place] % (Auto) 9.7 (3-14) % Eos % (Auto) 0.2 L (2-4) % Baso % (Auto) 1.5 (0-2) % Neut # (Auto) 2500 (0590-8524) /uL Lymph # (Auto) 1600 (1568-0492) /uL [place] # (Auto) 500 (0-900) /uL Eos # (Auto) 0 (0-450) /uL Baso # (Auto) 100 (0-100) /uL Sodium 140 (137-145) mmol/L Potassium 4.0 (3.4-5.1) mmol/L Chloride 104 (98-107) mmol/L Carbon Dioxide 26 (22-32) mmol/L BUN 12 (9-20) mg/dL Creatinine 0.78 (0.66-1.25) mg/dL Estimated GFR > 60 (>60) mL/min BUN/Creatinine Ratio 15.4 (6-22) Glucose 107 H (70-100) mg/dL Calcium 9.0 (8.4-10.2) mg/dL Total Bilirubin 0.6 (0.2-1.3) mg/dL AST 57 (17-59) IU/L ALT 36 (<50) IU/L Alkaline Phosphatase 59 (38-126) U/L Total Protein 7.8 (6.3-8.2) g/dL Albumin 4.3 (3.5-5.0) g/dL Globulin 3.5 (1.7-4.1) g/dL Albumin/Globulin Ratio 1.2 (1.0-2.8) TSH 1.62 (0.47-4.68) uIU/mL Free T4 0.76 L (0.78-2.19) ng/dL Salicylates < 1.0 (<20) mg/dL U Opiates 300ng/mL cut Negative (Negative) Ur Oxycodone Screen Negative (Negative) Urine Methadone Screen Negative (Negative) Acetaminophen < 10 (10-30) ug/mL Ur Barbiturates Screen Negative (Negative) U Tricyclic Antidepress Negative (Negative) Ur Phencyclidine Scrn Negative (Negative) Ur Amphetamines Screen Negative (Negative) U Methamphetamines Scrn Negative (Negative) Ur MDMA Scrn (Ecstasy) Negative (Negative) U Benzodiazepines Scrn Positive H (Negative) Urine Cocaine Screen Negative (Negative) U Marijuana (THC) Screen Negative (Negative) Urine pH Normal (Normal) Urine Specific [place] Normal (Normal) Ethyl Alcohol 317 H 256 H ( - 10) mg/dL Ur Creatinine Normal (Normal) Urine Dip Bedside Urine Glucose Negative Bedside Urine Bilirubin - Negative Bedside Urine Ketone - Negative Urine Specific [place] 1.010 Bedside Urine Occult Blood - Negative Bedside Urine pH 6.5 Bedside Urine Protein - Negative Bedside Urine Urobilinogen - Negative Bedside Urine Nitrite - Negative Bedside Urine Leukocytes - Negative Esterase MDM Narrative Medical decision making narrative: Patient 33-year-old male with known alcohol abuse presenting today with alcohol intoxication wanting detox. Arm he has not aggressive but not redirectable unsteady on his feet fear that he will fall down if he continues to ambulate. He was given phenobarbital which did not quite sedate him. He then got up from the bed and was holding on to the door very clearly unsteady multiple people tried redirecting him and getting him into bed. Ultimately we did. At that time he was given Haldol and Benadryl for alcohol withdrawal and danger for himself. Did not want EPS symptoms with the Haldol Benadryl was given as well. Patient sleeping. Alcohol level is quite high unable to participate for interview for detox but he is willing and wanting to go. He has expresses to me yesterday as well. Other blood work has been reviewed no leukocytosis no anemia normal platelets electrolytes stable normal creatinine no evidence of pancreatitis Urine drug screen positive for benzodiazepine which I gave him yesterday Awaiting for patient to wake up and cooperate for detox 10/26/23 Dr. Cristobal: Patient signed out to myself. Patient had multiple medications and ultimately required some medication. Has a history of alcohol withdrawal but was intoxicated at this time. Has a expressed interest in detox. Waiting for patient to metabolize medications and then will re-evaluate to see if patient wishes for detox. From lab perspective he is medically cleared. Patient was seen and evaluated by myself. He was sleeping currently has had overall appropriate vitals. 2123: Patient is awake, conversant, he would like to return home, slightly tachycardic but otherwise appropriate vitals. Patient was not interested in detox today. He is otherwise medically cleared and felt appropriate for discharge. Discharge Plan Departure Patient Disposition: Home Clinical Impression: Alcohol intoxication Activity Restrictions/Additional Instructions: Follow-up as needed, recommended that he pursue alcohol cessation with detox you can return at any time if you would like assistance with placement. You can also call to set up detox herself as an outpatient. Do not take the chlordiazepoxide or Librium when you are drinking. Please return if you have any other new or concerning changes. Prescriptions: No Action bupropion HCl 300 mg tablet extended release 24 hr 300 mg PO DAILY hydroxyzine pamoate 50 mg capsule 50 mg PO 3XD lidocaine 5 % adhesive patch,medicated 1 patch topical DAILY Qty: 15 0RF Rx Instructions: leave on most painful area for up to 12 hrs dextroamphetamine-amphetamine 20 mg capsule,extended release 24hr See Rx Instructions .ROUTE .COMPLEX Qty: 90 0RF Rx Instructions: 40 mg (2 caps) PO QAM and 20 mg (1 cap) PO Q Noon dextroamphetamine-amphetamine 20 mg capsule,extended release 24hr See Rx Instructions .ROUTE .COMPLEX Qty: 90 0RF Rx Instructions: 40 mg (2 caps) PO QAM and 20 mg (1 cap) PO Q Noon; dextroamphetamine-amphetamine 20 mg capsule,extended release 24hr See Rx Instructions .ROUTE .COMPLEX Qty: 90 0RF Rx Instructions: 40 mg (2 tabs) PO QAM and 20 mg (1 tab) PO QNoon; acetaminophen [Tylenol Extra Strength] 500 mg tablet 1,000 mg PO Q6H PRN Excedrin Extra Strength 250-250-65 mg tablet 1 tab PO Q4-6H PRN chlordiazepoxide HCl 25 mg capsule 25 mg PO QID Qty: 12 0RF Rx Instructions: until symptoms controlled lorazepam 1 mg tablet 1 mg PO TID Qty: 6 0RF Rx Instructions: Day 1 1 tablet 3 times a day, Day 2 1 tablet twice a day, Day 3 1 tablet chlordiazepoxide HCl 25 mg capsule 25 mg PO QID Qty: 12 0RF Referrals: Dagoberto Marie DO [Primary Care Provider] - Stand Alone Forms: Patient Portal/API
[2023-10-26] MEDS: LORazepam 2 MG/ML INJ IV (14:45)
[2023-10-26 15:05] LABS: Free T4, Direct Thyroxine 0.76 ng/dL (0.78-2.19)
[2023-10-26 17:03] LABS: Ethanol (ETOH) 256 mg/dL
--- NOTE | 2023-10-26 17:20 | PC.NURSE ---
patient is resting at this time of assessment with eyes closed, respirations are even
--- NOTE | 2023-10-26 21:14 | PC.NURSE ---
Patient does not want to go to detox, patient wants to leave patient reports that they want to go home and detox there. patient does not have a ride home but says they can walk. This RN told the patient that they need either a taxi or a ride to be able to leave, the patient asked well couldnt i just walk out and leave?.
== END 2023-10-26 21:55 | disposition home or self-care (01) ==
PROVIDERS: Emergency Medicine; Emergency Provider Emergency Medicine; PCP Family Medicine
DX: F10.129 Alcohol abuse with intoxication, unspecified (principal); Y90.8 Blood alcohol level of 240 mg/100 ml or more
CPT/HCPCS: 36415; 80053; 80305; 80320; 80329; 81003; 84439; 84443; 85025; 96365; 96375; 99284; G0480; J1200; J1630; J2060; J2560

== ENCOUNTER 2023-10-28 15:48 | Emergency (ER) | payer OTHER, MEDICAID, SELFPAY ==
--- NOTE | 2023-10-28 15:54 | ED.ALCOHOL ---
HPI - Alcohol General Chief Complaint: Toxicology Problem Stated Complaint: ETOH Time Seen by Provider: 10/28/23 15:49 History of Present Illness HPI narrative: 33-year-old male with history of alcohol abuse presents intoxicated. Patient states that he was dropped off by his ex-girlfriend for being drunk. Other history limited as patient is severely intoxicated and severely slurring his words. He was able to communicate that he has fallen ?a bunch of times?. Related Data Home Medications Medication Instructions Recorded Confirmed acetaminophen 500 mg tablet 1,000 mg PO Q6H PRN 07/26/18 03/06/23 (Tylenol Extra Strength) dzuaaqn-psmuylrqimlfv-lpzadetb 250 1 tab PO Q4-6H PRN 07/26/18 03/06/23 mg-250 mg-65 mg tablet (Excedrin Extra Strength) bupropion HCl 300 mg 24 hr tablet, 300 mg PO DAILY 03/06/23 03/06/23 extended release hydroxyzine pamoate 50 mg capsule 50 mg PO 3XD 03/06/23 03/06/23 Previous Rx's Medication Instructions Recorded dextroamphetamine-amphetamine ER See Rx Instructions .Route 05/30/22 20 mg 24hr capsule,extend release .COMPLEX #90 caps dextroamphetamine-amphetamine ER See Rx Instructions .Route 05/30/22 20 mg 24hr capsule,extend release .COMPLEX #90 caps dextroamphetamine-amphetamine ER See Rx Instructions .Route 09/18/22 20 mg 24hr capsule,extend release .COMPLEX #90 caps lidocaine 5 % topical patch 1 patch topical DAILY #15 ea 03/06/23 lorazepam 1 mg tablet 1 mg PO TID #6 tabs 07/22/23 chlordiazepoxide HCl 25 mg capsule 25 mg PO QID #12 caps 09/12/23 chlordiazepoxide HCl 25 mg capsule 25 mg PO QID 12 doses #12 caps 10/25/23 Allergies Allergy/AdvReac Type Severity Reaction Status Date / Time bupropion [From Wellbutrin] Allergy Mild Anxiety Verified 09/12/23 08:26 Patient History Medical History (Updated 10/28/23 @ 17:19 by Aleida Garcia MD) History of pancreatitis Anxiety Tachycardia Cocaine abuse Alcohol abuse Alcoholism Social History Smoking Status: Current some day smoker Tobacco: How many years used: 10 quit status: not considering quitting second hand exposure: No alcohol intake: current substance use type: does not use Smoking Status: Current some day smoker alcohol intake frequency: 3 or more drinks per day Alcohol type: beer, wine and hard liquor Substance Use Type: former substance user and crack/cocaine Exam Initial Vital Signs Initial Vital Signs: Vital Signs Temperature 98.1 F 10/28/23 16:01 Pulse Rate 100 H 10/28/23 16:01 Respiratory Rate 16 10/28/23 16:01 Blood Pressure 145/96 H 10/28/23 16:01 Pulse Oximetry 99 10/28/23 16:01 Oxygen Delivery Method Room Air 10/28/23 16:01 Const: Awake, alert, intoxicated Cardiac: regular rate, regular rhythm RESP: unlabored, clear bilaterally, no wheezing Skin: Warm, Dry, intact, no rashes Neuro: AO x2, slurred speech, CN II-XII grossly intact, moves all extremities Course Orders Ordered: ED Orders 10/28/23 15:58 CT head/brain wo con Stat Urine Drug Screen, Rapid Stat 10/28/23 16:10 Acetaminophen Stat CBC Auto Diff [Complete Blood Count AUTO DIFF] Stat CMP [Comprehensive Metabolic Panel] Stat Ethanol (ETOH) Stat Salicylate Stat Discontinued Medications Folic Acid (Folic Acid 1 Mg Tablet) 1 mg PO NOW ONE Stop: 10/28/23 15:58 Last Admin: 10/28/23 16:25 Dose: 1 mg Documented By: REJI Thiamine HCl 200 mg/ Sodium (Chloride) 102 mls @ 408 mls/hr IV NOW ONE Stop: 10/28/23 15:58 Last Infusion: 10/28/23 16:41 Dose: Infused Documented By: Admin: 10/28/23 16:24 Dose: 408 mls/hr Documented By: REJI Vital Signs Vital signs: Vital Signs - 8 hr 10/28/23 16:01 Temperature 98.1 F Pulse Rate 100 H Respiratory Rate 16 Blood Pressure 145/96 H Pulse Oximetry 99 Oxygen Delivery Method Room Air MDM - Alcohol Differential Diagnosis Differential diagnosis: Likely alcohol intoxication, alcohol ketoacidosis and other (Subdural hematoma) Lab Data 10/28/23 16:10 10/28/23 16:10 Labs: Lab Results 10/28/23 Range/Units 16:10 WBC 4.5 (4.5-11.0) X10^3/uL RBC 4.65 (4.5-5.9) X10^6/uL Hgb 14.7 (13.5-17.5) g/dL Hct 42.4 (41-53) % MCV 91.0 (80-100) fL MCH 31.5 (26-34) PG MCHC 34.6 (30-36) % RDW 13.7 (11.6-14.8) % Plt Count 292 (150-400) X10^3/uL Neut % (Auto) 56.6 (50-75) % Lymph % (Auto) 38.0 (25-40) % [place] % (Auto) 4.2 (3-14) % Eos % (Auto) 0.1 L (2-4) % Baso % (Auto) 1.1 (0-2) % Neut # (Auto) 2500 (4974-5868) /uL Lymph # (Auto) 1700 (2388-6284) /uL [place] # (Auto) 200 (0-900) /uL Eos # (Auto) 0 (0-450) /uL Baso # (Auto) 100 (0-100) /uL Sodium 144 (137-145) mmol/L Potassium 4.1 (3.4-5.1) mmol/L Chloride 107 (98-107) mmol/L Carbon Dioxide 24 (22-32) mmol/L BUN 12 (9-20) mg/dL Creatinine 0.89 (0.66-1.25) mg/dL Estimated GFR > 60 (>60) mL/min BUN/Creatinine Ratio 13.5 (6-22) Glucose 105 H (70-100) mg/dL Calcium 9.1 (8.4-10.2) mg/dL Total Bilirubin 0.9 (0.2-1.3) mg/dL AST 45 (17-59) IU/L ALT 37 (<50) IU/L Alkaline Phosphatase 59 (38-126) U/L Total Protein 7.8 (6.3-8.2) g/dL Albumin 4.4 (3.5-5.0) g/dL Globulin 3.4 (1.7-4.1) g/dL Albumin/Globulin Ratio 1.3 (1.0-2.8) Salicylates < 1.0 (<20) mg/dL Acetaminophen < 10 (10-30) ug/mL Ethyl Alcohol 360 H ( - 10) mg/dL Imaging Data CT scan - head: Radiologist's Impressoin: PROCEDURE: CT HEAD/BRAIN WO CON INDICATIONS: etoh, multiple falls TECHNIQUE: Noncontrast 4.5 mm thick angled axial sections acquired from the foramen magnum to the vertex, with coronal and sagittal reformats. For radiation dose reduction, the following was used: automated exposure control, adjustment of mA and/or kV according to patient size. COMPARISON: [facility], CT, CT HEAD/BRAIN WO CON, 11/22/2019, 14:53. FINDINGS: Image quality: Diagnostic. CSF spaces: Basal cisterns are patent. No extra-axial fluid collections. Ventricles are normal in size and shape. Brain: No midline shift. No intracranial masses or hemorrhage. Paulino-white matter interface is normal. Skull and face: Calvarium and visualized facial bones are intact, without suspicious lesions. Sinuses: Mucosal thickening of the bilateral maxillary sinuses. Visualized mastoids are clear. IMPRESSION: No acute intracranial pathology. No acute calvarial fractures. Dictated by: Cricket Reynolds M.D. on 10/28/2023 at 15:31 Approved by: Cricket Reynolds M.D. on 10/28/2023 at 15:32 MDM Narrative Medical decision making narrative: Patient presenting for alcohol intoxication, brought in by ex girlfriend. Slurring. Able to communicate that he does not want to go to detox. Seen here 2 times in the last week for alcohol related complaints. Thiamine, folic acid ordered. Labs reviewed, patient has elevated alcohol level, no other significant abnormalities identified. Patient was now becoming more belligerent, needing to be redirected multiple times to get back into bed. Patient was requesting to leave, he again states that he was not want to go to detox. He was requesting that we contact his ex-girlfriend to pick him up.. Patient's ex-girlfriend Ashia has arrived to pick patient up. She states that she will look out for him at home. Patient declined resources stating that he has detoxed in the past and knows where to go. Discharge Plan Departure Patient Disposition: Home Clinical Impression: Alcohol intoxication Prescriptions: No Action bupropion HCl 300 mg tablet extended release 24 hr 300 mg PO DAILY hydroxyzine pamoate 50 mg capsule 50 mg PO 3XD lidocaine 5 % adhesive patch,medicated 1 patch topical DAILY Qty: 15 0RF Rx Instructions: leave on most painful area for up to 12 hrs dextroamphetamine-amphetamine 20 mg capsule,extended release 24hr See Rx Instructions .ROUTE .COMPLEX Qty: 90 0RF Rx Instructions: 40 mg (2 caps) PO QAM and 20 mg (1 cap) PO Q Noon dextroamphetamine-amphetamine 20 mg capsule,extended release 24hr See Rx Instructions .ROUTE .COMPLEX Qty: 90 0RF Rx Instructions: 40 mg (2 caps) PO QAM and 20 mg (1 cap) PO Q Noon; dextroamphetamine-amphetamine 20 mg capsule,extended release 24hr See Rx Instructions .ROUTE .COMPLEX Qty: 90 0RF Rx Instructions: 40 mg (2 tabs) PO QAM and 20 mg (1 tab) PO QNoon; acetaminophen [Tylenol Extra Strength] 500 mg tablet 1,000 mg PO Q6H PRN Excedrin Extra Strength 250-250-65 mg tablet 1 tab PO Q4-6H PRN chlordiazepoxide HCl 25 mg capsule 25 mg PO QID Qty: 12 0RF Rx Instructions: until symptoms controlled lorazepam 1 mg tablet 1 mg PO TID Qty: 6 0RF Rx Instructions: Day 1 1 tablet 3 times a day, Day 2 1 tablet twice a day, Day 3 1 tablet chlordiazepoxide HCl 25 mg capsule 25 mg PO QID Qty: 12 0RF Referrals: Dagoberto Marie DO [Primary Care Provider] - Stand Alone Forms: Patient Portal/API
--- NOTE | 2023-10-28 15:58 | DI.CT.S_ITS ---
PROCEDURE: CT HEAD/BRAIN WO CON INDICATIONS: etoh, multiple falls TECHNIQUE: Noncontrast 4.5 mm thick angled axial sections acquired from the foramen magnum to the vertex, with coronal and sagittal reformats. For radiation dose reduction, the following was used: automated exposure control, adjustment of mA and/or kV according to patient size. COMPARISON: [facility], CT, CT HEAD/BRAIN WO CON, 11/22/2019, 14:53. FINDINGS: Image quality: Diagnostic. CSF spaces: Basal cisterns are patent. No extra-axial fluid collections. Ventricles are normal in size and shape. Brain: No midline shift. No intracranial masses or hemorrhage. Paulino-white matter interface is normal. Skull and face: Calvarium and visualized facial bones are intact, without suspicious lesions. Sinuses: Mucosal thickening of the bilateral maxillary sinuses. Visualized mastoids are clear. IMPRESSION: No acute intracranial pathology. No acute calvarial fractures. Dictated by: Cricket Reynolds M.D. on 10/28/2023 at 15:31 Approved by: Cricket Reynolds M.D. on 10/28/2023 at 15:32
[2023-10-28 16:01] VITALS: BP 145/96; PULSE 100; RESP 16; TEMP 36.7; O2SAT 99; BMI 26.9
[2023-10-28 16:13] LABS: Add Manual Diff / Slide Review NO; Basophils Absolute Auto 100 /uL (0-100); Basophils Percent Auto 1.1 % (0-2); Eosinophils Absolute Auto 0 /uL (0-450); Eosinophils Percent Auto 0.1 % (2-4); Hematocrit 42.4 % (41-53); Hemoglobin 14.7 g/dL (13.5-17.5); Lymphocytes Absolute Auto 1700 /uL (1100-4500); Mean Corpuscular HGB Conc 34.6 % (30-36); Mean Corpuscular Hemoglobin 31.5 PG (26-34); Monocytes Absolute Auto 200 /uL (0-900); Monocytes Percent Auto 4.2 % (3-14); Neutrophils Absolute Auto 2500 /uL (1500-7000); Neutrophils Percent Auto 56.6 % (50-75); Platelet Count 292 X10^3/uL (150-400); Red Blood Cell Count 4.65 X10^6/uL (4.5-5.9); Red Cell Distribution Width 13.7 % (11.6-14.8); White Blood Cell Count 4.5 X10^3/uL (4.5-11.0)
[2023-10-28] MEDS: THIAMINE 200 MG in SODIUM CHLORIDE 0.9% 100 ML 408 MG IV (16:24)
[2023-10-28] MEDS: FOLIC ACID 1 MG TABLET PO (16:25)
[2023-10-28 16:26] LABS: Acetaminophen < 10 ug/mL (10-30); Salicylate < 1.0 mg/dL (<20)
[2023-10-28 16:27] LABS: Alanine Aminotransferase 37 IU/L (<50); Albumin 4.4 g/dL (3.5-5.0); Albumin Globulin Ratio 1.3 (1.0-2.8); Alkaline Phosphatase 59 U/L (38-126); Aspartate Aminotransferase 45 IU/L (17-59); BUN Creatinine Ratio 13.5 (6-22); Bilirubin Total 0.9 mg/dL (0.2-1.3); Blood Urea Nitrogen 12 mg/dL (9-20); Calcium 9.1 mg/dL (8.4-10.2); Carbon Dioxide 24 mmol/L (22-32); Chloride 107 mmol/L (98-107); Estimated Glomerular Filt Rate > 60 mL/min (>60); Globulin 3.4 g/dL (1.7-4.1); Glucose 105 mg/dL (70-100); HEMOLYSIS < 15 (0-50); Potassium 4.1 mmol/L (3.4-5.1); Sodium 144 mmol/L (137-145); Total Protein 7.8 g/dL (6.3-8.2)
[2023-10-28 16:34] LABS: Ethanol (ETOH) 360 mg/dL
--- NOTE | 2023-10-28 16:36 | PC.NURSE ---
Pt arrived to ED today via private vehicle for severe ETOH intoxication. Pt states that his ex girlfriend dropped him off and that he fell down a bunch of times today. Small abrasion noted on right side of forehead. Denies any pain and LOC. Pt slurring speech, anxious and very tearful. Pt unable to speak in coherent sentences due to high level of intoxication. Dr Garcia at bedside during triage.
--- NOTE | 2023-10-28 16:57 | PC.NURSE ---
Pt agitated and belligerent. Girlfriend, Jessy, arrived for ride. Pt taken out of ED in wheelchair to vehicle.
== END 2023-10-28 17:03 | disposition home or self-care (01) ==
PROVIDERS: Emergency Provider Emergency Medicine; PCP Family Medicine
DX: F10.129 Alcohol abuse with intoxication, unspecified (principal); Y90.8 Blood alcohol level of 240 mg/100 ml or more; R29.6 Repeated falls; S00.81XA Abrasion of other part of head, initial encounter
CPT/HCPCS: 36415; 70450; 80053; 80320; 80329; 85025; 96365; 99284; G0480

== ENCOUNTER 2023-10-29 09:04 | Emergency (ER) | payer OTHER, MEDICAID, SELFPAY ==
[2023-10-29 09:20] VITALS: O2SAT 93
[2023-10-29 09:21] VITALS: BP 141/100
[2023-10-29 09:23] VITALS: BP 141/100; PULSE 103; RESP 20; TEMP 36.8; O2SAT 99; BMI 27.3
--- NOTE | 2023-10-29 09:28 | PC.NURSE ---
Pt requesting something to hold me over until he can go to detox. reports his mother is taking him to detox today. Pt states he does not have a bed yet but im trying to get one. Advised that we can help provide medical clearance to help get him into a detox facility, which he is refusing. States i just need something right now and then i promise i will go to detox Dr Morales in room to assess.
--- NOTE | 2023-10-29 09:29 | ED_ITS ---
HPI - Alcohol General Chief Complaint: Toxicology Problem Stated Complaint: Needs a shot for detox Time Seen by Provider: 10/29/23 09:15 Source: patient History of Present Illness HPI narrative: Patient 33-year-old male with past medical history of alcohol abuse comes into the ED for evaluation detox. He states that he is done with drinking, states that he has been drinking a 5th of whiskey daily for the past several years, states that he has been here multiple times for alcohol withdrawal and states that he wants to go to detox now. States that he just wants a ?shot or medicine to get him to the detox program. He states that he is mother is on the way to the [place] to bring him to a detox center. He states he last drank at around 9:00 p.m. yesterday drank beer. He states that he did have 1 episode of emesis but denies any other symptoms. He demarcus any SI HI Related Data Home Medications Medication Instructions Recorded Confirmed acetaminophen 500 mg tablet 1,000 mg PO Q6H PRN 07/26/18 03/06/23 (Tylenol Extra Strength) bamnchu-rgpfcdbouddqe-eugmaybc 250 1 tab PO Q4-6H PRN 07/26/18 03/06/23 mg-250 mg-65 mg tablet (Excedrin Extra Strength) bupropion HCl 300 mg 24 hr tablet, 300 mg PO DAILY 03/06/23 03/06/23 extended release hydroxyzine pamoate 50 mg capsule 50 mg PO 3XD 03/06/23 03/06/23 Previous Rx's Medication Instructions Recorded dextroamphetamine-amphetamine ER See Rx Instructions .Route 05/30/22 20 mg 24hr capsule,extend release .COMPLEX #90 caps dextroamphetamine-amphetamine ER See Rx Instructions .Route 05/30/22 20 mg 24hr capsule,extend release .COMPLEX #90 caps dextroamphetamine-amphetamine ER See Rx Instructions .Route 09/18/22 20 mg 24hr capsule,extend release .COMPLEX #90 caps lidocaine 5 % topical patch 1 patch topical DAILY #15 ea 03/06/23 lorazepam 1 mg tablet 1 mg PO TID #6 tabs 07/22/23 chlordiazepoxide HCl 25 mg capsule 25 mg PO QID #12 caps 09/12/23 chlordiazepoxide HCl 25 mg capsule 25 mg PO QID 12 doses #12 caps 10/25/23 hydroxyzine HCl 25 mg tablet 25 mg PO BID PRN nausea and 10/29/23 vomiting 5 days #10 tabs Allergies Allergy/AdvReac Type Severity Reaction Status Date / Time bupropion [From Wellbutrin] Allergy Mild Anxiety Verified 09/12/23 08:26 Review of Systems Review of Systems Narrative: HEENT: Denies headache, eye drainage, eye irritation, head trauma, sore throat, voice change, Cardiovascular: Denies any chest pain, palpitations, shortness of breath, tachycardia Respiratory: Denies any shortness of breath, cough, wheeze, stridor GI/: Denies any abdominal pain, nausea, vomiting, diarrhea, bright red blood per rectum, melanotic stools, urinary frequency, urinary retention, dysuria, hematuria MSK: Denies any joint pain, muscle pains, swelling Skin: Denies any rashes, lesions, discoloration Neuro: Denies any headache, lightheadedness, dizziness, fainting, weakness Psych: Denies SI/HI Patient History Medical History (Updated 10/29/23 @ 09:29 by Anson Mccallum DO) History of pancreatitis Anxiety Tachycardia Cocaine abuse Alcohol abuse Alcoholism Social History Smoking Status: Current some day smoker Tobacco: How many years used: 10 quit status: not considering quitting second hand exposure: No alcohol intake: current substance use type: does not use Smoking Status: Current some day smoker alcohol intake frequency: 3 or more drinks per day Alcohol type: beer, wine and hard liquor Substance Use Type: former substance user and crack/cocaine Exam Narrative Exam Narrative: General: Cooperative, comfortable, well-developed, not in acute distress HEENT: Normocephalic, atraumatic, PERRLA, normal sclera, eyelids normal, Neck: Active full range of motion, atraumatic Chest: Normal to inspection, negative crepitus, no overlying erythema ecchymosis Respiratory: Normal respiratory effort, not in acute respiratory distress, clear to auscultation bilaterally negative cough, wheeze, tachypnea, rhonchi, rales Cardiology: Regular rate rhythm negative gallop, murmur, rubs GI/: Normal to inspection, soft, nonrigid, no tenderness to palpation, exam deferred MSK: Full range of active range of motion of all 4 extremities, atraumatic Skin: No rashes lesions noted Neuro: Alert awake oriented x3, moves all 4 extremities spontaneously, cranial nerves intact, able to answer all questions appropriately follows commands appropriately Psych: Cooperative, negative suicidal or homicidal ideations Initial Vital Signs Initial Vital Signs: Vital Signs Temperature 98.3 F 10/29/23 09:23 Pulse Rate 103 H 10/29/23 09:23 Respiratory Rate 20 10/29/23 09:23 Blood Pressure 141/100 H 10/29/23 09:23 Pulse Oximetry 99 10/29/23 09:23 Oxygen Delivery Method Room Air 10/29/23 09:23 Course Orders Ordered: Discontinued Medications Hydroxyzine HCl (Hydroxyzine Hcl 25 Mg Tablet) 50 mg PO NOW ONE Stop: 10/29/23 09:27 Vital Signs Vital signs: Vital Signs - 8 hr 10/29/23 09:23 Temperature 98.3 F Pulse Rate 103 H Respiratory Rate 20 Blood Pressure 141/100 H Pulse Oximetry 99 Oxygen Delivery Method Room Air MDM - Alcohol Differential Diagnosis Differential diagnosis: Likely alcohol intoxication Condition is:: Improved Medical Records Attestation: I reviewed the patient's medical records. [facility] Narrative Medical decision making narrative: Patient is a 33-year-old male with history of alcohol abuse, has been seen here multiple times in the past for alcohol withdrawal/detox. Has been sent home previously with [facility] however he admits to drinking with this. He states that he is only here to get a ?shot or meds to hold him down to get a detox. Patient had evaluation low CIWA score, patient without any other symptoms mother is on the way to bring him to detox patient will be safe for discharge to home/detox program. Discharge Plan Departure Patient Disposition: Home Clinical Impression: Alcohol intoxication Activity Restrictions/Additional Instructions: Please read the discharge instructions sheet carefully and bring all papers to all doctor follow-up visits, as it may contain information that your doctor may want to see. Disease processes change and evolve, if your symptoms worsen or if you develop any new symptoms that are concerning to you please return for evaluation. Your evaluation today does not show any evidence of any life- threatening/serious illnesses requiring admission to the hospital or surgery. Please follow-up with your doctor for re-evaluation in approximately 1 day. Seek immediate medical attention for any worrisome symptoms. Prescriptions: New hydroxyzine HCl 25 mg tablet 25 mg PO BID PRN (Reason: nausea and vomiting) 5 Days Qty: 10 0RF No Action bupropion HCl 300 mg tablet extended release 24 hr 300 mg PO DAILY hydroxyzine pamoate 50 mg capsule 50 mg PO 3XD lidocaine 5 % adhesive patch,medicated 1 patch topical DAILY Qty: 15 0RF Rx Instructions: leave on most painful area for up to 12 hrs dextroamphetamine-amphetamine 20 mg capsule,extended release 24hr See Rx Instructions .ROUTE .COMPLEX Qty: 90 0RF Rx Instructions: 40 mg (2 caps) PO QAM and 20 mg (1 cap) PO Q Noon dextroamphetamine-amphetamine 20 mg capsule,extended release 24hr See Rx Instructions .ROUTE .COMPLEX Qty: 90 0RF Rx Instructions: 40 mg (2 caps) PO QAM and 20 mg (1 cap) PO Q Noon; dextroamphetamine-amphetamine 20 mg capsule,extended release 24hr See Rx Instructions .ROUTE .COMPLEX Qty: 90 0RF Rx Instructions: 40 mg (2 tabs) PO QAM and 20 mg (1 tab) PO QNoon; acetaminophen [Tylenol Extra Strength] 500 mg tablet 1,000 mg PO Q6H PRN Excedrin Extra Strength 250-250-65 mg tablet 1 tab PO Q4-6H PRN chlordiazepoxide HCl 25 mg capsule 25 mg PO QID Qty: 12 0RF Rx Instructions: until symptoms controlled lorazepam 1 mg tablet 1 mg PO TID Qty: 6 0RF Rx Instructions: Day 1 1 tablet 3 times a day, Day 2 1 tablet twice a day, Day 3 1 tablet chlordiazepoxide HCl 25 mg capsule 25 mg PO QID Qty: 12 0RF Referrals: Dagoberto Marie DO [Primary Care Provider] - Stand Alone Forms: Patient Portal/API
[2023-10-29] MEDS: hydrOXYzine HCL 25 MG TABLET 50 MG PO (09:33)
--- NOTE | 2023-10-29 09:38 | PC.NURSE ---
Since pt is refusing medical clearance by ER, given phone number for [facility] in [place] to inquire about bed availability.
== END 2023-10-29 09:40 | disposition home or self-care (01) ==
PROVIDERS: Emergency Provider Student in an Organized Health Care Education/Training Program; PCP Family Medicine
DX: F10.129 Alcohol abuse with intoxication, unspecified (principal)
CPT/HCPCS: 99283; A9270

== ENCOUNTER 2023-12-16 07:50 | Emergency (ER) | payer OTHER, MEDICAID, SELFPAY ==
[2023-12-16 07:58] VITALS: BP 150/106; PULSE 103; O2SAT 96
[2023-12-16 08:00] VITALS: PULSE 103; O2SAT 96
[2023-12-16 08:09] VITALS: BP 150/106; PULSE 109; RESP 20; TEMP 37; O2SAT 96; BMI 28.0
--- NOTE | 2023-12-16 08:24 | ED.RECABL ---
HPI - Recheck/Abnormal Lab/Rx General Chief Complaint: Recheck/Abnormal Lab/Rx Stated Complaint: craving issues/ doesnt want to do anything bad Time Seen by Provider: 12/16/23 08:24 Source: patient Mode of arrival: Family Vehicle History of Present Illness HPI narrative: Patient is a 33-year-old male who struggles with all alcohol addiction and substance abuse has been to the ED multiple times with alcohol intoxication. 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 He does not want to start drinking again he is having some cravings wanting some Suboxone. He sees the physician tomorrow. Due to an emergency with a doctor he was unable to see her last week. He reports significant improvement in his life he has a job he has been sober the whole time he is enjoying it and he is trying very hard to stay sober. Related Data Home Medications Medication Instructions Recorded Confirmed acetaminophen 500 mg tablet 1,000 mg PO Q6H PRN 07/26/18 03/06/23 (Tylenol Extra Strength) [id number]-[id number]-[id number] 250 1 tab PO Q4-6H PRN 07/26/18 03/06/23 mg-250 mg-65 mg tablet (Excedrin Extra Strength) bupropion HCl 300 mg 24 hr tablet, 300 mg PO DAILY 03/06/23 03/06/23 extended release hydroxyzine pamoate 50 mg capsule 50 mg PO 3XD 03/06/23 03/06/23 Previous Rx's Medication Instructions Recorded dextroamphetamine-amphetamine ER See Rx Instructions .Route 05/30/22 20 mg 24hr capsule,extend release .COMPLEX #90 caps dextroamphetamine-amphetamine ER See Rx Instructions .Route 05/30/22 20 mg 24hr capsule,extend release .COMPLEX #90 caps dextroamphetamine-amphetamine ER See Rx Instructions .Route 09/18/22 20 mg 24hr capsule,extend release .COMPLEX #90 caps lidocaine 5 % topical patch 1 patch topical DAILY #15 ea 03/06/23 lorazepam 1 mg tablet 1 mg PO TID #6 tabs 07/22/23 chlordiazepoxide HCl 25 mg capsule 25 mg PO QID #12 caps 09/12/23 chlordiazepoxide HCl 25 mg capsule 25 mg PO QID 12 doses #12 caps 10/25/23 Allergies Allergy/AdvReac Type Severity Reaction Status Date / Time bupropion [From Wellbutrin] Allergy Mild Anxiety Verified 09/12/23 08:26 Patient History Medical History (Updated 12/16/23 @ 08:32 by Rebecca Garcia DO) History of pancreatitis Anxiety Tachycardia Cocaine abuse Alcohol abuse Alcoholism Social History Smoking Status: Current some day smoker Tobacco: How many years used: 10 quit status: not considering quitting second hand exposure: No alcohol intake: current substance use type: does not use Smoking Status: Current some day smoker alcohol intake frequency: 3 or more drinks per day Alcohol type: wine Substance Use Type: does not use, former substance user and crack/cocaine Exam Initial Vital Signs Initial Vital Signs: Vital Signs Pulse Rate 103 H 12/16/23 07:58 Blood Pressure 150/106 H 12/16/23 07:58 Pulse Oximetry 96 12/16/23 07:58 GENERAL: Alert very well-appearing 33-year-old male CARDIOVASCULAR: peripheral pulses in tact, cap refill <2 sec RESPIRATORY: No respiratory distress, speaks in full sentences without difficulty EXTREMITIES: Normal range of motion, no clubbing or edema. Neurovascularly intact NEUROLOGICAL: Cranial nerves II through XII grossly intact. Normal gait and speech. SKIN: Warm, dry, no petechiae, no rashes or lesions. Course Orders Ordered: Discontinued Medications Buprenorphine/Naloxone (Buprenorphine/Naloxone 8mg/2mg 1 Tab) 1 tab SL NOW ONE Stop: 12/16/23 08:29 Last Admin: 12/16/23 08:39 Dose: 1 tab Documented By: CHEMA Vital Signs Vital signs: Vital Signs - 8 hr 12/16/23 07:58 12/16/23 07:58 12/16/23 08:00 Temperature Pulse Rate 103 H 103 H Respiratory Rate Blood Pressure 150/106 H Pulse Oximetry 96 96 Oxygen Delivery Method 12/16/23 08:09 12/16/23 08:30 12/16/23 08:40 Temperature 98.6 F Pulse Rate 109 H 95 H Respiratory Rate 20 Blood Pressure 150/106 H 161/103 H Pulse Oximetry 96 97 Oxygen Delivery Method Room Air 12/16/23 08:40 12/16/23 08:45 Temperature Pulse Rate 99 H 95 H Respiratory Rate 22 Blood Pressure 161/103 H Pulse Oximetry 97 97 Oxygen Delivery Method Room Air MDM - Recheck/Abnormal Lab/Rx MDM Narrative Medical decision making narrative: Patient 33-year-old male with history of substance abuse presenting today wanting Suboxone. He has been sober doing well wants to stayed out way, requesting a dose of Suboxone. Recently slipped up with alcohol having only 2 glasses of wine but does not want anymore. Reports that Suboxone helps with alcohol cravings. I have seen patient multiple times usually intoxicated with alcohol today he appears well sober and clean. Discharge Plan Departure Patient Disposition: Home Clinical Impression: Alcoholism Activity Restrictions/Additional Instructions: I am SOOOO PROUD of you!!! Keep up the good work!! Follow up with doctor as scheduled tomorrow Return to ED as needed Prescriptions: No Action bupropion HCl 300 mg tablet extended release 24 hr 300 mg PO DAILY hydroxyzine pamoate 50 mg capsule 50 mg PO 3XD lidocaine 5 % adhesive patch,medicated 1 patch topical DAILY Qty: 15 0RF Rx Instructions: leave on most painful area for up to 12 hrs dextroamphetamine-amphetamine 20 mg capsule,extended release 24hr See Rx Instructions .ROUTE .COMPLEX Qty: 90 0RF Rx Instructions: 40 mg (2 caps) PO QAM and 20 mg (1 cap) PO Q Noon dextroamphetamine-amphetamine 20 mg capsule,extended release 24hr See Rx Instructions .ROUTE .COMPLEX Qty: 90 0RF Rx Instructions: 40 mg (2 caps) PO QAM and 20 mg (1 cap) PO Q Noon; dextroamphetamine-amphetamine 20 mg capsule,extended release 24hr See Rx Instructions .ROUTE .COMPLEX Qty: 90 0RF Rx Instructions: 40 mg (2 tabs) PO QAM and 20 mg (1 tab) PO QNoon; acetaminophen [Tylenol Extra Strength] 500 mg tablet 1,000 mg PO Q6H PRN Excedrin Extra Strength 250-250-65 mg tablet 1 tab PO Q4-6H PRN chlordiazepoxide HCl 25 mg capsule 25 mg PO QID Qty: 12 0RF Rx Instructions: until symptoms controlled lorazepam 1 mg tablet 1 mg PO TID Qty: 6 0RF Rx Instructions: Day 1 1 tablet 3 times a day, Day 2 1 tablet twice a day, Day 3 1 tablet chlordiazepoxide HCl 25 mg capsule 25 mg PO QID Qty: 12 0RF Referrals: Dagoberto Marie DO [Primary Care Provider] - Stand Alone Forms: Patient Portal/API/Survey
[2023-12-16 08:30] VITALS: PULSE 95; O2SAT 97
[2023-12-16] MEDS: BUPRENORPHINE/NALOXONE 8MG/2MG 1 TAB SL (08:39)
[2023-12-16 08:40] VITALS: BP 161/103; PULSE 99; O2SAT 97
[2023-12-16 08:45] VITALS: BP 161/103; PULSE 95; RESP 22; O2SAT 97
== END 2023-12-16 08:45 | disposition home or self-care (01) ==
PROVIDERS: Emergency Provider Emergency Medicine; PCP Family Medicine
DX: F10.20 Alcohol dependence, uncomplicated (principal)
CPT/HCPCS: 99283

== ENCOUNTER 2024-01-01 08:20 | Emergency (ER) | payer OTHER, MEDICAID, SELFPAY ==
[2024-01-01 08:33] VITALS: BP 140/99; PULSE 110; RESP 19; TEMP 36.7; O2SAT 98; BMI 29.5
--- NOTE | 2024-01-01 08:36 | DI.RAD.S_ITS ---
PROCEDURE: XR SHOULDER LT MIN 2V INDICATIONS: pain, injury TECHNIQUE: 3 views of the shoulder were acquired. COMPARISON: None. FINDINGS: Bones: No fractures or dislocations. No suspicious bony lesions. Visualized ribs appear intact. Soft tissues: No suspicious soft tissue calcifications. IMPRESSION: No acute bony abnormality. Dictated by: Janusz Escobar M.D. on 01/01/2024 at 9:19 Approved by: Janusz Escobar M.D. on 01/01/2024 at 9:19
--- NOTE | 2024-01-01 09:07 | ED.UPPEXIN ---
HPI - Extremity Injury (Upper) General Chief Complaint: Extremity Injury, Upper Stated Complaint: L arm pain, thinks he pulled a tendon Time Seen by Provider: 01/01/24 09:07 Source: patient, RN notes reviewed and old records reviewed Mode of arrival: Family Vehicle Limitations: no limitations History of Present Illness HPI narrative: 33-year-old history of ADHD, prior polysubstance abuse currently sober who presents with complaint of left arm pain. 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 He states since then he is got pain running down arm describes it feeling a little bit swollen. Numbness tingling into the fingers. He states it is painful for any sort of movements. He denies any other trauma or injuries. He has a little bit of similar symptoms on the right but states the left is much more intense. Denies any other symptoms. Denies any neck pain. 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 Patient states has not had similar symptoms in the past. States he is currently on Adderall and Wellbutrin daily. Denies any prior surgeries. No known drug allergies. Does use tobacco daily, states he has been sober from alcohol and other substances. States he was able to rest yesterday but symptoms have not resolved. Related Data Home Medications Medication Instructions Recorded Confirmed acetaminophen 500 mg tablet 1,000 mg PO Q6H PRN 07/26/18 03/06/23 (Tylenol Extra Strength) [id number]-cpcaynopjkewq-[id number] 250 1 tab PO Q4-6H PRN 07/26/18 03/06/23 mg-250 mg-65 mg tablet (Excedrin Extra Strength) bupropion HCl 300 mg 24 hr tablet, 300 mg PO DAILY 03/06/23 03/06/23 extended release hydroxyzine pamoate 50 mg capsule 50 mg PO 3XD 03/06/23 03/06/23 Previous Rx's Medication Instructions Recorded dextroamphetamine-amphetamine ER See Rx Instructions .Route 05/30/22 20 mg 24hr capsule,extend release .COMPLEX #90 caps dextroamphetamine-amphetamine ER See Rx Instructions .Route 05/30/22 20 mg 24hr capsule,extend release .COMPLEX #90 caps dextroamphetamine-amphetamine ER See Rx Instructions .Route 09/18/22 20 mg 24hr capsule,extend release .COMPLEX #90 caps lidocaine 5 % topical patch 1 patch topical DAILY #15 ea 03/06/23 lorazepam 1 mg tablet 1 mg PO TID #6 tabs 07/22/23 chlordiazepoxide HCl 25 mg capsule 25 mg PO QID #12 caps 09/12/23 chlordiazepoxide HCl 25 mg capsule 25 mg PO QID 12 doses #12 caps 10/25/23 gabapentin 300 mg capsule 300 mg PO TID 5 days #15 caps 01/01/24 prednisone 20 mg tablet 20 mg PO BID 3 days #6 tabs 01/01/24 Allergies Allergy/AdvReac Type Severity Reaction Status Date / Time No Known Drug Allergies Allergy Verified 01/01/24 09:27 Review of Systems Review of Systems ROS Unobtainable: All systems reviewed & are unremarkable except as noted in HPI and below Patient History Medical History (Updated 01/01/24 @ 09:27 by Aleida Cristobal DO) History of pancreatitis Anxiety Tachycardia Cocaine abuse Alcohol abuse Alcoholism Social History Smoking Status: Current some day smoker Tobacco: How many years used: 10 quit status: not considering quitting second hand exposure: No alcohol intake: current substance use type: does not use Smoking Status: Current some day smoker tobacco type: cigarettes and vaping alcohol intake frequency: 0-2 drinks per day Alcohol type: wine Substance Use Type: does not use, former substance user and crack/cocaine Exam Narrative Exam Narrative: GENERAL: Alert and oriented x three, male in mild distress HEENT: Head normocephalic, atraumatic, EOMI, pupils reactive, face symmetric, moist mucous membranes NECK: Supple, full range of motion, no cervical vertebral tenderness. CARDIOVASCULAR: Regular rate and rhythm without murmurs, rubs or gallops. RESPIRATORY: Breath sounds equal bilaterally, no wheezes rales or rhonchi. ABDOMEN: Soft, nontender. Normoactive bowel sounds all 4 quadrants. No guarding or rebound, rigidity, no mass : No CVA tenderness EXTREMITIES: Normal range of motion, no clubbing or edema. Neurovascularly intact. Patient has no bony tenderness. Full range of motion. Compartments are soft in the forearm and arm and hand. Patient has normal sensation to light touch. Tool And Cutter Grinder are equal bilaterally although uncomfortable for patient. 2+ radial pulse. No ecchymosis bruising or skin changes. Patient has cap refill less than 2 seconds throughout all 5 fingers. NEUROLOGICAL: Cranial nerves II through XII grossly intact. Moving all extremities SKIN: Warm, dry, no petechiae, no rashes or lesions. Initial Vital Signs Initial Vital Signs: Vital Signs Temperature 98.1 F 01/01/24 08:33 Pulse Rate 110 H 01/01/24 08:33 Respiratory Rate 19 01/01/24 08:33 Blood Pressure 140/99 H 01/01/24 08:33 Pulse Oximetry 98 01/01/24 08:33 Oxygen Delivery Method Room Air 01/01/24 08:33 Course Orders Ordered: Discontinued Medications Prednisone (Prednisone 20 Mg Tablet) 40 mg PO NOW ONE Stop: 01/01/24 09:20 Last Admin: 01/01/24 09:27 Dose: 40 mg Documented By: ANA Vital Signs Vital signs: Vital Signs - 8 hr 01/01/24 08:33 Temperature 98.1 F Pulse Rate 110 H Respiratory Rate 19 Blood Pressure 140/99 H Pulse Oximetry 98 Oxygen Delivery Method Room Air MDM - Extremity Injury (Upper) Imaging Data Extremity x-ray #1: Radiologist's Impression: Close Shoulder X-Ray (Signed) Janusz Escobar - 01/01/[address] (Signed) Cricket Reynolds - 10/28/23 Chest/Abdomen/Pelvis CT (Signed) Kyree Lu - 09/12/23 Ankle X-Ray (Signed) Mert Wright - 06/10/23 Foot X-Ray (Signed) Mert Wright - 06/10/23 Abdomen Ultrasound (Signed) Mert Wright - 02/03/[address] (Signed) Lucho Tristan - 11/22/19 Chest/Abdomen/Pelvis CT (Signed) Tristan,Lucho - 11/22/19 Pelvis X-Ray (Signed) Tristan,Lucho - 11/22/19 Chest X-Ray (Signed) Tristan,Lucho - 11/22/[address] (Signed) Azalea,Lucho - 11/22/[address] [address] XRay Report Signed Patient: Dagoberto Frank MR#: [id number] : 1990 Acct:[id number] Age/Sex: 33 / M Date of Service: 01/01/24 Loc: ED Accession Number: [id number] Procedure: XR shoulder LT min 2V Ordering Provider: Aleida Cristobal D.O. PROCEDURE: XR SHOULDER LT MIN 2V INDICATIONS: pain, injury TECHNIQUE: 3 views of the shoulder were acquired. COMPARISON: None. FINDINGS: Bones: No fractures or dislocations. No suspicious bony lesions. Visualized ribs appear intact. Soft tissues: No suspicious soft tissue calcifications. IMPRESSION: No acute bony abnormality. Dictated by: Janusz Escobar M.D. on 01/01/2024 at 9:19 Approved by: Janusz Escobar M.D. on 01/01/2024 at 9:19 [facility] Narrative Medical decision making narrative: 33-year-old male suspect overuse injury possibly a little bit of nerve involvement or radiculopathy. Patient has soft compartments with normal sensation throughout and no signs of neurovascular compromise. No swelling based on his recent history blood clots seems unlikely source of his symptoms. Shoulder x-ray shows no acute acute change Discussed with patient maybe a little bit of nerve involvement was given a dose of prednisone here discussed can try little bit of gabapentin can continue with ibuprofen and Tylenol decreased activity. Discussed return precautions all questions answered. Discussed return precautions with the patient all questions answered. Discharge Plan Departure Patient Disposition: Home Clinical Impression: Arm pain, left Instructions: DI for Arm Pain Activity Restrictions/Additional Instructions: I suspect you have little bit of overuse injury versus radiculopathy or impingement of the nerve of your left arm. I recommend rest and decreased use of your arm. You can continue with ibuprofen up to 600 mg every 6 hours and/or acetaminophen up to 1000 mg every 6 hours as needed for pain. If in adequate you can take gabapentin 1 tablet every 8 hours as needed. This medication can make you sleepy so take with caution. You can take oral steroid once daily until gone. Prescription [facility] to [facility] in [place]. Please return if you are having worsening numbness, tingling, increasing swelling of your arm, loss of sensation, inability to post production assistant or weakness in your arm, new redness or warmth or other new or concerning changes. Prescriptions: New gabapentin 300 mg capsule 300 mg PO TID 5 Days Qty: 15 0RF prednisone 20 mg tablet 20 mg PO BID 3 Days Qty: 6 0RF No Action bupropion HCl 300 mg tablet extended release 24 hr 300 mg PO DAILY hydroxyzine pamoate 50 mg capsule 50 mg PO 3XD lidocaine 5 % adhesive patch,medicated 1 patch topical DAILY Qty: 15 0RF Rx Instructions: leave on most painful area for up to 12 hrs dextroamphetamine-amphetamine 20 mg capsule,extended release 24hr See Rx Instructions .ROUTE .COMPLEX Qty: 90 0RF Rx Instructions: 40 mg (2 caps) PO QAM and 20 mg (1 cap) PO Q Noon dextroamphetamine-amphetamine 20 mg capsule,extended release 24hr See Rx Instructions .ROUTE .COMPLEX Qty: 90 0RF Rx Instructions: 40 mg (2 caps) PO QAM and 20 mg (1 cap) PO Q Noon; dextroamphetamine-amphetamine 20 mg capsule,extended release 24hr See Rx Instructions .ROUTE .COMPLEX Qty: 90 0RF Rx Instructions: 40 mg (2 tabs) PO QAM and 20 mg (1 tab) PO QNoon; acetaminophen [Tylenol Extra Strength] 500 mg tablet 1,000 mg PO Q6H PRN Excedrin Extra Strength 250-250-65 mg tablet 1 tab PO Q4-6H PRN chlordiazepoxide HCl 25 mg capsule 25 mg PO QID Qty: 12 0RF Rx Instructions: until symptoms controlled lorazepam 1 mg tablet 1 mg PO TID Qty: 6 0RF Rx Instructions: Day 1 1 tablet 3 times a day, Day 2 1 tablet twice a day, Day 3 1 tablet chlordiazepoxide HCl 25 mg capsule 25 mg PO QID Qty: 12 0RF Referrals: Dagoberto Marie DO [Primary Care Provider] - Stand Alone Forms: Patient Portal/API/Survey, Work Release Note
[2024-01-01] MEDS: predniSONE 20 MG TABLET 40 MG PO (09:27)
[2024-01-01 09:29] VITALS: PULSE 101; RESP 19; O2SAT 100
[2024-01-01 09:37] VITALS: RESP 17
--- NOTE | 2024-01-01 09:37 | PC.NURSE ---
Left arm pain w/ tingling. Pt states he might have over-used the shoulder at work but is unsure. 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 Pt able to move fingers/extremity.
== END 2024-01-01 09:38 | disposition home or self-care (01) ==
PROVIDERS: Emergency Provider Emergency Medicine; PCP Family Medicine
DX: M79.602 Pain in left arm (principal)
CPT/HCPCS: 73030; 99283

== ENCOUNTER 2024-07-23 16:41 | Emergency (ER) | payer OTHER, SELFPAY ==
[2024-07-23 16:46] VITALS: BP 129/87; PULSE 110; RESP 20; TEMP 36.9; O2SAT 99; BMI 25.8
--- NOTE | 2024-07-23 19:15 | ED.GENADULT ---
HPI - General Adult General Chief complaint: Toxicology Problem Stated complaint: withdraw symptoms Time Seen by Provider: 07/23/24 18:23 Source: patient Mode of arrival: Ambulatory Related Data Home Medications ?Medication ?Instructions ?Recorded ?Confirmed acetaminophen 500 mg tablet 1,000 mg PO Q6H PRN 07/26/18 03/06/23 (Tylenol Extra Strength) clmhpns-rzowyhkyyvhri-tkkqwtnu 250 1 tab PO Q4-6H PRN 07/26/18 03/06/23 mg-250 mg-65 mg tablet (Excedrin Extra Strength) bupropion HCl 300 mg 24 hr tablet, 300 mg PO DAILY 03/06/23 03/06/23 extended release hydroxyzine pamoate 50 mg capsule 50 mg PO 3XD 03/06/23 03/06/23 Previous Rx's ?Medication ?Instructions ?Recorded dextroamphetamine-amphetamine ER See Rx Instructions .Route 05/30/22 20 mg 24hr capsule,extend release .COMPLEX #90 caps dextroamphetamine-amphetamine ER See Rx Instructions .Route 05/30/22 20 mg 24hr capsule,extend release .COMPLEX #90 caps dextroamphetamine-amphetamine ER See Rx Instructions .Route 09/18/22 20 mg 24hr capsule,extend release .COMPLEX #90 caps lidocaine 5 % topical patch 1 patch topical DAILY #15 ea 03/06/23 lorazepam 1 mg tablet 1 mg PO TID #6 tabs 07/22/23 chlordiazepoxide HCl 25 mg capsule 25 mg PO QID #12 caps 09/12/23 chlordiazepoxide HCl 25 mg capsule 25 mg PO QID 12 doses #12 caps 10/25/23 Allergies Allergy/AdvReac Type Severity Reaction Status Date / Time No Known Drug Allergies Allergy Verified 01/01/24 09:27 Patient History Medical History (Updated 01/16/24 @ 00:01 by ) History of pancreatitis Anxiety Tachycardia Cocaine abuse Alcohol abuse Alcoholism Social History Tobacco: How many years used: 10 quit status: not considering quitting second hand exposure: No alcohol intake: current substance use type: does not use tobacco type: cigarettes and vaping alcohol intake frequency: 0-2 drinks per day Alcohol type: wine Exam Initial Vital Signs Initial Vital Signs: Vital Signs Temperature 98.4 F 07/23/24 16:46 Pulse Rate 110 H 07/23/24 16:46 Respiratory Rate 20 06/11/25 16:46 Blood Pressure 129/87 07/23/24 16:46 Pulse Oximetry 99 07/23/24 16:46 Oxygen Delivery Method Room Air 07/23/24 16:46 Course Vital Signs Vital signs: Vital Signs - 8 hr 07/23/24 16:46 Temperature 98.4 F Pulse Rate 110 H Respiratory Rate 20 Blood Pressure 129/87 Pulse Oximetry 99 Oxygen Delivery Method Room Air Discharge Plan Departure Prescriptions: No Action bupropion HCl 300 mg tablet extended release 24 hr 300 mg PO DAILY hydroxyzine pamoate 50 mg capsule 50 mg PO 3XD lidocaine 5 % adhesive patch,medicated 1 patch topical DAILY Qty: 15 0RF Rx Instructions: leave on most painful area for up to 12 hrs dextroamphetamine-amphetamine 20 mg capsule,extended release 24hr See Rx Instructions .ROUTE .COMPLEX Qty: 90 0RF Rx Instructions: 40 mg (2 caps) PO QAM and 20 mg (1 cap) PO Q Noon dextroamphetamine-amphetamine 20 mg capsule,extended release 24hr See Rx Instructions .ROUTE .COMPLEX Qty: 90 0RF Rx Instructions: 40 mg (2 caps) PO QAM and 20 mg (1 cap) PO Q Noon; dextroamphetamine-amphetamine 20 mg capsule,extended release 24hr See Rx Instructions .ROUTE .COMPLEX Qty: 90 0RF Rx Instructions: 40 mg (2 tabs) PO QAM and 20 mg (1 tab) PO QNoon; acetaminophen [Tylenol Extra Strength] 500 mg tablet 1,000 mg PO Q6H PRN Excedrin Extra Strength 250-250-65 mg tablet 1 tab PO Q4-6H PRN chlordiazepoxide HCl 25 mg capsule 25 mg PO QID Qty: 12 0RF Rx Instructions: until symptoms controlled lorazepam 1 mg tablet 1 mg PO TID Qty: 6 0RF Rx Instructions: Day 1 1 tablet 3 times a day, Day 2 1 tablet twice a day, Day 3 1 tablet chlordiazepoxide HCl 25 mg capsule 25 mg PO QID Qty: 12 0RF Referrals: Dagoberto Marie DO [Primary Care Provider, [facility]]
== END 2024-07-23 20:36 | disposition left against medical advice (07) ==
PROVIDERS: Emergency Provider Emergency Medicine; PCP Family Medicine
CPT/HCPCS: 99281

== ENCOUNTER 2024-10-20 08:09 | Emergency (ER) | payer OTHER, SELFPAY ==
[2024-10-20 08:42] VITALS: BP 142/78; PULSE 79; RESP 16; TEMP 37.1; O2SAT 100; BMI 31.0
--- NOTE | 2024-10-20 10:04 | ED.DENTAL ---
HPI - Dental/Oral General Chief complaint: Dental/Oral Stated complaint: Possible Tooth infection, Needs meds Time Seen by Provider: 10/20/24 09:59 Source: patient Mode of arrival: Ambulatory History of Present Illness HPI Narrative: Patient 34-year-old male history of ADHD prior alcohol abuse but has been sober for over 1 year presenting today with dental pain. He reports the right lower tooth has been painful over the last 3-4 days no fever or chills. He is chronically bad teeth at baseline. He is currently on Suboxone Related Data Home Medications ?Medication ?Instructions ?Recorded ?Confirmed acetaminophen 500 mg tablet 1,000 mg PO Q6H PRN 07/26/18 03/06/23 (Tylenol Extra Strength) [id number]-[id number] 250 1 tab PO Q4-6H PRN 07/26/18 03/06/23 mg-250 mg-65 mg tablet (Excedrin Extra Strength) bupropion HCl 300 mg 24 hr tablet, 300 mg PO DAILY 03/06/23 03/06/23 extended release hydroxyzine pamoate 50 mg capsule 50 mg PO 3XD 03/06/23 03/06/23 Previous Rx's ?Medication ?Instructions ?Recorded dextroamphetamine-amphetamine ER See Rx Instructions .Route 05/30/22 20 mg 24hr capsule,extend release .COMPLEX #90 caps dextroamphetamine-amphetamine ER See Rx Instructions .Route 05/30/22 20 mg 24hr capsule,extend release .COMPLEX #90 caps dextroamphetamine-amphetamine ER See Rx Instructions .Route 09/18/22 20 mg 24hr capsule,extend release .COMPLEX #90 caps lidocaine 5 % topical patch 1 patch topical DAILY #15 ea 03/06/23 lorazepam 1 mg tablet 1 mg PO TID #6 tabs 07/22/23 chlordiazepoxide HCl 25 mg capsule 25 mg PO QID #12 caps 09/12/23 chlordiazepoxide HCl 25 mg capsule 25 mg PO QID 12 doses #12 caps 10/25/23 hydrocodone 5 mg-acetaminophen 325 1 tab PO Q6H PRN pain #10 tabs 10/20/24 mg tablet penicillin V potassium 500 mg 500 mg PO TID #21 tabs 10/20/24 tablet Allergies Allergy/AdvReac Type Severity Reaction Status Date / Time No Known Drug Allergies Allergy Verified 01/01/24 09:27 Patient History Medical History (Updated 10/20/24 @ 10:08 by Rebecca Garcia DO) History of pancreatitis Anxiety Tachycardia Cocaine abuse Alcohol abuse Alcoholism Social History Tobacco: How many years used: 10 quit status: not considering quitting second hand exposure: No alcohol intake: current substance use type: does not use tobacco type: cigarettes and vaping alcohol intake frequency: 0-2 drinks per day Alcohol type: wine Exam Initial Vital Signs Initial Vital Signs: Vital Signs Temperature 98.8 F 10/20/24 08:42 Pulse Rate 79 10/20/24 08:42 Respiratory Rate 16 10/20/24 08:42 Blood Pressure 142/78 H 10/20/24 08:42 Pulse Oximetry 100 10/20/24 08:42 Oxygen Delivery Method Room Air 10/20/24 08:42 GENERAL: Well-appearing, well-nourished and in no acute distress. CARDIOVASCULAR: peripheral pulses in tact, cap refill <2 sec RESPIRATORY: No respiratory distress, speaks in full sentences without difficulty EXTREMITIES: Normal range of motion, no clubbing or edema. Neurovascularly intact NEUROLOGICAL: Cranial nerves II through XII grossly intact. Normal gait and speech. SKIN: Warm, dry, no petechiae, no rashes or lesions. HENMT Adult Head Mouth w/Numbe Teeth:  1. Chronic crack tooth no dental abscess Course Vital Signs Vital signs: Vital Signs - 8 hr 10/20/24 08:42 Temperature 98.8 F Pulse Rate 79 Respiratory Rate 16 Blood Pressure 142/78 H Pulse Oximetry 100 Oxygen Delivery Method Room Air MDM - Dental/Oral MDM Narrative Medical decision making narrative: Patient 34-year-old male presenting today with dental pain. No abscess but there is some mild facial swelling no trismus. We talked a lot about pain control and substance abuse. He is on Suboxone he does not have an opiate problems he has been sober he really has no desire to start using again he has solid job he has a better relationship with his children and his ex and that is more important to him. I feel comfortable giving him a small amount of opiates and antibiotics Discharge Plan Departure Patient Disposition: Home Clinical Impression: Pain, dental Instructions: DI for Dental Pain Activity Restrictions/Additional Instructions: *You have been diagnosed with dental pain *What to do: At this time try and use Tylenol Motrin for pain give the antibiotics a couple days to work *Continue to take medications as directed Pen-VK 500 mg tid for 7 days [place] 1 tablet only if needed for severe pain may try and use at--this will interact with your Suboxone Motrin 600 mg every 6 hours *Follow up with your primary care provider in 2-3 days or call [phone] *Return to ER if you should have increasing pain swelling red or any new, worsening or concerning symptoms CONTROLLED SUBSTANCE DISCHARGE (Narcotoic/benzodiazepine/Flexeril/Phenergan) 1. You have been prescribed narcotic medications, it does have acetaminophen/Tylenol/paracetamol in it, DO NOT TAKE MORE THAN 4,00mg in 24 hours of Tylenol. TRAMADOL DOES NOT CONTAIN TYLENOL 2. Please understand that we cannot provide further refills of narcotics, benzodiazepines or controlled substances through the ED and her pain management will need to be through your provider. 3. While on these medications you cannot drive or operate heavy machinery. 4. You cannot sign legal documents or perform any duties such as this. 5. As long as you're taking opiate pain medications he should also be taking a stool softener such as Colace, Dulcolax, MiraLAX or prune juice, to help avoid constipation. Prescriptions: New penicillin V potassium 500 mg tablet 500 mg PO TID Qty: 21 0RF hydrocodone-acetaminophen 5-325 mg tablet 1 tab PO Q6H PRN (Reason: pain) Qty: 10 0RF No Action bupropion HCl 300 mg tablet extended release 24 hr 300 mg PO DAILY hydroxyzine pamoate 50 mg capsule 50 mg PO 3XD lidocaine 5 % adhesive patch,medicated 1 patch topical DAILY Qty: 15 0RF Rx Instructions: leave on most painful area for up to 12 hrs dextroamphetamine-amphetamine 20 mg capsule,extended release 24hr See Rx Instructions .ROUTE .COMPLEX Qty: 90 0RF Rx Instructions: 40 mg (2 caps) PO QAM and 20 mg (1 cap) PO Q Noon dextroamphetamine-amphetamine 20 mg capsule,extended release 24hr See Rx Instructions .ROUTE .COMPLEX Qty: 90 0RF Rx Instructions: 40 mg (2 caps) PO QAM and 20 mg (1 cap) PO Q Noon; dextroamphetamine-amphetamine 20 mg capsule,extended release 24hr See Rx Instructions .ROUTE .COMPLEX Qty: 90 0RF Rx Instructions: 40 mg (2 tabs) PO QAM and 20 mg (1 tab) PO QNoon; acetaminophen [Tylenol Extra Strength] 500 mg tablet 1,000 mg PO Q6H PRN Excedrin Extra Strength 250-250-65 mg tablet 1 tab PO Q4-6H PRN chlordiazepoxide HCl 25 mg capsule 25 mg PO QID Qty: 12 0RF Rx Instructions: until symptoms controlled lorazepam 1 mg tablet 1 mg PO TID Qty: 6 0RF Rx Instructions: Day 1 1 tablet 3 times a day, Day 2 1 tablet twice a day, Day 3 1 tablet chlordiazepoxide HCl 25 mg capsule 25 mg PO QID Qty: 12 0RF Referrals: Dagoberto Marie DO [Primary Care Provider, Family Practice] Stand Alone Forms: Patient Portal/API, Work Release Note
== END 2024-10-20 10:59 | disposition home or self-care (01) ==
PROVIDERS: Emergency Provider Emergency Medicine; PCP Family Medicine
DX: K08.89 Other specified disorders of teeth and supporting structures (principal)
CPT/HCPCS: 99281

== ENCOUNTER 2024-10-22 06:15 | Emergency (ER) | payer OTHER, SELFPAY ==
[2024-10-22] VITALS (10 sets, daily range): BP systolic 134–175; BP diastolic 48–96; PULSE 68–99; RESP 19–20; TEMP 37; O2SAT 96–99; BMI 31.0
--- NOTE | 2024-10-22 06:28 | DI.CT.S_ITS ---
PROCEDURE: CT SOFT TISSUE NECK W CON INDICATIONS: right submand swelling, R dental caries lower TECHNIQUE: After the administration of intravenous contrast, 3.0 mm axial sections acquired from the sella to the aortic arch. Additional oblique axial 3.0 mm sections acquired through the pharynx. 3 mm thick coronal and sagittal reformats were generated. For radiation dose reduction, the following was used: automated exposure control. COMPARISON: None. FINDINGS: Image quality: Excellent. Lymph nodes: Mildly prominent right submandibular lymph nodes are seen measures up to 7 mm in short axis diameter. Bilateral level 2 lymph nodes are also seen measures up to 1 cm in size. Prominent right submental lymph node measures 1 cm in size. No other enlarged lymph nodes are seen in rest of the neck soft tissue. Vessels: Visualized vasculature appears patent. Neck spaces: There is asymmetric enlargement of right mylohyoid and high o'clock cysts muscles compared to the left side with heterogeneous enhancement and internal ill-defined hypodensities adjacent to inner aspect of right mandibular body measures up to 8 mm in size series 2, image 48. This is closely associated with adjacent 3rd molar tooth with periapical lucencies. The nasopharynx, and pharynx demonstrate no mucosal lesions. The vocal cords, false vocal cords, pyriform sinuses, epiglottis, vallecula, and tongue base all appear normal. Extramucosal spaces appear unremarkable. Glands: The parotid and submandibular glands appear normal. Thyroid gland is within normal limits. Miscellaneous: Visualized brain and orbits appear normal. Lung apices appear clear. Superficial soft tissues appear normal. Bones: No suspicious bony lesions. Visualized sinuses and mastoids appear unremarkable. IMPRESSION: 1. Inflammatory changes in right submandibular space adjacent to the right lower 3rd molar tooth with adjacent soft tissue swelling and possible intramuscular hypodense area concerning for right sided periapical abscess with spreading to right submandibular space and possible early intramuscular abscess collection as described above. 2. Mildly prominent neck soft tissue lymph nodes likely reactive in nature. 3. Rest of the airway is patent. No other soft tissue mass or abscess collection. Dictated by: Bhupinder Love M.D. on 10/22/2024 at 8:22 Approved by: Bhupinder Love M.D. on 10/22/2024 at 8:33
--- NOTE | 2024-10-22 06:30 | ED_ITS ---
HPI - General Adult <David Collins MD - Last Filed: 10/22/24 16:42> General Chief complaint: Dental/Oral Stated complaint: Dental Pain Time Seen by Provider: 10/22/24 06:17 History of Present Illness HPI narrative: 34-year-old male with history of polysubstance abuse including alcohol withdrawal and cocaine use in the past, poor dentition, day 3 of oral amoxicillin for right-sided dental infection, increasing pain, increasing submandibular nontraumatic swelling, painful swallowing, no change in voice. Able to swallow his oral secretions. Can move his neck up down side side. Related Data Home Medications ?Medication ?Instructions ?Recorded ?Confirmed acetaminophen 500 mg tablet 1,000 mg PO Q6H PRN 03/06/23 (Tylenol Extra Strength) [id number] 250 1 tab PO Q4-6H PRN 07/26/18 03/06/23 mg-250 mg-65 mg tablet (Excedrin Extra Strength) bupropion HCl 300 mg 24 hr tablet, 300 mg PO DAILY 03/06/23 extended release hydroxyzine pamoate 50 mg capsule 50 mg PO 3XD 4 03/06/23 Previous Rx's ?Medication ?Instructions ?Recorded dextroamphetamine-amphetamine ER See Rx Instructions . Route 05/30/22 20 mg 24hr capsule,extend release .COMPLEX #90 caps dextroamphetamine-amphetamine ER See Rx Instructions . Route 05/30/22 20 mg 24hr capsule,extend release .COMPLEX #90 caps dextroamphetamine-amphetamine ER See Rx Instructions . Route 09/18/22 20 mg 24hr capsule,extend release .COMPLEX #90 caps lidocaine 5 % topical patch 1 patch topical DAILY #15 ea 03/06/23 lorazepam 1 mg tablet 1 mg PO TID #6 tabs 07/22/23 chlordiazepoxide HCl 25 mg capsule 25 mg PO QID #12 ca ps 09/12/23 chlordiazepoxide HCl 25 mg capsule 25 mg PO QID 12 dos es #12 caps 10/25/23 hydrocodone 5 mg-acetaminophen 325 1 tab PO Q6H PRN pa in #10 tabs 10/20/24 mg tablet penicillin V potassium 500 mg 500 mg PO TID #21 tabs 0 10/20/24 tablet amoxicillin 875 mg-potassium 1 tab PO BID #20 tabs 12/06 clavulanate 125 mg tablet hydrocodone 5 mg-acetaminophen 325 1 tab PO Q6H PRN pa in #7 tabs 10/22/24 mg tablet Allergies Allergy/AdvReac Type Severity Reaction Status Date / Time No Known Drug Allergies Allergy Verified 01/01/24 09:27 Patient History <David Collins MD - Last Filed: 10/22/24 16:42> Medical History (Updated 10/22/24 @ 09:41 by Aleida Cristobal DO) History of pancreatitis Anxiety Tachycardia Cocaine abuse Alcohol abuse Alcoholism Social History Tobacco: How many years used: 10 quit status: not considering quitting second hand exposure: No alcohol intake: current substance use type: does not use tobacco type: cigarettes and vaping alcohol intake frequency: 0-2 drinks per day Alcohol type: wine Exam <David Collins MD - Last Filed: 10/22/24 16:42> Narrative Exam Narrative: GENERAL: Well-developed patient, in mild distress. HEAD: Atraumatic. Normocephalic. EYES: Pupils equal round and reactive. Extraocular motions intact. No scleral icterus. No injection or drainage. ENT: Nose without bleeding, purulent drainage. Throat without erythema, tonsillar hypertrophy or exudate. Airway patent. Poor dentition particularly right lower premolar molar and posterior molar, with visible and palpable submandibular right-sided edema, no crepitance. Normal phonation. Moves neck up down, also can move [id number]. Can open jaw. Handling his secretions. NECK: Trachea midline. Non tender CARDIOVASCULAR: Regular rate and rhythm without murmurs, gallops, or rubs. RESPIRATORY: Clear to auscultation. Breath sounds equal bilaterally. No wheezes, rales, or rhonchi. GASTROINTESTINAL: Abdomen soft, non-tender, nondistended. EXTREMITIES: No edema or joint tenderness. BACK: Nontender without deformity or crepitance. No flank tenderness. NEURO: AOx3. Motor functions grossly nonfocal. SKIN: No rash or erythema of visible areas Initial Vital Signs Initial Vital Signs: Vital Signs Temperature 98.6 F 10/22/24 06:31 Pulse Rate 99 H 10/22/24 06:31 Respiratory Rate 20 10/22/24 06:31 Blood Pressure 138/93 H 10/22/24 06:31 Pulse Oximetry 99 10/22/24 06:31 Oxygen Delivery Method Room Air 10/22/24 06:31 <Aleida Cristobal DO - Last Filed: 10/22/24 19:05> Initial Vital Signs Initial Vital Signs: Vital Signs Temperature 98.6 F 10/22/24 06:31 Pulse Rate 99 H 10/22/24 06:31 Respiratory Rate 20 10/22/24 06:31 Blood Pressure 138/93 H 10/22/24 06:31 Pulse Oximetry 99 10/22/24 06:31 Oxygen Delivery Method Room Air 10/22/24 06:31 Course <David Collins MD - Last Filed: 10/22/24 16:42> Orders Ordered: Discontinued Medications Hydrocodone Bitart/Acetaminophen (Hydrocodone/Acet 5/325 Tablet) 2 tab PO NOW ONE Stop: 10/22/24 08:58 Last Admin: 10/22/24 09:23 Dose: 2 tab Documented By: Dexamethasone (Dexamethasone 10 Mg/Ml Vial) 10 mg IV NOW ONE Stop: 10/22/24 06:27 Last Admin: 10/22/24 06:55 Dose: 10 mg Documented By: ANA Hydromorphone HCl (Hydromorphone Hcl 0.5 Mg/0.5 Ml Syringe) 0.5 mg IV NOW ONE Stop: 10/22/24 06:27 Last Admin: 10/22/24 06:56 Dose: 0.5 mg Documented By: ANA Ampicillin Sodium/Sulbactam (Sodium 3 gm/ Sodium Chloride) 100 mls @ 200 mls/hr IV NOW ONE Stop: 10/22/24 06:27 Last Infusion: 10/22/24 08:29 Dose: Infused Documented By: Admin: 10/22/24 06:58 Dose: 200 mls/hr Documented By: ANA Sodium Chloride (Normal Saline 0.9%) 1,000 mls @ 1,000 mls/hr IV BOLUS ONE Stop: 10/22/24 07:25 Last Infusion: 10/22/24 08:29 Dose: Infused Documented By: Admin: 10/22/24 06:47 Dose: 1,000 mls/hr Documented By: ANA Ketorolac Tromethamine (Ketorolac 30 Mg/Ml Vial) 15 mg IV NOW ONE Stop: 10/22/24 06:27 Last Admin: 10/22/24 06:52 Dose: 15 mg Documented By: ANA Ondansetron HCl (Ondansetron 4 Mg/2 Ml Inj) 4 mg IV NOW ONE Stop: 10/22/24 06:31 Last Admin: 10/22/24 06:49 Dose: 4 mg Documented By: ANA Vital Signs Vital signs: Vital Signs - 8 hr 10/22/24 10:00 Pulse Rate 69 Respiratory Rate 19 Blood Pressure 135/48 L Pulse Oximetry 98 Oxygen Delivery Method Room Air <Aleida Cristobal DO - Last Filed: 10/22/24 19:05> Orders Ordered: Discontinued Medications Hydrocodone Bitart/Acetaminophen (Hydrocodone/Acet 5/325 Tablet) 2 tab PO NOW ONE Stop: 10/22/24 08:58 Last Admin: 10/22/24 09:23 Dose: 2 tab Documented By: Dexamethasone (Dexamethasone 10 Mg/Ml Vial) 10 mg IV NOW ONE Stop: 10/22/24 06:27 Last Admin: 10/22/24 06:55 Dose: 10 mg Documented By: ANA Hydromorphone HCl (Hydromorphone Hcl 0.5 Mg/0.5 Ml Syringe) 0.5 mg IV NOW ONE Stop: 10/22/24 06:27 Last Admin: 10/22/24 06:56 Dose: 0.5 mg Documented By: ANA Ampicillin Sodium/Sulbactam (Sodium 3 gm/ Sodium Chloride) 100 mls @ 200 mls/hr IV NOW ONE Stop: 10/22/24 06:27 Last Infusion: 10/22/24 08:29 Dose: Infused Documented By: Admin: 10/22/24 06:58 Dose: 200 mls/hr Documented By: ANA Sodium Chloride (Normal Saline 0.9%) 1,000 mls @ 1,000 mls/hr IV BOLUS ONE Stop: 10/22/24 07:25 Last Infusion: 10/22/24 08:29 Dose: Infused Documented By: Admin: 10/22/24 06:47 Dose: 1,000 mls/hr Documented By: ANA Ketorolac Tromethamine (Ketorolac 30 Mg/Ml Vial) 15 mg IV NOW ONE Stop: 10/22/24 06:27 Last Admin: 10/22/24 06:52 Dose: 15 mg Documented By: NAA Ondansetron HCl (Ondansetron 4 Mg/2 Ml Inj) 4 mg IV NOW ONE Stop: 10/22/24 06:31 Last Admin: 10/22/24 06:49 Dose: 4 mg Documented By: ANA Vital Signs Vital signs: Vital Signs - 8 hr 10/22/24 10:00 Pulse Rate 69 Respiratory Rate 19 Blood Pressure 135/48 L Pulse Oximetry 98 Oxygen Delivery Method Room Air Medical Decision Making <David Collins MD - Last Filed: 10/22/24 16:42> Lab Data 10/22/24 07:07 10/22/24 07:07 Labs: Lab Results 10/22/24 Range/Units 07:07 WBC 9.2 (4.5-11.0) X10^3/uL RBC 3.95 L (4.5-5.9) X10^6/uL Hgb 11.6 L (13.5-17.5) g/dL Hct 34.6 L (41-53) % MCV 87.6 (80-100) fL MCH 29.4 (26-34) PG MCHC 33.5 (30-36) % RDW 13.0 (11.6-14.8) % Plt Count 264 (150-400) X10^3/uL Neut % (Auto) 77.2 H (50-75) % Lymph % (Auto) 14.3 L (25-40) % [place] % (Auto) 7.4 (3-14) % Eos % (Auto) 0.5 L (2-4) % Baso % (Auto) 0.6 (0-2) % Neut # (Auto) 7100 H (9685-2578) /uL Lymph # (Auto) 1300 (6826-5943) /uL [place] # (Auto) 700 (0-900) /uL Eos # (Auto) 100 (0-450) /uL Baso # (Auto) 100 (0-100) /uL Sodium 138 (137-145) mmol/L Potassium 3.9 (3.4-5.1) mmol/L Chloride 105 (98-107) mmol/L Carbon Dioxide 25 (22-32) mmol/L BUN 11 (9-20) mg/dL Creatinine 0.78 (0.66-1.25) mg/dL Estimated GFR > 60 (>60) mL/min BUN/Creatinine Ratio 14.1 (6-22) Glucose 109 H (70-99) mg/dL Calcium 8.8 (8.4-10.2) mg/dL Total Bilirubin 0.5 (0.2-1.3) mg/dL AST 38 (17-59) IU/L ALT 36 (<50) IU/L Alkaline Phosphatase 66 (38-126) U/L Total Protein 7.3 (6.3-8.2) g/dL Albumin 4.0 (3.5-5.0) g/dL Globulin 3.3 (1.7-4.1) g/dL Albumin/Globulin Ratio 1.2 (1.0-2.8) MDM Narrative Medical decision making narrative: 34-year-old male with history of polysubstance abuse with increasing right lower jaw and submandibular pain with swelling, day 3 oral amoxicillin antibiotic, awaiting follow up with dentist. Significant swelling right submandibular, though patient does seemed to be able to have [id number] and up down range of motion of his head/neck, has normal phonation, handling his oral secretions. Consider imaging to screen for drainable abscess. CT soft tissue neck ordered. IV Unasyn, Decadron, Toradol, Dilaudid/Zofran, fluid bolus ordered. Keep NPO for now. 0730, CT soft tissue neck results pending, signed out to Dr Cristobal. <Aleida Cristobal DO - Last Filed: 10/22/24 19:05> Lab Data Labs: Lab Results 10/22/24 Range/Units 07:07 WBC 9.2 (4.5-11.0) X10^3/uL RBC 3.95 L (4.5-5.9) X10^6/uL Hgb 11.6 L (13.5-17.5) g/dL Hct 34.6 L (41-53) % MCV 87.6 (80-100) fL MCH 29.4 (26-34) PG MCHC 33.5 (30-36) % RDW 13.0 (11.6-14.8) % Plt Count 264 (150-400) X10^3/uL Neut % (Auto) 77.2 H (50-75) % Lymph % (Auto) 14.3 L (25-40) % [place] % (Auto) 7.4 (3-14) % Eos % (Auto) 0.5 L (2-4) % Baso % (Auto) 0.6 (0-2) % Neut # (Auto) 7100 H (9751-9787) /uL Lymph # (Auto) 1300 (8269-2746) /uL [place] # (Auto) 700 (0-900) /uL Eos # (Auto) 100 (0-450) /uL Baso # (Auto) 100 (0-100) /uL Sodium 138 (137-145) mmol/L Potassium 3.9 (3.4-5.1) mmol/L Chloride 105 (98-107) mmol/L Carbon Dioxide 25 (22-32) mmol/L BUN 11 (9-20) mg/dL Creatinine 0.78 (0.66-1.25) mg/dL Estimated GFR > 60 (>60) mL/min BUN/Creatinine Ratio 14.1 (6-22) Glucose 109 H (70-99) mg/dL Calcium 8.8 (8.4-10.2) mg/dL Total Bilirubin 0.5 (0.2-1.3) mg/dL AST 38 (17-59) IU/L ALT 36 (<50) IU/L Alkaline Phosphatase 66 (38-126) U/L Total Protein 7.3 (6.3-8.2) g/dL Albumin 4.0 (3.5-5.0) g/dL Globulin 3.3 (1.7-4.1) g/dL Albumin/Globulin Ratio 1.2 (1.0-2.8) [facility] Narrative Medical decision making narrative: 34-year-old male with history of polysubstance abuse with increasing right lower jaw and submandibular pain with swelling, day 3 oral amoxicillin antibiotic, awaiting follow up with dentist. Significant swelling right submandibular, though patient does seemed to be able to have [id number] and up down range of motion of his head/neck, has normal phonation, handling his oral secretions. Consider imaging to screen for drainable abscess. CT soft tissue neck ordered. IV Unasyn, Decadron, Toradol, Dilaudid/Zofran, fluid bolus ordered. Keep NPO for now. 0730, CT soft tissue neck results pending, signed out to Dr Cristobal. 10/22/24 Dr. Cristobal: Patient signed out to myself with the right lower jaw and submandibular pain swelling started on amoxicillin 3 days prior. Patient has CT pending. Labs show normal white count, hemoglobin of 11, platelets of 264 predominance of neutrophils. Chemistries are appropriate BUN and creatinine normal glucose is [address] shows mildly prominent right submandibular lymph nodes measuring up to 7 mm short axis diameter bilateral level 2 lymph nodes seen measures up to 1 cm diameter. Prominent right submental lymph node measures 1 cm in size no other enlarged nodes seen in the rest of the neck soft tissue. Visualized vasculature appears patent. Asymmetric enlargement right mylohyoid and high o'clock cysts muscles compared to the left side with a heterogeneous enhancement and internal ill-defined hypodensities adjacent inner aspect of right mandibular body measures up to 8 mm in size series 2, image 48 closely associated with the adjacent 3rd molar with periapical lucencies. Nasopharynx and pharynx demonstrate no mucosal lesions. The vocal cords, false cords, piriformis sinus, epiglottis, vallecula and tongue base all appear normal. Extra mucosal bases appear unremarkable. Glands appear normal thyroid gland normal limits. Findings concerning for right-sided periapical abscess with spreading to right submandibular space possible early intramuscular abscess collection as described above. Mildly prominent neck soft tissue lymph nodes likely reactive in nature. Rest airway is patent. No other soft tissue mass or abscess collection. Patient is seen and evaluated by myself. Patient has some mild swelling of the right cheek and just underneath. No difficulty with swallowing has a normal range of motion. No changes to phonation no hoarseness no stridor patient is able to lie back in the bed without any issue. Lungs are clear heart is regular rate rhythm. Paged Dr. Ontiveros @ [address] Ontiveros @ 2009 would recommend to see OMFS. Spoke with Dr. Husain @ 0115: He is happy to see the patient felt he can see him in the office today. Agrees with the plan to change patient to Augmentin does not want any steroids at this time. Patient received Unasyn, Decadron, Toradol, Dilaudid Zofran and fluids. Discussed with the patient he feels comfortable this plan we discussed if there was any barriers to following up with Dr. Husain may need to go to larger facility to have addressed but can return here. Patient has strict return precautions if he is not able to address this and should be seen shortly. Patient is too call Dr. Husain today. Discussed Rodrigue's office plans to reach out to him today also. Discharge Plan Departure Patient Disposition: Home Clinical Impression: Abscess, periapical Activity Restrictions/Additional Instructions: You have what appears to be a periapical abscess but also developing abscess in the muscles and underneath the mandible region. This becomes very large can become very dangerous and defect or airway. I spoke with Dr. Husain, [facility] [place]. He is happy to see you likely today. Please call the office after your discharged. They may also reach out to you. Switch your antibiotic to the new prescription sent to [facility]. This medication can make you sleepy do not drive, perform hazardous activities or make any major decisions while taking it. This medication will make you constipated please take a stool softener once to twice daily until stools are soft and regular. Return to the emergency department if you are having any increasing swelling, fevers, difficulty with swallowing, any changes to speech or any other new or concerning changes. Prescriptions: New amoxicillin-pot clavulanate 875-125 mg tablet 1 tab PO BID Qty: 20 0RF hydrocodone-acetaminophen 5-325 mg tablet 1 tab PO Q6H PRN (Reason: pain) Qty: 7 0RF No Action bupropion HCl 300 mg tablet extended release 24 hr 300 mg PO DAILY hydroxyzine pamoate 50 mg capsule 50 mg PO 3XD lidocaine 5 % adhesive patch,medicated 1 patch topical DAILY Qty: 15 0RF Rx Instructions: leave on most painful area for up to 12 hrs dextroamphetamine-amphetamine 20 mg capsule,extended release 24hr See Rx Instructions .ROUTE .COMPLEX Qty: 90 0RF Rx Instructions: 40 mg (2 caps) PO QAM and 20 mg (1 cap) PO Q Noon dextroamphetamine-amphetamine 20 mg capsule,extended release 24hr See Rx Instructions .ROUTE .COMPLEX Qty: 90 0RF Rx Instructions: 40 mg (2 caps) PO QAM and 20 mg (1 cap) PO Q Noon; dextroamphetamine-amphetamine 20 mg capsule,extended release 24hr See Rx Instructions .ROUTE .COMPLEX Qty: 90 0RF Rx Instructions: 40 mg (2 tabs) PO QAM and 20 mg (1 tab) PO QNoon; acetaminophen [Tylenol Extra Strength] 500 mg tablet 1,000 mg PO Q6H PRN Excedrin Extra Strength 250-250-65 mg tablet 1 tab PO Q4-6H PRN chlordiazepoxide HCl 25 mg capsule 25 mg PO QID Qty: 12 0RF Rx Instructions: until symptoms controlled lorazepam 1 mg tablet 1 mg PO TID Qty: 6 0RF Rx Instructions: Day 1 1 tablet 3 times a day, Day 2 1 tablet twice a day, Day 3 1 tablet chlordiazepoxide HCl 25 mg capsule 25 mg PO QID Qty: 12 0RF penicillin V potassium 500 mg tablet 500 mg PO TID Qty: 21 0RF hydrocodone-acetaminophen 5-325 mg tablet 1 tab PO Q6H PRN (Reason: pain) Qty: 10 0RF Referrals: Lexa Husain DMD [Physician, Dentistry] Dagoberto Marie DO [Primary Care Provider, Family Practice] Stand Alone Forms: Patient Portal/API, Work Release Note
[2024-10-22] MEDS: SODIUM CHLORIDE 0.9% 1,000 ML 1000 ML IV (06:47)
[2024-10-22] MEDS: ONDANSETRON 4 MG/2 ML INJ IV (06:49)
[2024-10-22] MEDS: KETOROLAC 30 MG/ML VIAL 15 MG IV (06:52)
[2024-10-22] MEDS: AMPICILLIN/SULBACTAM 3 GM 3 GM in SODIUM CHLORIDE 0.9% 100 ML IV (06:58)
[2024-10-22 07:13] LABS: Add Manual Diff / Slide Review NO; Hematocrit 34.6 % (41-53); Hemoglobin 11.6 g/dL (13.5-17.5); Lymphocytes Absolute Auto 1300 /uL (1100-4500); Mean Corpuscular HGB Conc 33.5 % (30-36); Mean Corpuscular Hemoglobin 29.4 PG (26-34); Mean Corpuscular Volume 87.6 fL (80-100); Platelet Count 264 X10^3/uL (150-400)
[2024-10-22 07:25] LABS: Alanine Aminotransferase 36 IU/L (<50); Albumin 4.0 g/dL (3.5-5.0); Albumin Globulin Ratio 1.2 (1.0-2.8); Alkaline Phosphatase 66 U/L (38-126); Blood Urea Nitrogen 11 mg/dL (9-20); Calcium 8.8 mg/dL (8.4-10.2); Carbon Dioxide 25 mmol/L (22-32); Chloride 105 mmol/L (98-107); Estimated Glomerular Filt Rate > 60 mL/min (>60); Globulin 3.3 g/dL (1.7-4.1); Glucose 109 mg/dL (70-99); HEMOLYSIS < 15 (0-50); Potassium 3.9 mmol/L (3.4-5.1); Sodium 138 mmol/L (137-145); Total Protein 7.3 g/dL (6.3-8.2)
== END 2024-10-22 10:02 | disposition home or self-care (01) ==
PROVIDERS: Emergency Medicine; Emergency Provider Emergency Medicine; PCP Family Medicine
DX: K04.7 Periapical abscess without sinus (principal); F19.10 Other psychoactive substance abuse, uncomplicated
CPT/HCPCS: 70491; 80053; 85025; 96365; 96366; 96375; 99284; J0295; J1100; J1171; J1885; J2405; Q9967

== ENCOUNTER 2024-12-02 14:59 | Emergency (ER) | payer OTHER, SELFPAY ==
[2024-12-02 15:18] VITALS: BP 126/78; PULSE 97; RESP 17; TEMP 37.1; O2SAT 99; BMI 29.5
[2024-12-02] MEDS: BUPRENORPHINE/NALOXONE 8MG/2MG 1 TAB SL (16:10)
[2024-12-02 16:59] VITALS: BP 130/77; PULSE 89; RESP 17; O2SAT 98
--- NOTE | 2024-12-02 19:32 | ED_ITS ---
HPI - Recheck/Abnormal Lab/Rx <Wayne Pillai PA-C - Last Filed: 12/02/24 19:36> General Chief Complaint: Recheck/Abnormal Lab/Rx Stated Complaint: looking for rx refill suboxone Time Seen by Provider: 12/02/24 15:42 Source: patient Mode of arrival: Ambulatory History of Present Illness HPI narrative: 34-year-old male presents to the ED for a dose of Suboxone that he takes as maintenance therapy for alcohol dependence. Patient has been sober for a your successfully by taking Suboxone daily. Patient has been unable to obtain his Suboxone for the last 4 days since his insurance changed and he did not have the money to pay for it. Patient does get paid tomorrow, is able to mixing picker tender his prescription tomorrow. Meanwhile, patient is experiencing some withdrawal symptoms including feeling cold, jittery, rhinorrhea, anxiety. Patient is nervous since he feels the urge to drink again and would like not to. No chest pain, shortness of breath. Related Data Home Medications ?Medication ?Instructions ?Recorded ?Confirmed acetaminophen 500 mg tablet 1,000 mg PO Q6H PRN 03/06/23 (Tylenol Extra Strength) [id number]-pcgctyrl 250 1 tab PO Q4-6H PRN 07/26/18 03/06/23 mg-250 mg-65 mg tablet (Excedrin Extra Strength) bupropion HCl 300 mg 24 hr tablet, 300 mg PO DAILY 03/06/23 extended release hydroxyzine pamoate 50 mg capsule 50 mg PO 3XD 4 03/06/23 Previous Rx's ?Medication ?Instructions ?Recorded dextroamphetamine-amphetamine ER See Rx Instructions . Route 05/30/22 20 mg 24hr capsule,extend release .COMPLEX #90 caps dextroamphetamine-amphetamine ER See Rx Instructions . Route 05/30/22 20 mg 24hr capsule,extend release .COMPLEX #90 caps dextroamphetamine-amphetamine ER See Rx Instructions . Route 09/18/22 20 mg 24hr capsule,extend release .COMPLEX #90 caps lidocaine 5 % topical patch 1 patch topical DAILY #15 ea 03/06/23 lorazepam 1 mg tablet 1 mg PO TID #6 tabs 07/22/23 chlordiazepoxide HCl 25 mg capsule 25 mg PO QID #12 ca ps 09/12/23 chlordiazepoxide HCl 25 mg capsule 25 mg PO QID 12 dos es #12 caps 10/25/23 hydrocodone 5 mg-acetaminophen 325 1 tab PO Q6H PRN pa in #10 tabs 10/20/24 mg tablet penicillin V potassium 500 mg 500 mg PO TID #21 tabs 0 10/20/24 tablet amoxicillin 875 mg-potassium 1 tab PO BID #20 tabs 12/06 clavulanate 125 mg tablet hydrocodone 5 mg-acetaminophen 325 1 tab PO Q6H PRN pa in #7 tabs 10/22/24 mg tablet Allergies Allergy/AdvReac Type Severity Reaction Status Date / Time No Known Drug Allergies Allergy Verified 12/02/24 15:18 Review of Systems <Wayne Pillai PA-C - Last Filed: 12/02/24 19:36> Constitutional Constitutional: Reports chills, Denies fatigue, Denies fever(s), Denies frequent falls, Denies lethargy and Denies weakness Eyes Eyes: Denies change in vision, Denies eye discharge, Denies irritation and Denies loss of vision ENT Ears, Nose, Mouth, and Throat: Denies change in voice, Denies dizziness, Reports nasal discharge, Denies neck pain, Denies sore throat and Denies throat swelling Cardiovascular Cardiovascular: Denies chest pain, Denies irregular heart rhythm, Denies lightheadedness, Denies palpitations, Denies dyspnea, Denies dyspnea on exertion and Denies orthopnea Respiratory Respiratory: Denies cough, Denies dyspnea, Denies dyspnea on exertion and Denies wheezing Gastrointestinal Gastrointestinal: Denies abdominal pain, Denies change in bowel habits, Denies diarrhea, Denies nausea and Denies vomiting Musculoskeletal Musculoskeletal: Denies neck pain and Denies numbness Integumentary/Breasts Skin/Breast: Denies pruritus, Denies erythema, Denies rash and Denies wounds Neurologic Neurologic: Denies behavioral changes, Denies confusion, Denies dizziness, Denies frequent falls, Denies loss of vision, Denies numbness and Denies weakness Psychiatric Psychiatric: Reports anxiety, Denies behavioral changes, Denies confusion, Denies depression, Denies homicidal ideation and Denies suicidal ideation Endocrine Endocrine: Denies fatigue, Denies flushing and Denies palpitations Hematologic/Lymphatic Hematologic/Lymphatic: Denies easy bruising Allergic/Immunologic Allergic/Immunologic: Denies urticaria, Denies throat swelling and Denies wheezing Patient History <Wayne Pillai PA-C - Last Filed: 12/02/24 19:36> Medical History History of pancreatitis Anxiety Tachycardia Cocaine abuse Alcohol abuse Alcoholism Social History Tobacco: How many years used: 10 quit status: not considering quitting second hand exposure: No alcohol intake: current substance use type: does not use tobacco type: cigarettes and vaping alcohol intake frequency: 0-2 drinks per day Alcohol type: wine Exam <Wayne Pillai PA-C - Last Filed: 12/02/24 19:36> Narrative Exam Narrative: Const General:?cooperative, healthy, somewhat anxious HENMT Head:?normal to inspection Ears:?hearing grossly normal bilaterally Nose:?external nose normal Face and sinus:?normal facial exam and sinuses nontender Mouth:?oral mucosae normal Throat:?posterior oropharynx normal Eyes General:?appearance normal, both eyes and all related structures Neck Neck:?normal visual inspection and no lymphadenopathy noted Resp Effort & Inspection:?normal respiratory effort Auscultation:?clear to auscultation bilaterally Cardio Rate:?regular rate Rhythm:?regular rhythm Neuro General:?patient alert, patient awake and patient oriented x3 Initial Vital Signs Initial Vital Signs: Vital Signs Temperature 98.8 F 12/02/24 15:18 Pulse Rate 97 H 12/02/24 15:18 Respiratory Rate 17 12/02/24 15:18 Blood Pressure 126/78 12/02/24 15:18 Pulse Oximetry 99 12/02/24 15:18 Oxygen Delivery Method Room Air 12/02/24 15:18 <Rebecca Garcia DO - Last Filed: 12/06/24 08:02> Initial Vital Signs Initial Vital Signs: Vital Signs Temperature 98.8 F 12/02/24 15:18 Pulse Rate 97 H 12/02/24 15:18 Respiratory Rate 17 12/02/24 15:18 Blood Pressure 126/78 12/02/24 15:18 Pulse Oximetry 99 12/02/24 15:18 Oxygen Delivery Method Room Air 12/02/24 15:18 Course <Wayne Pillai PA-C - Last Filed: 12/02/24 19:36> Orders Ordered: Discontinued Medications Buprenorphine/Naloxone (Buprenorphine/Naloxone 8mg/2mg 1 Tab) 1 tab SL DAILY MANISH Buprenorphine/Naloxone (Buprenorphine/Naloxone 8mg/2mg 1 Tab) 1 tab SL NOW ONE Stop: 12/02/24 15:46 Last Admin: 12/02/24 16:10 Dose: 1 tab Documented By: SB Vital Signs Vital signs: Vital Signs - 8 hr 12/02/24 15:18 12/02/24 16:59 Temperature 98.8 F Pulse Rate 97 H 89 Respiratory Rate 17 17 Blood Pressure 126/78 130/77 Pulse Oximetry 99 98 Oxygen Delivery Method Room Air Room Air <Rebecca Garcia DO - Last Filed: 12/06/24 08:02> Orders Ordered: Discontinued Medications Buprenorphine/Naloxone (Buprenorphine/Naloxone 8mg/2mg 1 Tab) 1 tab SL DAILY MANISH Buprenorphine/Naloxone (Buprenorphine/Naloxone 8mg/2mg 1 Tab) 1 tab SL NOW ONE Stop: 12/02/24 15:46 Last Admin: 12/02/24 16:10 Dose: 1 tab Documented By: SB Vital Signs Vital signs: Vital Signs - 8 hr 12/02/24 15:18 12/02/24 16:59 Temperature 98.8 F Pulse Rate 97 H 89 Respiratory Rate 17 17 Blood Pressure 126/78 130/77 Pulse Oximetry 99 98 Oxygen Delivery Method Room Air Room Air MDM - Recheck/Abnormal Lab/Rx <Wayne Pillai PA-C - Last Filed: 12/02/24 19:36> MDM Narrative Medical decision making narrative: 34-year-old male presents to the ED for a dose of Suboxone that he takes as maintenance therapy for alcohol dependence. Patient given his daily Suboxone dose today. Patient is grateful for the help he received today and agrees to mixing picker tender his prescription tomorrow. ED return precautions discussed with patient. Patient verbalized understanding. Medical records reviewed: Yes Discharge Plan Departure Patient Disposition: Home Clinical Impression: Encounter for monitoring Suboxone maintenance therapy Instructions: Buprenorphine Sublingual and Buccal (opioid dependence) Activity Restrictions/Additional Instructions: You were seen in the emergency department today since you have missed a few doses of the Suboxone and are beginning to feel withdrawal symptoms. You were given your daily dose of Suboxone today. It is reassuring to note that you will be able to mixing picker tender your prescription from the pharmacy tomorrow. Congratulations on staying sober for the last year and we wish you the very best. Prescriptions: No Action bupropion HCl 300 mg tablet extended release 24 hr 300 mg PO DAILY hydroxyzine pamoate 50 mg capsule 50 mg PO 3XD lidocaine 5 % adhesive patch,medicated 1 patch topical DAILY Qty: 15 0RF Rx Instructions: leave on most painful area for up to 12 hrs dextroamphetamine-amphetamine 20 mg capsule,extended release 24hr See Rx Instructions .ROUTE .COMPLEX Qty: 90 0RF Rx Instructions: 40 mg (2 caps) PO QAM and 20 mg (1 cap) PO Q Noon dextroamphetamine-amphetamine 20 mg capsule,extended release 24hr See Rx Instructions .ROUTE .COMPLEX Qty: 90 0RF Rx Instructions: 40 mg (2 caps) PO QAM and 20 mg (1 cap) PO Q Noon; dextroamphetamine-amphetamine 20 mg capsule,extended release 24hr See Rx Instructions .ROUTE .COMPLEX Qty: 90 0RF Rx Instructions: 40 mg (2 tabs) PO QAM and 20 mg (1 tab) PO QNoon; acetaminophen [Tylenol Extra Strength] 500 mg tablet 1,000 mg PO Q6H PRN Excedrin Extra Strength 250-250-65 mg tablet 1 tab PO Q4-6H PRN chlordiazepoxide HCl 25 mg capsule 25 mg PO QID Qty: 12 0RF Rx Instructions: until symptoms controlled amoxicillin-pot clavulanate 875-125 mg tablet 1 tab PO BID Qty: 20 0RF hydrocodone-acetaminophen 5-325 mg tablet 1 tab PO Q6H PRN (Reason: pain) Qty: 7 0RF lorazepam 1 mg tablet 1 mg PO TID Qty: 6 0RF Rx Instructions: Day 1 1 tablet 3 times a day, Day 2 1 tablet twice a day, Day 3 1 tablet chlordiazepoxide HCl 25 mg capsule 25 mg PO QID Qty: 12 0RF penicillin V potassium 500 mg tablet 500 mg PO TID Qty: 21 0RF hydrocodone-acetaminophen 5-325 mg tablet 1 tab PO Q6H PRN (Reason: pain) Qty: 10 0RF Referrals: Dagoberto Marie DO [Primary Care Provider, Family Practice] Stand Alone Forms: Patient Portal/API ED Sign-out <Rebecca Garcia DO - Last Filed: 12/06/24 08:02> Cosign ED Attending Cosmandiature Attestation: I was available for consultation.
== END 2024-12-02 17:01 | disposition home or self-care (01) ==
PROVIDERS: Emergency Provider Student in an Organized Health Care Education/Training Program; PCP Family Medicine
DX: Z51.81 Encounter for therapeutic drug level monitoring (principal)
CPT/HCPCS: 99283